=== PATIENT | male | born 1930 | race Hispanic/Latino ===

== ENCOUNTER 2016-09-15 09:15 | Emergency (ER) | payer MEDICARE, OTHER ==
[~2016-09-15] VITALS: Ht 165.1 cm; Wt 84.1 kg
[~2016-09-15 09:15] MED LIST: ACET325T51 PO; ALBU18HF INHALATION; AMLO5TAB2 PO; CHOL10008 PO; CYAN10008 PO; DABI150C PO; DOCU-41 PO; FERR-74 PO; FINA5TAB9 PO; GABA300C PO; KEN1C TOPICAL; KTC2C15 TOPICAL; LACT1CAP6 PO; LEVE500T3 PO; LOSA100T3 PO; LVF250T PO; MELO-253 PO; MULT-666 PO; NIT3 SL
[2016-09-15 09:19] VITALS: BP 190/79; PULSE 61; RESP 16; O2SAT 100
--- NOTE | 2016-09-15 09:28 | ED.REPORT ---
HPI-Neurologic Deficit Date of Service Sep 15, 2016 ED Provider: Quirino Pino DO The patient is an 86 year old male with history of a previous stroke, seizures on Keppra, hypertension, and carotid stenosis, who was brought to the emergency department for altered mental status. The patient normally gets up in the morning after his gets up and gets himself ready. This morning he did not get up on time and was minimally responsive to his when she went to check on him. His states, "he kept looking at me and asking me who I was." This is not normal for him. She is unsure if he had a facial droop or any lateralizing symptoms. His blood pressure was also noted to be elevated in the 200s/100s. He is back to baseline at this time and his only complaint is a rash to his feet and arm. He has been evaluated for this in the past and treated. He was able to take his normal medication this morning. He has not recently been sick. His last seizure was about 2 years ago. He is on 81 mg aspirin daily, no other blood thinners. Nursing Notes Stated Complaint: RASH ON BOTH LEGS/TIRED Chief Complaint: General Complaint Nursing Notes Reviewed: Yes Allergies: Coded Allergies: No Known Allergies (Verified , 04/28/16) Scheduled Amlodipine (Amlodipine) 5 Mg Tablet 5 MG PO DAILY Cholecalciferol (Vitamin D3) (Vitamin D3) 1,000 Unit Tab.chew 1,000 UNIT PO DAILY Cyanocobalamin (Vitamin B-12) (Vitamin B-12) 1,000 Mcg Tablet 1,000 MCG PO DAILY Dabigatran Etexilate Mesylate (Pradaxa) 150 Mg Capsule 150 MG PO BID Ferrous Sulfate (Feosol) 325 Mg Tablet 325 MG PO DAILYWM Finasteride (Finasteride) 5 Mg Tablet 5 MG PO DAILY Gabapentin (Neurontin) 300 Mg Capsule 600 MG PO TID Ketoconazole (Ketoconazole) 15 Gm Cream..g. 1 APPLIC TOPICAL DAILY apply daily to affected areas Lactobacillus Acidophilus/Pect (Acidophilus-Pectin Capsule) 1 Each Capsule 1 EACH PO DAILY Levetiracetam (Levetiracetam) 500 Mg Tablet 1,000 MG PO BID Levofloxacin (Levaquin) 250 Mg Tablet 250 MG PO DAILY Losartan Potassium (Cozaar) 100 Mg Tablet 100 MG PO DAILY Meloxicam (Meloxicam) 15 Mg Tablet 15 MG PO HS Multivitamin (Once Daily) 1 Each Tablet 1 EACH PO DAILY Triamcinolone Acet (Triamcinolone Acetonide Cream) 1 Applic/0.25 Gm Cr 1 APPLIC TOPICAL BID apply twice a day to affected areas Scheduled PRN Acetaminophen (Acetaminophen) 325 Mg Tablet 650 MG PO Q6 HR PRN PRN For Pain Albuterol Sulfate (Ventolin HFA Inhaler) 200 Puff/18 Gm Inhaler 2 PUFFS INHALATION QID PRN PRN For Shortness of Breath Docusate Sodium (Colace) 100 Mg Capsule 100 MG PO DAILY PRN PRN For Constipation Nitroglycerin SL (Nitrostat) 0.3 Mg Tab.subl 0.3 MG SL Q5MIN PRN PRN For Chest Pain General Time Seen by Provider: 09:40 Chief Complaint Mental status change Hx Obtained From: Patient, Spouse, Son Arrived By: Walk-in Sudden in Onset?: Yes Onset Occurred: Onset unknown Context of Onset: During sleep Symptom Duration: Duration unknown Progression Since Onset: Gradually improving Severity: Current: No pain currently Severity: Maximum: No pain Pertinent Negative: Pt denies other symptoms Recent Healthcare: No recent doctor visit, No recent hospitalization Similar Sx Previous: No Risk Factors NIH Stroke Scale Level of Consciousness: Alert and responsive (0) Ask Month & Age: Both questions right (0) Open/Close Eyes/Hand Trimmer Climber: Performs both tasks (0) Horizontal EO Movements: None (0) Visual Diggs: No visual loss (0) Facial Palsy: Normal symmetry (0) Right Arm Motor Drift (10s): No drift 10 sec (0) Left Arm Motor Drift (10s): No drift 10 sec (0) Right Leg Motor Drift (5s): No drift 5 sec (0) Left Leg Motor Drift (5s): No drift 5 sec (0) Limb Ataxia FNF/Heel-Osborne: No ataxia (0) Sensation (Arms/Legs/Face): No sensory loss (0) Language Aphasia: No aphasia, normal (0) Dysarthria: No dysarthria, normal (0) Extinction/Inattention: No exctinct/inattent (0) NIHSS Score: 0 Time NIHSS Performed: 09:53 Date NIHSS Performed: Sep 15, 2016 Past Medical History Past Medical History TIA Seizure Hypertension Anemia Carotid stenosis cataracts Reports: Stroke Past Surgical History Cervical spine surgery x 2 Tonsillectomy, Appendectomy Family History Noncontributory Smoking History Former Smoker Social History Alcohol Use: Denies alcohol use Drug Use: Denies drug use Other Social History: Good social support, , Local resident Ambulatory Status Independent Review of Systems Constitutional: Denies: Fever Respiratory: Denies: Non-productive cough GI: Denies: Diarrhea, Vomiting Skin: Reports Rash Neurologic: Reports: Confusion Psychiatric: Reports: Change mental status Complete sys rev & neg: except as marked. Ears / Nose / Throat: Denies: Nasal congestion, Sore throat Physical Exam Initial Vital Signs Vital Signs (First) Date Time Temp Pulse Resp B/P Pulse Ox O2 Delivery O2 Flow Rate FiO2 09/15/16 09:19 36.0 61 16 190/79 100 Room Air Initial VS: Reviewed ENT: Mucous membranes moist, Conjunctiva normal, No scleral icterus Neck: Supple, Non-tender, Full range of motion Abdomen / GI: Soft, Non-tender, No guarding, No rebound, No distention Lymphatic: No lymphadenopathy Extremities: Vascular intact, Neuro intact, No swelling, No tenderness Psychiatric: Mood/affect normal, Behavior normal, Normal thought content General/Constitutional: Awake, Alert, Cooperative Head / Eyes: Atraumatic, Normocephalic, PERRL, EOMI Respiratory / Chest: Atraumatic, Breath sounds NL, Breath sounds = bilat, No respiratory distress, No rales, No rhonchi, No wheezing Cardiovascular: Heart rate NL, Regular rhythm, Heart sounds NL, No gallop, No murmurs, No rubs, Peripheral circulation NL Neurologic: Oriented X3, Speech NL, No motor deficits, No sensory deficits, CN II - XII intact, Cerebellar NL NIHSS: 0 Skin: Color NL, Warm Rash / Lesion Notes: Excoriated rash on the soles of his feet (family states this is chronic) Interpretation & Diagnostics Lab Results Interpretation Result Diagram: 09/15/16 0950 09/15/16 0950 Test 09/15/16 09:50 White Blood Count 8.9th/mm3 (3.8-10.1) Red Blood Count 3.95mil/mm3 (4.40-5.80) Hemoglobin 12.4g/dL (13.8-17.2) Hematocrit 37.0% (41.0-50.0) Mean Corpuscular Volume 93.7fL (81-100) Mean Corpuscular Hemoglobin 31.4pg (27.0-35.0) Mean Corpuscular Hemoglobin Concent 33.5% (32.0-37.0) Red Cell Distribution Width 12.7% (12.3-15.4) Platelet Count 230bil/L (150-400) Neutrophils (%) (Auto) 59.7% (40-74) Lymphocytes (%) (Auto) 25.7% (14-46) Monocytes (%) (Auto) 11.6% (4-12) Eosinophils (%) (Auto) 2.7% (0-5) Basophils (%) (Auto) 0.2% (0-3) Prothrombin Time 10.4sec (8.1-12.5) Prothromb Time International Ratio 0.97ratio Activated Partial Thromboplast Time 26.4sec (22.8-33.0) Sodium Level 141mEq/L (134-144) Potassium Level 4.0mEq/L (3.5-5.2) Chloride Level 103mEq/L (97-108) Carbon Dioxide Level 22mmol/L (18-29) Blood Urea Nitrogen 20mg/dL (8-27) Creatinine 1.08mg/dL (0.76-1.27) Estimat Glomerular Filtration Rate 69mL/min (>59) Glucose Level 105mg/dL (60-99) Calcium Level 9.9mg/dL (8.5-10.1) Total Bilirubin 0.4mg/dL (0.0-1.2) Aspartate Amino Transf (AST/SGOT) 20U/L (0-50) Alanine Aminotransferase (ALT/SGPT) 15U/L (0-44) Alkaline Phosphatase 76U/L (25-160) Troponin T 0.010ug/L (0.0-0.011) Total Protein 8.0g/dL (6.4-8.4) Albumin 4.4g/dL (3.4-5.0) Hold Macias Top Tube Received (Received) ECG Interpretation ECG Interpretation: Sinus rhythm LBBB Time: 10:28 Interpreted by: ED physician X-Ray Chest Interpretation Chest Xray Interpretation: IMPRESSION: Left basilar infiltrate or atelectasis. Dictated by: Edgar Martin M.D. on 09/15/2016 at 10:16 Interpretation / Wet Read by: Interpret - Radiologist CT Head Interpretation IMPRESSION: 1. No acute intracranial hemorrhage. 2. Extensive chronic small vessel ischemic changes. 3. Mild parenchymal volume loss. Dictated by: Sanjeev Panchal M.D. on 09/15/2016 at 9:31 Study: Head CT no contrast Interpretation / Wet Read by: Interpret - Radiologist Re-Eval/Medical Decision Med Decision/Clinical Course Patient had an isolated episode of altered mental status of unclear etiology there were no reported strokelike symptoms and the patient is back to normal baseline. Discussion with the family would like to take the patient home. Workup unremarkable in the ER. Specifically no urinary tract symptoms. retrurn and follow-up precautions given Source of Hx: Old records, Family Re-Evaluation/Progress #1: Time of Eval: 09:48 Re-Evaluation/Progress Note: Discussed plan for workup with the patient and his family. Re-Evaluation/Progress #2: Time of Eval: 09:56 Re-Evaluation/Progress Note: Discussed exam findings with the patient and family. Re-Evaluation/Progress #3: Time of Eval: 10:59 Re-Evaluation/Progress Note: Rechecked the patient. Updated the family and patient on results. Re-Evaluation/Progress #4: Time of Eval: 12:14 Re-Evaluation/Progress Note: Rechecked the patient. He denies any urinary symptoms. Discussed plan for discharge. All questions were addressed. Counseled Regarding: Diagnosis, Lab results, Need for follow-up, When/why to return to ED Discharge & Departure Impression: Primary Impression: Altered mental status Altered mental status type: unspecified Qualified Code: R41.82 - Altered mental status, unspecified Disposition: Home Discharge Condition All VS Reviewed: Yes Condition: Stable Additional Instructions: Thank you for entrusting us with your care today. Your workup today is reassuring. It is unclear what caused your symptoms this morning. Continue taking your normal medication. Followup with your regular doctor next week for re-evaluation. Please return to the emergency department for any new or concerning symptoms. Referrals: Roderick Rausch MD (PCP) Scribe Attestation Portions of this note were transcribed by Lena Buenrostro. Dr. Alvarez Etienne personally performed the history, physical exam and medical decision-making; I reviewed and confirmed the accuracy of the information in the transcribed note. Signed by: Trista Corona, 09/15/2016 at 1230. copies to: Roderick Rausch MD, Timothy S DO Sep 15, 2016 09:28 Lena Buenrostro Sep 15, 2016 09:32
[2016-09-15] MEDS ORDERED: 0.9% Sodium Chloride 1,000 ML IV ONE (09:49)
[2016-09-15 10:03] LABS: BASOPHILS % (AUTO) 0.2 % (0-3); EOSINOPHILS % (AUTO) 2.7 % (0-5); MONOCYTES % (AUTO) 11.6 % (4-12); Mean Corpuscular Hemoglobin 31.4 pg (27.0-35.0); Mean Corpuscular Volume 93.7 fL (81-100); NEUTROPHILS % (AUTO) 59.7 % (40-74); Platelet Count 230 bil/L (150-400)
--- NOTE | 2016-09-15 10:19 | DRSVH ---
PROCEDURE: X-RAY CHEST ONE VIEW, PORTABLE ([id number]) INDICATIONS: Altered mental status TECHNIQUE: One view of the chest was acquired. COMPARISON: [facility], CR, XR CHEST 2VW, 05/10/2016, 9:12. [facility], CR , XR CHEST 1VW (PORTABLE), 04/30/2016, 5:28. FINDINGS: Surgical changes and devices: Lower cervical spine fusion.. Lungs and pleura: Left basilar opacity may be infiltrate or atelectasis. No pleural effusions or pne umothorax. Mediastinum: Mediastinal contours appear normal. Heart size is normal. Bones and chest wall: No suspicious bony lesions. Overlying soft tissues appear unremarkable. IMPRESSION: Left basilar infiltrate or atelectasis. Dictated by: Edgar Martin M.D. on 09/15/2016 at 10:16 Approved by: Edgar Martin M.D. on 09/15/2016 at 10:17
[2016-09-15 10:30] LABS: INR 0.97 ratio
[2016-09-15 10:31] LABS: TROPONIN T 0.01 ug/L (0.0-0.011)
--- NOTE | 2016-09-15 10:34 | DRSVH ---
PROCEDURE: CT BRAIN WITHOUT CONTRAST ([id number]) INDICATIONS: AMS, h/o CVA, HTN TECHNIQUE: Noncontrast 4.5 mm thick angled axial sections acquired from the foramen magnum to the vertex, with c oronal reformats. COMPARISON: [facility], CT, BRAIN (TPA), 03/23/2015, 16:02. FINDINGS: Image quality: Diagnostic. Brain: There is no acute intra-axial or extra-axial hemorrhage. No extra-axial fluid collection is i dentified. There is no midline shift or mass effect. The orbits are grossly unremarkable. No large areas of diffusely decreased attenuation are evident within the brain to suggest diffuse cer ebral edema. Extensive confluent areas of decreased density are evident within the periventricular a nd deep white matter of the supratentorial brain. This appearance is similar to the prior study. The ventricles and cortical sulci are mildly prominent. Bones: Calvarium and visualized facial bones are grossly intact. The imaged paranasal sinuses and m astoid air cells are clear. IMPRESSION: 1. No acute intracranial hemorrhage. 2. Extensive chronic small vessel ischemic changes. 3. Mild parenchymal volume loss. Dictated by: Sanjeev Panchal M.D. on 09/15/2016 at 9:31 Approved by: Sanjeev Panchal M.D. on 09/15/2016 at 9:32
[2016-09-15 11:10] VITALS: BP 153/67; PULSE 77; RESP 16
--- NOTE | 2016-09-15 11:50 | NUR ---
Evaluation completed. Please go to "Notes" then click on "Assessments and Notes" (bottom left corner of screen). Then select appropriate discipline tab on top of screen.
[2016-09-15 12:55] VITALS: BP 138/77; PULSE 77; RESP 16
== END 2016-09-15 12:56 | disposition home or self-care (01) ==
LOC: SED 09:15
DX: R41.82 Altered mental status, unspecified (principal); I10 Essential (primary) hypertension; Z86.73 Personal history of transient ischemic attack (TIA), and cerebral infarction without residual deficits; Z87.891 Personal history of nicotine dependence
CPT/HCPCS: 70450; 71010; 80053; 84484; 85025; 85610; 85730; 92610; 93005; 99285; G8996; G8997; G8998

== ENCOUNTER 2016-10-21 22:21 | Inpatient (IN) | payer MEDICARE, OTHER ==
[~2016-10-21] VITALS: Ht 165.1 cm; Wt 79.7 kg
[2016-10-21 22:23] VITALS: BP 181/59; PULSE 90; RESP 24; O2SAT 94
[2016-10-21 23:07] LABS: Mean Corpuscular Hemoglobin 31.3 pg (27.0-35.0); Mean Corpuscular Volume 92.5 fL (81-100); Platelet Count 278 bil/L (150-400)
[2016-10-21 23:08] LABS: BASOPHILS % (AUTO) 0.2 % (0-3); EOSINOPHILS % (AUTO) 0.5 % (0-5); MONOCYTES % (AUTO) 9.6 % (4-12)
[2016-10-21 23:49] LABS: TROPONIN T 0.01 ug/L (0.0-0.011)
--- NOTE | 2016-10-21 23:50 | ED.REPORT ---
HPI-Dyspnea / Wheezing Date of Service October 21, 2016 ED Provider: Erick NguyenO. An 86 year old male with a medical history including TIA, seizure, hypertension , and carotid stenosis presents to the ED with worsening shortness of breath onset three days ago. Associated symptoms include cough, left-sided pleuritic chest pain, fever (39 in ED), and chills. The patient denies nausea, vomiting, or other symptoms. Nursing Notes Stated Complaint: DIFFICULTY BREATHING Chief Complaint: Respiratory Complaints Nursing Notes Reviewed: Yes Allergies: Coded Allergies: No Known Allergies (Verified , 04/28/16) Scheduled Amlodipine (Amlodipine) 5 Mg Tablet 5 MG PO DAILY Cholecalciferol (Vitamin D3) (Vitamin D3) 1,000 Unit Tab.chew 1,000 UNIT PO DAILY Cyanocobalamin (Vitamin B-12) (Vitamin B-12) 1,000 Mcg Tablet 1,000 MCG PO DAILY Dabigatran Etexilate Mesylate (Pradaxa) 150 Mg Capsule 150 MG PO BID Ferrous Sulfate (Feosol) 325 Mg Tablet 325 MG PO DAILYWM Finasteride (Finasteride) 5 Mg Tablet 5 MG PO DAILY Gabapentin (Neurontin) 300 Mg Capsule 600 MG PO TID Ketoconazole (Ketoconazole) 15 Gm Cream..g. 1 APPLIC TOPICAL DAILY apply daily to affected areas Lactobacillus Acidophilus/Pect (Acidophilus-Pectin Capsule) 1 Each Capsule 1 EACH PO DAILY Levetiracetam (Levetiracetam) 500 Mg Tablet 1,000 MG PO BID Levofloxacin (Levaquin) 250 Mg Tablet 250 MG PO DAILY Losartan Potassium (Cozaar) 100 Mg Tablet 100 MG PO DAILY Meloxicam (Meloxicam) 15 Mg Tablet 15 MG PO HS Multivitamin (Once Daily) 1 Each Tablet 1 EACH PO DAILY Scheduled PRN Acetaminophen (Acetaminophen) 325 Mg Tablet 650 MG PO Q6 HR PRN PRN For Pain Albuterol Sulfate (Ventolin HFA Inhaler) 200 Puff/18 Gm Inhaler 2 PUFFS INHALATION QID PRN PRN For Shortness of Breath Docusate Sodium (Colace) 100 Mg Capsule 100 MG PO DAILY PRN PRN For Constipation Nitroglycerin SL (Nitrostat) 0.3 Mg Tab.subl 0.3 MG SL Q5MIN PRN PRN For Chest Pain General Time Seen by MD: 23:49 Chief Complaint Shortness of breath Hx Obtained From: Patient Arrived By: Walk-in Onset Occurred: 3 days ago Symptom Duration: Since onset Location: : Chest left Quality: Painful, Pleuritic Severity: Current: Moderate Severity: Maximum: Moderate Exacerbated by: Deep breath Pertinent Negative: Relieved by nothing Recent Healthcare: No recent doctor visit Past Medical History Past Medical History TIA Seizure Hypertension Anemia Carotid stenosis Cataracts Reports: Stroke Past Surgical History Cervical spine surgery x 2 Tonsillectomy, Appendectomy Family History Noncontributory Smoking History Former Smoker Social History Alcohol Use: Denies alcohol use Drug Use: Denies drug use Other Social History: Good social support, , Local resident Ambulatory Status Independent Review of Systems Constitutional: Reports: Chills, Fever (39 in ED) Respiratory: Reports: Pleuritic pain, Shortness of breath Cardiovascular: Reports: Chest pain (Left-sided) Complete sys rev & neg: except as marked. GI: Denies: Diarrhea, Nausea, Vomiting Physical Exam Initial Vital Signs Vital Signs (First) Date Time Temp Pulse Resp B/P Pulse Ox O2 Delivery O2 Flow Rate FiO2 10/21/16 22:23 39 90 24 181/59 94 Room Air Initial VS: Reviewed Head / Eyes: Atraumatic, Normocephalic ENT: Conjunctiva normal, No scleral icterus Abdomen / GI: Soft, Non-tender Skin: Warm, Dry, No cyanosis Neurologic: Alert, Oriented, Nonfocal Psychiatric: Mood/affect normal, Behavior normal, Normal thought content General/Constitutional: Awake, Alert, No acute distress Neck: Supple, Full range of motion Respiratory / Chest: Breath sounds = bilat, No respiratory distress Crackles bilateral lung bases Cardiovascular: Heart rate NL, Regular rhythm, Heart sounds NL Interpretation & Diagnostics INFLUENZA NEGATIVE Lab Results Interpretation Result Diagram: 10/22/16 0500 10/22/16 0500 Test 10/21/16 23:00 Phosphorus Level 3.1mg/dL (2.5-4.9) Magnesium Level 1.8mg/dL (1.6-2.6) Iron Level 17ug/dL (35-150) Total Iron Binding Capacity 219ug/dL (250-450) Percent Iron Saturation 8%sat (15-50) Unsaturated Iron Binding 202ug/dL Procalcitonin 0.05ng/mL (0.00-0.08) Hold Macias Top Tube Received (Received) General Lab Results Interp 1: Labs reviewed, CBC - leukocytosis, Troponin # 1 normal ECG Interpretation ECG Interpretation: Sinus rhythm rate 86 Multiple PVCs LBBB Time: 23:05 Interpreted by: ED physician X-Ray Chest Interpretation Chest Xray Interpretation: Left lower lobe pneumonia View: Portable, 1 view Interpretation / Wet Read by: Wet read ED physician Re-Eval/Medical Decision Med Decision/Clinical Course 86 year old male presents with fever, rigors and cough. He is found to have pneumonia and leukocytosis. Broad spectrum abx for HCA (recent health care visits) and IV fluids. Will admit to PCU Source of Hx: Old records Re-Evaluation/Progress : Time of Eval: 00:30 Patient Status: Condition improved Re-Evaluation/Progress Note: Discussed with patient x-ray and lab results, diagnosis, and plan for admit. Patient agrees with plan for care and all questions were addressed. Consultation : Referral / Consult Name: Tera Amador MD Consulted With: Hospitalist Call Returned at: 00:31 Parking Garage Manager: Agrees with eval, Agrees with plan, Accepts admit Counseled Regarding: Diagnosis, Lab results, Need for admission Discharge & Departure Impression: Primary Impression: Left lower lobe pneumonia Pneumonia type: due to unspecified organism Qualified Code: J18.1 - Lobar pneumonia, unspecified organism Disposition: ADMITTED TO HOSPITAL Discharge Condition All VS Reviewed: Yes Condition: Improved Referrals: Roderick Rausch MD (PCP) Scribe Attestation Portions of this note were transcribed by Jammie Cano. I, Dr. Izaguirre, personally performed the history, physical exam, and medical decision-making; I reviewed and confirmed the accuracy of the information in the transcribed note. Signed by: Trista Ibarra, 10/22/2016, 02:50 copies to: Roderick Rausch MD, Todd P DO October 21, 2016 23:50 JAMMIE CANO October 22, 2016 02:28 1.8mg/dL (1.6-2.6) Iron Level 17ug/dL (35-150) Total Iron Binding Capacity 219ug/dL (250-450) Percent Iron Saturation 8%sat (15-50) Unsaturated Iron Binding 202ug/dL Total Bilirubin 0.3mg/dL (0.0-1.2) Aspartate Amino Transf (AST/SGOT) 31U/L (0-50) Alanine Aminotransferase (ALT/SGPT) 18U/L (0-44) Alkaline Phosphatase 102U/L (25-160) Troponin T 0.010ug/L (0.0-0.011) Total Protein 7.4g/dL (6.4-8.4) Albumin 3.7g/dL (3.4-5.0) Procalcitonin 0.05ng/mL (0.00-0.08) Hold Macias Top Tube Received (Received) General Lab Results Interp 1: Labs reviewed, CBC - leukocytosis, Troponin # 1 normal ECG Interpretation ECG Interpretation: Sinus rhythm rate 86 Multiple PVCs LBBB Time: 23:05 Interpreted by: ED physician X-Ray Chest Interpretation Chest Xray Interpretation: Left lower lobe pneumonia View: Portable, 1 view Interpretation / Wet Read by: Wet read ED physician Re-Eval/Medical Decision Source of Hx: Old records Re-Evaluation/Progress : Time of Eval: 00:30 Patient Status: Condition improved Re-Evaluation/Progress Note: Discussed with patient x-ray and lab results, diagnosis, and plan for admit. Patient agrees with plan for care and all questions were addressed. Consultation : Referral / Consult Name: Tera Amador MD Consulted With: Hospitalist Call Returned at: 00:31 Parking Garage Manager: Agrees with eval, Agrees with plan, Accepts admit Counseled Regarding: Diagnosis, Lab results, Need for admission Discharge & Departure Impression: Primary Impression: Left lower lobe pneumonia Pneumonia type: due to unspecified organism Qualified Code: J18.1 - Lobar pneumonia, unspecified organism Disposition: ADMITTED TO HOSPITAL Discharge Condition All VS Reviewed: Yes Condition: Improved Referrals: Roderick Rausch MD (PCP) Trista Attestation Portions of this note were transcribed by Jammie Cano. I, Dr. Izaguirre, personally performed the history, physical exam, and medical decision-making; I reviewed and confirmed the accuracy of the information in the transcribed note. Signed by: Trista Ibarra, 10/22/2016, 02:50 copies to: Roderick Rausch MD, Todd P DO October 21, 2016 23:50 JAMMIE CANO October 22, 2016 02:28
[2016-10-21] MEDS ORDERED: Piperacillin-Tazo 3.375 Gm Inj 3.375 GM in Dextrose 5% Minibag Plus 50 ML IV ONE (23:55)
[2016-10-22] VITALS (12 sets, daily range): BP systolic 130–155; BP diastolic 51–69; PULSE 60–88; RESP 16–20; O2SAT 94–97
[2016-10-22] LABS: Magnesium 1.8 mg/dL (1.6-2.6)
[2016-10-22] MEDS ORDERED: 0.9% Sodium Chloride 1,000 ML IV ONE (00:20)
--- NOTE | 2016-10-22 00:44 | PCM.HPMED ---
Subjective Date of Service October 22, 2016 Primary Provider: Admitting Physician: Primary Care Physician: Roderick Rausch MD Attending Physician: Chief Complaint: Wheezing/dyspnea History of Present Illness: 86-year-old male with a history of hypertension, seizures, stroke, and recent history of pneumonia in May 2016 presents to the emergency department due to 3-4 days worth of cough with nonbloody sputum, dyspnea worse with exertion, chest pain, and fever with chills. Patient states that this came on gradually she developed cough with yellow sputum production and reported fevers. Patient states this gradually gotten worse and today he was having very severe chills and riders. Patient denies any recent contacts or hospital stays in the last 3 months. 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 His confirms this. Patient denies nausea and vomiting, diarrhea, or anorexia. He states his chest pain was worse with deep inspiration and without radiation, diaphoresis, lightheadedness or dizziness, but does state it was substernal. In the Emergency department the patient was febrile with a fever of 39. Blood pressure was 181/59 with pulse of 90 and respiratory rate of 24. Saturating 94 % on room air Leukocytosis of 17.7 and left shift with a mild anemia with a hemoglobin of 10.4. Patient was also hyponatremic with a sodium of 129, hypochloremic at 91, and hyperglycemic at 161. Procalcitonin was pending as was a lactic acid. Review of Systems: Complete review of systems performed; pertinent positives and negatives per History of present illness all others reviewed and are negative Allergies Coded Allergies: No Known Allergies (Verified , 04/28/16) Home Medications Amlodipine (Amlodipine) 5 Mg Tablet 5 MG PO DAILY Cholecalciferol (Vitamin D3) (Vitamin D3) 1,000 Unit Tab.chew 1,000 UNIT PO DAILY Cyanocobalamin (Vitamin B-12) (Vitamin B-12) 1,000 Mcg Tablet 1,000 MCG PO DAILY Dabigatran Etexilate Mesylate (Pradaxa) 150 Mg Capsule 150 MG PO BID Ferrous Sulfate (Feosol) 325 Mg Tablet 325 MG PO DAILYWM Finasteride (Finasteride) 5 Mg Tablet 5 MG PO DAILY Gabapentin (Neurontin) 300 Mg Capsule 600 MG PO TID Ketoconazole (Ketoconazole) 15 Gm Cream..g. 1 APPLIC TOPICAL DAILY apply daily to affected areas Lactobacillus Acidophilus/Pect (Acidophilus-Pectin Capsule) 1 Each Capsule 1 EACH PO DAILY Levetiracetam (Levetiracetam) 500 Mg Tablet 1,000 MG PO BID Levofloxacin (Levaquin) 250 Mg Tablet 250 MG PO DAILY Losartan Potassium (Cozaar) 100 Mg Tablet 100 MG PO DAILY Meloxicam (Meloxicam) 15 Mg Tablet 15 MG PO HS Multivitamin (Once Daily) 1 Each Tablet 1 EACH PO DAILY Triamcinolone Acet (Triamcinolone Acetonide Cream) 1 Applic/0.25 Gm Cr 1 APPLIC TOPICAL BID Acetaminophen (Acetaminophen) 325 Mg Tablet 650 MG PO Q6 HR PRN PRN For Pain Albuterol Sulfate (Ventolin HFA Inhaler) 200 Puff/18 Gm Inhaler 2 PUFFS INHALATION QID PRN PRN For Shortness of Breath Docusate Sodium (Colace) 100 Mg Capsule 100 MG PO DAILY PRN PRN For Constipation Nitroglycerin SL (Nitrostat) 0.3 Mg Tab.subl 0.3 MG SL Q5MIN PRN PRN For Chest Pain PMH TIA Seizure Hypertension Anemia Carotid stenosis cataracts Reports: Stroke Surgical History Cervical spine surgery x 2 Tonsillectomy, Appendectomy Social History Hx Alcohol Use: No Hx Substance Use: No Hx Tobacco Use: Yes (quit 20yrs ago) Smoking Status: Former Smoker Exam Vital Signs Vital Sign - Last Date Time Temp Pulse Resp B/P Pulse Ox O2 Delivery O2 Flow Rate FiO2 10/21/16 22:23 39 90 24 181/59 94 Room Air Exam General: Patient awake and alert and conversive; one to the touch HEENT: PERRLA, EOMI, this membrane stride, neck supple, skin turgor decreased Lymphs: No lymphadenopathy Cardio: Regular rate and rhythm, no murmurs Respiratory: CTA bilaterally with rhonchi in the right lower lobe; crackles left lower lobe Abdomen: Obese, positive bowel sounds, nontender, nondistended Extremities: Pulses intact in all 4 extremities, strength 4 out of 5 throughout Psych: Appropriate mood and affect Neuro: No sensory deficits noted; CN II through XII intact grossly; speech normal Skin: Patient has sloughing skin on the hands and elbows, as well as on the feet bilaterally; 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 Sepsis, source pneumonia; present on admission; ongoing -Patient criteria with leukocytosis of 17.7, fever 39, respirations of 24 -Lactic acid pending -See below for treatment Community acquired pneumonia; present admission; ongoing -Patient has no sick contacts; has not been the hospital or nursing homes; possibility of aspiration is low unless it is silent -CURB-65 is 1 -Blood cultures taken the ED; respiratory panel ordered; sputum cultures ordered -Started patient on ceftriaxone and azithromycin -Incentive spirometry ordered -Speech evaluation also requested -Procal pending -Strep urine ag ordered Chest pain; present admission; ongoing -Suspicious for pleuritic chest pain; due to patient's age, hx of hypertension, and pain being substernal will rule out unlikely ACS; -Initial troponin negative; EKG showed possible left bundle branch block and some nonspecific T-wave changes but no elevations -Pain is currently resolved -Continue trending troponin -Consider echo in a.m.; last EF 50-55% with noted conduction abnormality Hypertension; present admission; ongoing -Patient's on amlodipine and losartan as an outpatient; patient has a history of -SBP is 181 in the ED -Labetalol 20 mg IV for blood pressure over 180 Acute hyponatremia; present admission; ongoing -130 corrected; patient appears to be hypovolemic; -Patient receiving 2-3 L NS for sepsis -Urine sodium ordered Anion gap metabolic acidosis second asepsis; present admission; ongoing -Anion gap of 16 -Lactic acid pending -Recheck in a.m. after fluid administration Normocytic normochromic anemia; present on admission; ongoing -Patient presents with a hemoglobin of 10.4; patient has a history of anemia -Iron studies ordered Acute Hyperglycemia; present on admission; ongoing -Patient presents for glucose of 161 history of diabetes -Patient placed on correctional insulin Disposition: Patient to be admitted to the [facility] expected length of stay greater than 2 midnights due to severity of presentation, depression treatment, risk of adverse events. Pain Evaluation: Adequate Pain Control VTE Prophylaxis: Sub-Q Heparin (Unfractionated) Resuscitation Status: CPR: Attempt Resuscitation Attending Statement The patient was seen and examined together with Dr. Martinez on 10/22 and I agree with the history, exam and plan as outlined in the note above. Adrian Martinez DO October 22, 2016 00:44 Tera Amador MD October 22, 2016 03:46
[2016-10-22] MEDS ORDERED: 0.9% Sodium Chloride 1,000 ML IV SCH (01:29)
[2016-10-22] MEDS ORDERED: Ondansetron 2 mg/mL 2 mL Inj IVPUSH PRN (01:30)
[2016-10-22] MEDS ORDERED: Alum-Mag Hydrox-Simeth 30 mL Suspension PO PRN (01:30)
[2016-10-22] MEDS ORDERED: Polyethylene Glycol (PEG) 17 Gm Powder PO PRN (01:30)
[2016-10-22 01:31] LABS: APPEARANCE,URINE CLEAR (CLEAR,HAZY); COLOR,URINE YELLOW (YELLOW); OCCULT BLOOD,URINE TRACE (NEGATIVE); UROBILINOGEN,URINE NORMAL (NORMAL)
[2016-10-22] MEDS ORDERED: Labetalol 5 mg/mL 4 mL Inj IVPUSH ONE (01:40)
[2016-10-22 02:12] LABS: Unsaturated Iron Binding 202 ug/dL
[2016-10-22] MEDS: Insulin Human REGular 300 Unit/3 mL Inj SUBQ SCH ×4 (02:30→20:25)
[2016-10-22] MEDS: 0.9% Sodium Chloride 1,000 ML IV SCH ×3 (03:30→17:29)
[2016-10-22 05:26] LABS: BASOPHILS % (AUTO) 0.1 % (0-3); EOSINOPHILS % (AUTO) 0.2 % (0-5); MONOCYTES % (AUTO) 9.7 % (4-12); Mean Corpuscular Hemoglobin 31.5 pg (27.0-35.0); Mean Corpuscular Volume 93.3 fL (81-100); NEUTROPHILS % (AUTO) 78.3 % (40-74); Platelet Count 260 bil/L (150-400)
[2016-10-22 05:37] LABS: TROPONIN T 0.01 ug/L (0.0-0.011)
[2016-10-22] MEDS ORDERED: Heparin 5,000 Unit/mL Inj SUBQ SCH (08:30)
[2016-10-22] MEDS ORDERED: Azithromycin Inj 500 MG in Dextrose 5% w/Vial Mate 250 ML IV SCH (08:30)
[2016-10-22] MEDS ORDERED: cefTRIAXone Inj 2,000 MG in Dextrose 5% Minibag Plus 50 ML IV SCH (08:30)
--- NOTE | 2016-10-22 09:06 | DRSVH ---
PROCEDURE: X-RAY CHEST ONE VIEW, PORTABLE ([id number]) INDICATIONS: cp TECHNIQUE: One view of the chest was acquired. COMPARISON: [facility], CR, XR CHEST 1VW, 10/22/2016, 0:18. [facility], CR, XR CHEST 1VW (PORTABLE), 09/15/2016, 9:53. FINDINGS: Surgical changes and devices: Cervical spine fixation hardware. Lungs and pleura: No pleural effusions or pneumothorax. Patchy opacity noted in the left lung base s uspicious for pneumonia versus aspiration. Mediastinum: Mediastinal contours appear normal. Heart size is normal. Bones and chest wall: No suspicious bony lesions. Overlying soft tissues appear unremarkable. IMPRESSION: Left basilar pneumonia versus aspiration. Dictated by: Ashley Hinton MD, PhD on 10/22/2016 at 9:04 Approved by: Ashley Hinton MD, PhD on 10/22/2016 at 9:05
[2016-10-22] MEDS: Sodium Chloride LOK Flush 10 mL Syringe IVFLUSH SCH ×2 (09:08→17:48)
--- NOTE | 2016-10-22 09:11 | DRSVH ---
PROCEDURE: X-RAY CHEST ONE VIEW ([id number]) INDICATIONS: lateral to complete 2 view TECHNIQUE: One view of the chest was acquired. COMPARISON: [facility], CR, XR CHEST 1VW (PORTABLE), 10/21/2016, 22:25. FINDINGS: Surgical changes and devices: None. Lungs and pleura: No pleural effusions or pneumothorax. Focal opacity noted in the posterior aspect of the left lung base suspicious for aspiration versus pneumonia. Mediastinum: Mediastinal contours appear normal. Heart size is normal. Bones and chest wall: No suspicious bony lesions. Overlying soft tissues appear unremarkable. IMPRESSION: Left basilar aspiration versus pneumonia. Dictated by: Ashley Hinton MD, PhD on 10/22/2016 at 9:10 Approved by: Ashley Hinton MD, PhD on 10/22/2016 at 9:10
[2016-10-22] MEDS ORDERED: Dextrose 10% 250 ML IV PRN (10:40)
[2016-10-22] MEDS ORDERED: Glucose 40% Oral Gel 15 Gm Tube PO PRN (10:40)
[2016-10-22] MEDS: Insulin LISPRO 300 Unit/3 mL Inj SUBQ SCH ×3 (12:00→22:00)
[2016-10-22] MEDS: Dabigatran 150 mg Capsule PO SCH ×2 (12:18→20:37)
[2016-10-22] MEDS: levETIRAcetam 500 mg Tablet PO SCH ×2 (12:18→20:38)
--- NOTE | 2016-10-22 19:33 | PCM.PNMED ---
Subjective Date of Service October 22, 2016 Subjective Hospital day 2. Patient complaining of his chronic back pain for which he takes Tylenol and occasionally meloxicam. 2 L by nasal cannula admitted overnight for some dyspnea. Today he reports that he is doing very much better. Denies significant complaint at this time. ROS negative otherwise. Exam Vital Signs Vital Sign - Last Date Time Temp Pulse Resp B/P Pulse Ox O2 Delivery O2 Flow Rate FiO2 10/22/16 15:45 36.7 70 18 144/58 95 Room Air 10/22/16 12:24 2.00 Intake and Output 10/21/16 10/21/16 10/22/16 Cumulative From/Thru 15:00 23:00 07:00 10/21/16 22:23 - 10/22/16 06:48 Intake Total 1383 ml 1383 ml Output Total 900 ml 900 ml Balance 483 ml 483 ml IV Total 1383 ml 1383 ml Output Urine Total 900 ml 900 ml Exam General: Patient awake and alert and conversive HEENT: PERRLA, EOMI, this membrane stride, neck supple, skin turgor improved Lymphs: No lymphadenopathy Cardio: Regular rate and rhythm, no murmurs Respiratory: Mild rales in the bilateral bases. Normal respiratory effort on 2 L by nasal cannula. 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 Sepsis, source pneumonia; present on admission; ongoing but improving -Patient criteria with leukocytosis of 17.7, fever 39, respirations of 24 -Lactic acid normalized -See below for treatment Community acquired pneumonia (viral with secondary bacterial); present admission ; ongoing -Patient has no sick contacts; has not been the hospital or nursing homes; possibility of aspiration is low unless it is silent -CURB-65 is 1 -Rhinovirus positive -Positive streptococcal urine antigen -Started patient on ceftriaxone and azithromycin, but these were both discontinued today with initiation of IV penicillin G -Incentive spirometry ordered -Speech evaluation also requested -Procal repeat Chest pain; present admission; resolved -Suspicious for pleuritic chest pain; due to patient's age, hx of hypertension, and pain being substernal will rule out unlikely ACS; -Initial troponin negative; EKG showed possible left bundle branch block and some nonspecific T-wave changes but no elevations -Pain is currently resolved -Continue trending troponin -Consider echo in a.m.; last EF 50-55% with noted conduction abnormality Hypertension; present admission; ongoing -Patient's on amlodipine and losartan as an outpatient; patient has a history of -SBP is 181 in the ED -Labetalol 20 mg IV for blood pressure over 180 Acute hyponatremia; present admission; ongoing but slowly improving -130 corrected; patient appears to be hypovolemic; -Patient receiving 2-3 L NS for sepsis -Urine sodium ordered, and we will add serum and urine osmolality Anion gap metabolic acidosis second asepsis; present admission; ongoing -Anion gap of 16 -Lactic acid normalized -Recheck in a.m. after fluid administration -Treat underlying condition of sepsis Normocytic normochromic anemia; present on admission; ongoing -Patient presents with a hemoglobin of 10.4; patient has a history of anemia -Iron studies ordered Acute Hyperglycemia; present on admission; ongoing -Patient presents for glucose of 161 history of diabetes -Patient placed on correctional insulin (switched to every 6 with meals today as patient is eating) Chronic conditions: Seizure-continue Keppra STroke-patient is on Peridex, this will be continued. Tylenol as needed for his chronic pains. Patient to be admitted to the [facility] expected length of stay greater than 2 midnights due to severity of presentation, depression treatment, risk of adverse events. Anticipate patient will discharge in 1-2 days. Pain Evaluation: Adequate Pain Control VTE Prophylaxis: Sub-Q Heparin (Unfractionated) Resuscitation Status: CPR: Attempt Resuscitation Attending Statement The patient was seen and examined together with Dr. Lind on 10/22/2016 and I agree with the history, exam and plan as outlined in the note above. . Misael Muñoz DO October 22, 2016 19:33 Jorge Workman MD October 23, 2016 14:25
[2016-10-23] VITALS (9 sets, daily range): BP systolic 116–177; BP diastolic 71–101; PULSE 53–81; RESP 14–18; O2SAT 94–98
[2016-10-23] MEDS: 0.9% Sodium Chloride 1,000 ML IV SCH ×3 (00:26→17:29)
[2016-10-23] MEDS: Sodium Chloride LOK Flush 10 mL Syringe IVFLUSH SCH ×3 (00:26→14:53)
[2016-10-23 04:31] LABS: Mean Corpuscular Hemoglobin 31.5 pg (27.0-35.0); Mean Corpuscular Volume 93.8 fL (81-100)
[2016-10-23] MEDS: Insulin Human REGular 300 Unit/3 mL Inj SUBQ SCH ×4 (04:32→20:30)
[2016-10-23] MEDS: Insulin LISPRO 300 Unit/3 mL Inj SUBQ SCH ×4 (08:00→20:40)
[2016-10-23] MEDS: DEXTROSE 5% IV SCH ×3 (08:32→20:36)
[2016-10-23] MEDS: levETIRAcetam 500 mg Tablet PO SCH ×2 (08:32→20:36)
[2016-10-23] MEDS: PENICILLIN K IV SCH ×3 (08:32→20:36)
[2016-10-23] MEDS: Dabigatran 150 mg Capsule PO SCH ×2 (08:32→20:36)
--- NOTE | 2016-10-23 17:59 | PCM.PNMED ---
Subjective Date of Service October 23, 2016 Subjective Mr. Narayanan is an 86-year-old male with a history of hypertension, seizures, stroke , and recent pneumonia in May 2016. He presented with a 3-4 days history of productive cough, dyspnea on exertion, chest pain, fever and chills. Admitted for sepsis secondary to community acquired pneumonia and hyponatremia. Hospital day #2. No acute events overnight. Per nursing, patient somewhat forgetful but otherwise had a good night; remained afebrile and without complaint. This morning patient states that he feels great and would like to go home. He denies fever, chills, chest pain, shortness of breath, abdominal pain, nausea, vomiting , diarrhea or constipation. Exam Vital Signs Vital Sign - Last Date Time Temp Pulse Resp B/P Pulse Ox O2 Delivery O2 Flow Rate FiO2 10/23/16 04:20 36.8 72 18 125/78 96 Room Air 10/22/16 12:24 2.00 Intake and Output 10/22/16 10/22/16 10/23/16 Cumulative From/Thru 15:00 23:00 07:00 10/21/16 22:23 - 10/23/16 05:26 Intake Total 2020 ml 1000 ml 4403 ml Output Total 1400 ml 300 ml 2600 ml Balance 620 ml 700 ml 1803 ml Intake Oral 880 ml 1000 ml 1880 ml IV Total 1140 ml 2523 ml Output Urine Total 1400 ml 300 ml 2600 ml # Voids 3 3 # Bowel Movements 2 2 Exam General: Well-appearing, elderly male, sitting up in the chair, in no acute distress HEENT: Normocephalic, atraumatic. PERRLA, no scleral icterus, oral mucosa moist/ pink Neck: No JVD, lymphadenopathy or thyromegaly. Cardiovascular: Regular rate and rhythm with no murmurs, rubs, or gallops appreciated Pulmonary: Mild bibasilar crackles but otherwise clear to auscultation bilaterally, no wheezing. Abdomen: Soft, nontender, nondistended, no masses appreciated. Bowel tones present. Extremities: No cyanosis or edema, pulses intact and equal bilaterally Skin: Normal temperature, turgor, flaky skin on the hands, feet and elbows bilaterally. No rashes. Neurological: Cranial nerves grossly intact. No focal deficit, speech normal. Psychiatric: Normal mood and affect. Alert and oriented to person, place, and time. IVs and Medications Medications Reviewed: Medications were reviewed in detail Lab and Diagnostics Laboratory Tests Test 10/22/16 11:30 10/23/16 03:00 Troponin T 0.010ug/L (0.0-0.011) White Blood Count 13.8th/mm3 (3.8-10.1) Red Blood Count 3.37mil/mm3 (4.40-5.80) Hemoglobin 10.6g/dL (13.8-17.2) Hematocrit 31.6% (41.0-50.0) Mean Corpuscular Volume 93.8fL (81-100) Mean Corpuscular Hemoglobin 31.5pg (27.0-35.0) Mean Corpuscular Hemoglobin Concent 33.5% (32.0-37.0) Red Cell Distribution Width 12.5% (12.3-15.4) Platelet Count 275bil/L (150-400) Sodium Level 133mEq/L (134-144) Potassium Level 4.4mEq/L (3.5-5.2) Chloride Level 96mEq/L (97-108) Carbon Dioxide Level 21mmol/L (18-29) Blood Urea Nitrogen 12mg/dL (8-27) Creatinine 0.80mg/dL (0.76-1.27) Estimat Glomerular Filtration Rate 97mL/min (>59) Glucose Level 122mg/dL (60-99) Calcium Level 9.1mg/dL (8.5-10.1) Procalcitonin 0.24ng/mL (0.00-0.08) Microbiology 10/22/16 Blood Culture - NO GROWTH AFTER 24 HOURS 10/22/16 Sputum Quality Screen - 10/22/16 Sputum Culture, Resulted 10/22/16 Streptococcus pneumoniae Ag Screen - Positive Result Diagram: 10/23/16 0300 10/23/16 0300 Microbiology 10/22/16 Blood cultures- NO GROWTH at 24H 10/22/16 Sputum culture- NO POLYS SEEN, FEW EPITHELIAL CELLS, MODERATE MIXED NORMAL JOSSELINE 10/22/16 MRSA screen- negative 10/22/16 Respiratory PCR- positive for Rhinovirus X-Rays, CTs and MRIs CXR: Official report pending, but it appears to be consolidations in the right lower lobe Assessment & Plan Mr. Narayanan is an 86-year-old male with a history of hypertension, seizures, stroke , and recent pneumonia in May 2016. He presented with a 3-4 days history of productive cough, dyspnea on exertion, chest pain, fever and chills. Admitted for sepsis secondary to community acquired pneumonia and hyponatremia. Hospital day #2. Streptococcal/viral pneumonia, acute. Present on admission. Active. -Resp PCR positive for Rhinovirus. Positive streptococcal urine antigen -Procalcitonin trended up, 0.24. WBC trended down, 13.4 -Continue IV penicillin G (received ceftriaxone/azithromycin on admission changed on 10/22) -Procalcitonin in the morning -Encourage incentive spirometry Hypertension, chronic. Present on admission. Active. -Patient's on amlodipine and losartan as an outpatient. SBP 181 at presentation. -Continue home medications. -Labetalol 20 mg IV for blood pressure over 180 Hyponatremia, acute. Present admission. Improving. -Likely secondary to dehydration/poor oral intake. Patient clinically appeared hypovolemic on admission. -Received 3L NS for sepsis and sodium slowly improving. Most recent 133. -Repeat BMP in morning Anion gap metabolic acidosis, acute. Present on admission. Active. -Likely secondary to sepsis presentation. Anion gap of 16 -Lactic acid normalized -Repeat CMP in the morning -Treat underlying infection Normocytic normochromic anemia. Present on admission. Active. -Patient with history of anemia and Hb of 10.4. -Supplemental iron. Hyperglycemia, acute. Present on admission. Active. -Glucose of 161 without diagnosis of diabetes -Check HbA1c -Continue correctional insulin. Sepsis, acute. Present on admission. Resolved. -Likely secondary to pneumonia. Met criteria with: leukocytosis of 17.7, fever 39, respirations of 24 -Lactic acid normalized Chest pain, acute. Present admission. Resolved -Likely pleuritic chest pain secondary to pneumonia. ACS less likely as troponin neg x2, EKG w/no acute ischemic changes. Other Chronic conditions. Present on admission. Presumed stable: -Unspecified seizure disorder- continue home Keppra. -History of CVA- continue home Peridex. Disposition: Patient will likely discharge home in 1-2 days. VTE Prophylaxis: Sub-Q Heparin (Unfractionated) Resuscitation Status: CPR: Attempt Resuscitation Attending Statement The patient was seen and examined together with Dr. Maki on 10-23-16 and I agree with the history, exam and plan as outlined in the note above. Alva Maki DO October 23, 2016 08:18 Jd Reed MD October 24, 2016 16:47
[2016-10-24] VITALS (9 sets, daily range): BP systolic 149–194; BP diastolic 56–105; PULSE 60–78; RESP 17–18; O2SAT 94–96
[2016-10-24] MEDS: Sodium Chloride LOK Flush 10 mL Syringe IVFLUSH SCH ×3 (00:26→16:41)
[2016-10-24] MEDS: 0.9% Sodium Chloride 1,000 ML IV SCH ×2 (00:27→09:44)
[2016-10-24] MEDS: Insulin Human REGular 300 Unit/3 mL Inj SUBQ SCH ×2 (00:27→08:28)
[2016-10-24] MEDS: DEXTROSE 5% IV SCH ×3 (03:14→17:17)
[2016-10-24] MEDS: PENICILLIN K IV SCH ×3 (03:14→17:17)
[2016-10-24 06:58] LABS: BASOPHILS % (AUTO) 0.2 % (0-3); EOSINOPHILS % (AUTO) 2.4 % (0-5); MONOCYTES % (AUTO) 11.9 % (4-12); Mean Corpuscular Hemoglobin 31.5 pg (27.0-35.0); Mean Corpuscular Volume 91.3 fL (81-100); NEUTROPHILS % (AUTO) 68.5 % (40-74); Platelet Count 340 bil/L (150-400)
[2016-10-24] MEDS: Insulin LISPRO 300 Unit/3 mL Inj SUBQ SCH ×4 (08:00→21:26)
[2016-10-24] MEDS: levETIRAcetam 500 mg Tablet PO SCH ×2 (08:38→20:52)
[2016-10-24] MEDS: Dabigatran 150 mg Capsule PO SCH ×2 (08:38→20:52)
--- NOTE | 2016-10-24 11:18 | DRSVH ---
PROCEDURE: X-RAY CHEST, TWO VIEWS ([id number]) INDICATIONS: Follow up for Pneumonia TECHNIQUE: 2 views of the chest were acquired. COMPARISON: [facility], CR, XR CHEST 1VW (PORTABLE), 10/21/2016, 22:25. [facility], CR, XR CHEST 1VW, 10/22/2016, 0:18. [facility], CR, XR CHEST 2VW, 05/10/2016, 9: 12. FINDINGS: Surgical changes and devices: Lower cervical spine fixation hardware. Lungs and pleura: Persistent left basilar airspace opacity not significantly changed from prior exami nation. Right lung is clear. Mediastinum: Mediastinal contours are normal. Heart size is normal. Bones and chest wall: No suspicious bony abnormalities. Soft tissues appear unremarkable. IMPRESSION: Left posterior basilar consolidation not significantly changed from the most recent chest radiograph. Continued radiographic surveillance to resolution is recommended. Dictated by: Mika SPANGLER Interpreted: Yana Galvan MD on 10/24/2016 at 11:15 Transcribed by: BRENNA on 10/24/2016 at 11:17 Approved by: Yana Galvan M.D. on 10/25/2016 at 15:56
--- NOTE | 2016-10-24 23:08 | PCM.PNMED ---
Subjective Date of Service October 24, 2016 Subjective Patient is feeling a little bit better today. He has no new complaints. Exam Vital Signs Vital Sign - Last Date Time Temp Pulse Resp B/P Pulse Ox O2 Delivery O2 Flow Rate FiO2 10/24/16 22:02 36.9 71 17 175/75 95 Room Air 10/22/16 12:24 2.00 Intake and Output 10/23/16 10/23/16 10/24/16 Cumulative From/Thru 15:00 23:00 07:00 10/21/16 22:23 - 10/24/16 04:20 Intake Total 1190 ml 5593 ml Output Total 1250 ml 3850 ml Balance -60 ml 1743 ml Intake Oral 1190 ml 3070 ml IV Total 2523 ml Output Urine Total 1250 ml 3850 ml # Voids 3 6 # Bowel Movements 2 Exam General: Patient is in no apparent distress resting comfortably in bed with head elevated at approximately 30. HEENT: Head is atraumatic and normocephalic. Eyes: Pupils are equally round and reactive to light and accommodation. Extraocular muscles are intact. Sclera are white, anicteric. Subconjunctival mucosa is pink. Ears and nose are unremarkable. Oropharynx: There is no mucosal lesions, there is no thrush, there is no pharyngitis. Neck: Is supple, there are no nodes, or masses or tenderness. Chest: Is significant for decreased breath sounds bilaterally with a few adventitious sounds. Heart: Rate, rhythm is regular. There is no murmur, rub or gallop. Abdomen: Good bowel sounds are present. Abdomen is soft, nontender, no organomegaly or masses were appreciated. Extremities: Are symmetrical and well perfused. There is no edema, there is no cellulitis, no rash. Neurologic: There are no focal neurological deficits. Cranial nerves II through XII are intact. There are no sensory or motor deficits. Psychiatric: Patients mood is calm and shows no sign of agitation. Genital: Deferred Rectal: Deferred Lab and Diagnostics Result Diagram: 10/24/16 0625 10/24/16 0625 Microbiology 10/22/16 Blood cultures- NO GROWTH at 24H 10/22/16 Sputum culture- NO POLYS SEEN, FEW EPITHELIAL CELLS, MODERATE MIXED NORMAL JOSSELINE 10/22/16 MRSA screen- negative 10/22/16 Respiratory PCR- positive for Rhinovirus X-Rays, CTs and MRIs Caution: Report not yet finalized and possibly incomplete! PROCEDURE: X-RAY CHEST, TWO VIEWS ([id number]) INDICATIONS: Follow up for Pneumonia TECHNIQUE: 2 views of the chest were acquired. COMPARISON: [facility], CR, XR CHEST 1VW (PORTABLE), 10/21/2016, 22: 25. [facility], CR, XR CHEST 1VW, 10/22/2016, 0:18. [facility], CR, XR CHEST 2VW, 05/10/2016, 9:12. FINDINGS: Surgical changes and devices: Lower cervical spine fixation hardware. Lungs and pleura: Persistent left basilar airspace opacity not significantly changed from prior examination. Right lung is clear. Mediastinum: Mediastinal contours are normal. Heart size is normal. Bones and chest wall: No suspicious bony abnormalities. Soft tissues appear unremarkable. IMPRESSION: Left posterior basilar consolidation not significantly changed from the most recent chest radiograph. Continued radiographic surveillance to resolution is recommended. Dictated by: Mika Mcclain RRA Interpreted: Yana Galvan MD on 10/24/2016 at 11: 15 Transcribed by: BRENNA on 10/24/2016 at 11:17 Assessment & Plan Mr. Narayanan is an 86-year-old male with a history of hypertension, seizures, stroke , and recent pneumonia in May 2016. He presented with a 3-4 days history of productive cough, dyspnea on exertion, chest pain, fever and chills. Admitted for sepsis secondary to community acquired pneumonia and hyponatremia. Hospital day #2. Streptococcal/viral pneumonia, acute. Present on admission. Active. -Resp PCR positive for Rhinovirus. Positive streptococcal urine antigen -Procalcitonin trended up, 0.24. WBC trended down, 13.4 -Continue IV penicillin G (received ceftriaxone/azithromycin on admission changed on 10/22) -Procalcitonin in the morning -Encourage incentive spirometry Hypertension, chronic. Present on admission. Active. -Patient's on amlodipine and losartan as an outpatient. SBP 181 at presentation. -Continue home medications. -Labetalol 20 mg IV for blood pressure over 180 Hyponatremia, acute. Present admission. Improving. -Likely secondary to dehydration/poor oral intake. Patient clinically appeared hypovolemic on admission. -Received 3L NS for sepsis and sodium slowly improving. Most recent 133. -Repeat BMP in morning Anion gap metabolic acidosis, acute. Present on admission. Active. -Likely secondary to sepsis presentation. Anion gap of 16 -Lactic acid normalized -Repeat CMP in the morning -Treat underlying infection Normocytic normochromic anemia. Present on admission. Active. -Patient with history of anemia and Hb of 10.4. -Supplemental iron. Hyperglycemia, acute. Present on admission. Active. -Glucose of 161 without diagnosis of diabetes -Check HbA1c -Continue correctional insulin. Sepsis, acute. Present on admission. Resolved. -Likely secondary to pneumonia. Met criteria with: leukocytosis of 17.7, fever 39, respirations of 24 -Lactic acid normalized Chest pain, acute. Present admission. Resolved -Likely pleuritic chest pain secondary to pneumonia. ACS less likely as troponin neg x2, EKG w/no acute ischemic changes. Other Chronic conditions. Present on admission. Presumed stable: -Unspecified seizure disorder- continue home Keppra. -History of CVA- continue home Peridex. Disposition: Patient will likely discharge home in 1-2 days. Continue IV penicillin and IV fluids for now. Pain Evaluation: Adequate Pain Control VTE Prophylaxis: Sub-Q Heparin (Unfractionated) Resuscitation Status: CPR: Attempt Resuscitation RentonAndry MD October 24, 2016 23:07
[2016-10-25] VITALS (7 sets, daily range): BP systolic 107–178; BP diastolic 56–83; PULSE 52–81; RESP 16–17; O2SAT 92–94
[2016-10-25] MEDS: PENICILLIN K IV SCH ×4 (00:07→17:50)
[2016-10-25] MEDS: DEXTROSE 5% IV SCH ×4 (00:07→17:50)
[2016-10-25] MEDS: Sodium Chloride LOK Flush 10 mL Syringe IVFLUSH SCH ×3 (00:12→16:30)
[2016-10-25 06:37] LABS: BASOPHILS % (AUTO) 0.4 % (0-3); EOSINOPHILS % (AUTO) 3.4 % (0-5); MONOCYTES % (AUTO) 13.8 % (4-12); Mean Corpuscular Volume 90.3 fL (81-100); NEUTROPHILS % (AUTO) 64.2 % (40-74); Platelet Count 358 bil/L (150-400)
[2016-10-25] MEDS: Insulin LISPRO 300 Unit/3 mL Inj SUBQ SCH ×4 (08:00→21:34)
[2016-10-25] MEDS: levETIRAcetam 500 mg Tablet PO SCH ×2 (09:22→21:22)
[2016-10-25] MEDS: Dabigatran 150 mg Capsule PO SCH ×2 (09:23→21:21)
[2016-10-26] VITALS (8 sets, daily range): BP systolic 104–176; BP diastolic 67–92; PULSE 53–75; RESP 16–21; O2SAT 92–95
--- NOTE | 2016-10-26 00:02 | PCM.PNMED ---
Subjective Date of Service October 25, 2016 Subjective Patient does not feel well today in fact he has not eaten breakfast or lunch today and his states that that is extremely unusual. She states that even when he is sick he will eat as he does not want his food. Patient complains of feeling cold all day and is requesting extra blankets Exam Vital Signs Vital Sign - Last Date Time Temp Pulse Resp B/P Pulse Ox O2 Delivery O2 Flow Rate FiO2 10/25/16 20:23 36.9 79 17 178/72 94 Room Air 10/22/16 12:24 2.00 Intake and Output 10/24/16 10/24/16 10/25/16 Cumulative From/Thru 15:00 23:00 07:00 10/21/16 22:23 - 10/25/16 06:12 Intake Total 613 ml 874 ml 310 ml 7390 ml Output Total 275 ml 900 ml 450 ml 5475 ml Balance 338 ml -26 ml -140 ml 1915 ml Intake Oral 613 ml 622 ml 200 ml 4505 ml IV Total 252 ml 110 ml 2885 ml Output Urine Total 275 ml 900 ml 450 ml 5475 ml # Voids 4 3 13 # Bowel Movements 1 3 Exam General: Patient is complaining of feeling cold sitting up in a bedside chair. When I covered with them with a blanket he still requested a warm blanket. HEENT: Head is atraumatic and normocephalic. Eyes: Pupils are equally round and reactive to light and accommodation. Extraocular muscles are intact. Sclera are white, anicteric. Subconjunctival mucosa is pink. Ears and nose are unremarkable. Oropharynx: There is no mucosal lesions, there is no thrush, there is no pharyngitis. Neck: Is supple, there are no nodes, or masses or tenderness. Chest: Is significant for decreased breath sounds bilaterally with a few adventitious sounds. Heart: Rate, rhythm is regular. There is no murmur, rub or gallop. Abdomen: Good bowel sounds are present. Abdomen is soft, nontender, no organomegaly or masses were appreciated. Extremities: Are symmetrical and well perfused. There is no edema, there is no cellulitis, no rash. Neurologic: There are no focal neurological deficits. Cranial nerves II through XII are intact. There are no sensory or motor deficits. Psychiatric: Patients mood is calm and shows no sign of agitation. Genital: Deferred Rectal: Deferred Lab and Diagnostics Result Diagram: 10/25/16 0615 10/25/16 0615 Microbiology 10/22/16 Blood cultures- NO GROWTH at 24H 10/22/16 Sputum culture- NO POLYS SEEN, FEW EPITHELIAL CELLS, MODERATE MIXED NORMAL JOSSELINE 10/22/16 MRSA screen- negative 10/22/16 Respiratory PCR- positive for Rhinovirus X-Rays, CTs and MRIs PROCEDURE: X-RAY CHEST, TWO VIEWS ([id number]) INDICATIONS: Follow up for Pneumonia TECHNIQUE: 2 views of the chest were acquired. COMPARISON: [facility], CR, XR CHEST 1VW (PORTABLE), 10/21/2016, 22: 25. [facility], CR, XR CHEST 1VW, 10/22/2016, 0:18. [facility], CR, XR CHEST 2VW, 05/10/2016, 9:12. FINDINGS: Surgical changes and devices: Lower cervical spine fixation hardware. Lungs and pleura: Persistent left basilar airspace opacity not significantly changed from prior examination. Right lung is clear. Mediastinum: Mediastinal contours are normal. Heart size is normal. Bones and chest wall: No suspicious bony abnormalities. Soft tissues appear unremarkable. IMPRESSION: Left posterior basilar consolidation not significantly changed from the most recent chest radiograph. Continued radiographic surveillance to resolution is recommended. Dictated by: Mika Mcclain [facility] Interpreted: Yana Galvan MD on 10/24/2016 at 11: 15 Transcribed by: BRENNA on 10/24/2016 at 11:17 Approved by: Yana Galvan M.D. on 10/25/2016 at 15:56 Assessment & Plan Mr. Narayanan is an 86-year-old male with a history of hypertension, seizures, stroke , and recent pneumonia in May 2016. He presented with a 3-4 days history of productive cough, dyspnea on exertion, chest pain, fever and chills. Admitted for sepsis secondary to community acquired pneumonia and hyponatremia. Hospital day #2. Streptococcal/viral pneumonia, acute. Present on admission. Active. -Resp PCR positive for Rhinovirus. Positive streptococcal urine antigen -Procalcitonin trended up, 0.24. WBC trended down, 13.4 -As patient is feeling worse today on IV penicillin G (received ceftriaxone/ azithromycin on admission changed on 10/22) we will discontinue penicillin G and start IV Rocephin. Would recommend continue Rocephin until patient begins feeling well again prior to changing to oral antibiotics. -Procalcitonin in the morning -Encourage incentive spirometry Hypertension, chronic. Present on admission. Active. -Patient's on amlodipine and losartan as an outpatient. SBP 181 at presentation. -Continue home medications. -Labetalol 20 mg IV for blood pressure over 180 Hyponatremia, acute. Present admission. Improving. -Likely secondary to dehydration/poor oral intake. Patient clinically appeared hypovolemic on admission. -Received 3L NS for sepsis and sodium slowly improving. Most recent 133. -Repeat BMP in morning Anion gap metabolic acidosis, acute. Present on admission. Active. -Likely secondary to sepsis presentation. Anion gap of 16 -Lactic acid normalized -Repeat CMP in the morning -Treat underlying infection Normocytic normochromic anemia. Present on admission. Active. -Patient with history of anemia and Hb of 10.4. -Supplemental iron. Hyperglycemia, acute. Present on admission. Active. -Glucose of 161 without diagnosis of diabetes -Check HbA1c -Continue correctional insulin. Sepsis, acute. Present on admission. Resolved. -Likely secondary to pneumonia. Met criteria with: leukocytosis of 17.7, fever 39, respirations of 24 -Lactic acid normalized Chest pain, acute. Present admission. Resolved -Likely pleuritic chest pain secondary to pneumonia. ACS less likely as troponin neg x2, EKG w/no acute ischemic changes. Other Chronic conditions. Present on admission. Presumed stable: -Unspecified seizure disorder- continue home Keppra. -History of CVA- continue home Peridex. Disposition: Patient will need to be here for a few more days to ensure improvement. Dr. Mendiola to follow in a.m. Pain Evaluation: Adequate Pain Control VTE Prophylaxis: Sub-Q Heparin (Unfractionated) Resuscitation Status: CPR: Attempt Resuscitation Schneider,Andry Guerra MD October 26, 2016 00:02
[2016-10-26] MEDS: cefTRIAXone Inj 2,000 MG in Dextrose 5% Minibag Plus 50 ML IV SCH (00:39)
[2016-10-26] MEDS: Sodium Chloride LOK Flush 10 mL Syringe IVFLUSH SCH ×3 (00:39→13:15)
[2016-10-26 06:19] LABS: Mean Corpuscular Hemoglobin 30.8 pg (27.0-35.0); Mean Corpuscular Volume 87.9 fL (81-100)
[2016-10-26 07:33] LABS: Magnesium 2.1 mg/dL (1.6-2.6)
[2016-10-26] MEDS ORDERED: LEVO750T9 PO (07:33)
[2016-10-26] MEDS: Insulin LISPRO 300 Unit/3 mL Inj SUBQ SCH ×4 (08:00→21:08)
[2016-10-26] MEDS: Dabigatran 150 mg Capsule PO SCH ×2 (09:32→21:09)
[2016-10-26] MEDS: levETIRAcetam 500 mg Tablet PO SCH ×2 (09:33→21:09)
--- NOTE | 2016-10-26 13:36 | PCM.PNMED ---
Subjective Date of Service October 26, 2016 Subjective pt felt much better than yesterday, stronger, but not at baseline, intermittent coughing, not much sputum, denied n/v/c/d, eating well this morning with good appetite, amlodipine 5mg given [id number] remained afebrile but WBC still 12s PCN was switched on Rocephin by [place] Exam Vital Signs Vital Sign - Last Date Time Temp Pulse Resp B/P Pulse Ox O2 Delivery O2 Flow Rate FiO2 10/26/16 10:01 36.3 75 16 144/70 94 Room Air 10/22/16 12:24 2.00 Intake and Output 10/25/16 10/25/16 10/26/16 Cumulative From/Thru 15:00 23:00 07:00 10/21/16 22:23 - 10/26/16 06:22 Intake Total 85 ml 976 ml 400 ml 8851 ml Output Total 500 ml 5975 ml Balance 85 ml 476 ml 400 ml 2876 ml Intake Oral 836 ml 400 ml 5741 ml IV Total 85 ml 140 ml 3110 ml Output Urine Total 500 ml 5975 ml # Voids 3 16 # Bowel Movements 1 4 Exam NAD, comfortably laying down on the bed no JVD, MMM, no LAD RRR, nl s1, s2 no mrg decrease BS mild crackles at left bases, no wheezing, S,ND,NT,normoactive BS+ warm, no edema, pulses 2/2 IVs and Medications Medications Reviewed: Medications were reviewed in detail Lab and Diagnostics Result Diagram: 10/26/16 0610 10/26/16 0610 Microbiology 10/22/16 Blood cultures- NO GROWTH at 24H 10/22/16 Sputum culture- NO POLYS SEEN, FEW EPITHELIAL CELLS, MODERATE MIXED NORMAL JOSSELINE 10/22/16 MRSA screen- negative 10/22/16 Respiratory PCR- positive for Rhinovirus X-Rays, CTs and MRIs PROCEDURE: X-RAY CHEST, TWO VIEWS ([id number]) INDICATIONS: Follow up for Pneumonia TECHNIQUE: 2 views of the chest were acquired. COMPARISON: [facility], CR, XR CHEST 1VW (PORTABLE), 10/21/2016, 22: 25. [facility], CR, XR CHEST 1VW, 10/22/2016, 0:18. [facility], CR, XR CHEST 2VW, 05/10/2016, 9:12. FINDINGS: Surgical changes and devices: Lower cervical spine fixation hardware. Lungs and pleura: Persistent left basilar airspace opacity not significantly changed from prior examination. Right lung is clear. Mediastinum: Mediastinal contours are normal. Heart size is normal. Bones and chest wall: No suspicious bony abnormalities. Soft tissues appear unremarkable. IMPRESSION: Left posterior basilar consolidation not significantly changed from the most recent chest radiograph. Continued radiographic surveillance to resolution is recommended. Dictated by: Mika Mcclain RRA Interpreted: Yana Galvan MD on 10/24/2016 at 11: 15 Transcribed by: BRENNA on 10/24/2016 at 11:17 Approved by: Yana Galvan M.D. on 10/25/2016 at 15:56 Assessment & Plan Mr. Narayanan is an 86-year-old male with a history of hypertension, seizures, stroke , and recent pneumonia in May 2016. He presented with a 3-4 days history of productive cough, dyspnea on exertion, chest pain, fever and chills. Admitted for sepsis secondary to community acquired pneumonia and hyponatremia. Hospital day #2. Streptococcal/viral pneumonia, acute. Present on admission. Active. Resp PCR positive for Rhinovirus. Positive streptococcal urine antigen -pt is clinically improving but still tenuous, Procalcitonin WBC trending down -s/p IV penicillin G (received ceftriaxone/azithromycin on admission changed on 10/22), switched to IV Rocephin 10/25, will continue one more day, likely switch to levaquin oral tomorrow upon d/c -Encourage incentive spirometry Hypertension, chronic. Present on admission. Active. -Patient's on amlodipine and losartan as an outpatient. SBP 181 at presentation. -Continue home medications. resume amlodipine -Labetalol 20 mg IV for blood pressure over 180 Hyponatremia, acute. Present admission. Likely secondary to dehydration/poor oral intake. Patient clinically appeared hypovolemic on admission. -Received 3L NS for sepsis, Na level stable, -Repeat BMP in morning Anion gap metabolic acidosis, acute. Present on admission. Active. -Likely secondary to sepsis presentation. Anion gap of 16 -Lactic acid normalized -Repeat CMP in the morning -Treat underlying infection Normocytic normochromic anemia. Present on admission. Active. -Patient with history of anemia and Hb of 10.4. -Supplemental iron. Hyperglycemia, acute. Present on admission. Active. -Glucose of 161 without diagnosis of diabetes -Check HbA1c -Continue correctional insulin. Sepsis, acute. Present on admission. Resolved. -Likely secondary to pneumonia. Met criteria with: leukocytosis of 17.7, fever 39, respirations of 24 -Lactic acid normalized Chest pain, acute. Present admission. Resolved -Likely pleuritic chest pain secondary to pneumonia. ACS less likely as troponin neg x2, EKG w/no acute ischemic changes. Other Chronic conditions. Present on admission. Presumed stable: -Unspecified seizure disorder- continue home Keppra. -History of CVA- continue home Peridex. Disposition: likely 1-2more days, home VTE Prophylaxis: Sub-Q Heparin (Unfractionated) Resuscitation Status: CPR: Attempt Resuscitation Time spent 35min Merlyn Mendiola MD October 26, 2016 13:36
[2016-10-27] MEDS: cefTRIAXone Inj 2,000 MG in Dextrose 5% Minibag Plus 50 ML IV SCH (00:34)
[2016-10-27] MEDS: Sodium Chloride LOK Flush 10 mL Syringe IVFLUSH SCH ×2 (00:35→08:41)
[2016-10-27 00:53] VITALS: BP 163/78; PULSE 54; RESP 20; O2SAT 93
[2016-10-27 05:26] VITALS: PULSE 69
[2016-10-27 05:45] VITALS: BP 164/68; PULSE 67; RESP 20; O2SAT 94
[2016-10-27 06:37] LABS: BASOPHILS % (AUTO) 0.1 % (0-3); MONOCYTES % (AUTO) 10.4 % (4-12); Mean Corpuscular Hemoglobin 31.2 pg (27.0-35.0); Mean Corpuscular Volume 86.3 fL (81-100); NEUTROPHILS % (AUTO) 75.3 % (40-74); Platelet Count 374 bil/L (150-400)
[2016-10-27 06:57] LABS: Phosphorus 3.8 mg/dL (2.5-4.9)
[2016-10-27] MEDS ORDERED: 0.9% Sodium Chloride 500 ML IV ONE (07:20)
[2016-10-27 08:00] VITALS: BP 167/77; PULSE 67; RESP 18; O2SAT 96
[2016-10-27] MEDS: levETIRAcetam 500 mg Tablet PO SCH (08:42)
[2016-10-27] MEDS: Dabigatran 150 mg Capsule PO SCH (08:42)
[2016-10-27] MEDS: Insulin LISPRO 300 Unit/3 mL Inj SUBQ SCH ×2 (08:44→12:00)
--- NOTE | 2016-10-27 10:22 | PCM.DIMED ---
Discharge Instructions Date of Service October 27, 2016 Dates of Hospitalization October 22, 2016 at 01:10 Discharge Diagnosis Discharge Diagnosis Streptococcal pneumonia Medication Instructions Additional med instructions Please take antibiotics Levaquin 9more days Diet Discharge Diet: No restrictions Activity Discharge Activity: No restrictions Call your provider Call your provider for: Shortness of breath, Chest pain Patient Instructions Patient Instructions You were hospitalized with pneumonia, treated appropriately with antibiotics. Your condition improved significantly. Please follow medicine instruction as above, follow up with your primary doctor in 2weeks Follow-up Provider: Roderick Rausch MD Follow-up with PCP in: 2 weeks Merlyn Mendiola MD October 27, 2016 10:20
--- NOTE | 2016-10-27 22:26 | PCM.DC.MED ---
Discharge Summary Date of Service October 27, 2016 Dates of Hospitalization Date of Hospital Admission October 22, 2016 at 01:10 Date of Discharge: October 27, 2016 Providers: Admitting Physician: Tera Amador MD Primary Care Physician: Roderick Rausch MD Attending Physician: Tera Amador MD Diagnosis at Time of Discharge Diagnosis at Time of Discharge acute dx sepsis secondary to Streptococcal pneumonia chronic dx Unspecified seizure disorder History of CVA. Normocytic normochromic anemia. HTN Procedures XRay, CTs & MRIs PROCEDURE: X-RAY CHEST, TWO VIEWS ([id number]) INDICATIONS: Follow up for Pneumonia TECHNIQUE: 2 views of the chest were acquired. COMPARISON: [facility], CR, XR CHEST 1VW (PORTABLE), 10/21/2016, 22: 25. [facility], CR, XR CHEST 1VW, 10/22/2016, 0:18. [facility], CR, XR CHEST 2VW, 05/10/2016, 9:12. FINDINGS: Surgical changes and devices: Lower cervical spine fixation hardware. Lungs and pleura: Persistent left basilar airspace opacity not significantly changed from prior examination. Right lung is clear. Mediastinum: Mediastinal contours are normal. Heart size is normal. Bones and chest wall: No suspicious bony abnormalities. Soft tissues appear unremarkable. IMPRESSION: Left posterior basilar consolidation not significantly changed from the most recent chest radiograph. Continued radiographic surveillance to resolution is recommended. Dictated by: Mika Mcclain [facility] Interpreted: Yana Galvan MD on 10/24/2016 at 11: 15 Transcribed by: BRENNA on 10/24/2016 at 11:17 Approved by: Yana Galvan M.D. on 10/25/2016 at 15:56 Brief History HPI obtained by on 10/22 86-year-old male with a history of hypertension, seizures, stroke, and recent history of pneumonia in May 2016 presents to the emergency department due to 3-4 days worth of cough with nonbloody sputum, dyspnea worse with exertion, chest pain, and fever with chills. Patient states that this came on gradually she developed cough with yellow sputum production and reported fevers. Patient states this gradually gotten worse and today he was having very severe chills and riders. Patient denies any recent contacts or hospital stays in the last 3 months. 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 His confirms this. Patient denies nausea and vomiting, diarrhea, or anorexia. He states his chest pain was worse with deep inspiration and without radiation, diaphoresis, lightheadedness or dizziness, but does state it was substernal. In the Emergency department the patient was febrile with a fever of 39. Blood pressure was 181/59 with pulse of 90 and respiratory rate of 24. Saturating 94 % on room air Leukocytosis of 17.7 and left shift with a mild anemia with a hemoglobin of 10.4. Patient was also hyponatremic with a sodium of 129, hypochloremic at 91, and hyperglycemic at 161. Procalcitonin was pending as was a lactic acid. Hospital Course Mr. Narayanan is an 86-year-old male with a history of hypertension, seizures, stroke , and recent pneumonia in May 2016. He presented with a 3-4 days history of productive cough, dyspnea on exertion, chest pain, fever and chills. Admitted for sepsis secondary to community acquired pneumonia and hyponatremia. Brief hospital course. acute dx patient was admitted with sepsis with SIRS+ secondary to streptococcal pneumonia (positive urine Ag), viral PCR was also positive for rhinovirus. patient was started ceftriaxone/azithromycin on admission, then IV penicillin G. However, clinically worsened, thus switched to IV Rocephin 10/25 which was continued for 2more days. Eventually patient was more clinically stable with minimal respiratory symptoms, plan was to start levaquin oral to finish 14days course. pt also noted to have hyponatremia likely due to GI fluid loss, remained asymptomatic, pt was encouraged enough hydration upon d/c. pt was able to ambulate, discharged to home without service. chronic dx Unspecified seizure disorder- continue home Keppra. History of CVA- continue home Peridex. Normocytic normochromic anemia. HTN,, continued home meds Exam Vital Signs (Last) Date Time Temp Pulse Resp B/P Pulse Ox O2 Delivery O2 Flow Rate FiO2 10/27/16 08:00 36.7 67 18 167/77 96 10/27/16 05:45 Room Air 10/22/16 12:24 2.00 Exam NAD, comfortably laying down on the bed no JVD, MMM, no LAD RRR, nl s1, s2 no mrg decrease BS mild crackles at left bases, no wheezing, S,ND,NT,normoactive BS+ warm, no edema, pulses 2/2 Test 10/21/16 23:00 10/22/16 01:15 10/22/16 05:00 10/22/16 11:30 Hemoglobin A1c 5.7% (4.8-5.6) Iron Level 17ug/dL (35-150) Total Iron Binding Capacity 219ug/dL (250-450) Percent Iron Saturation 8%sat (15-50) Unsaturated Iron Binding 202ug/dL Hold Macias Top Tube Received (Received) Urine Color Yellow (YELLOW) Urine Appearance Clear (CLEAR,HAZY) Urine pH 7.0 (5.0-8.0) Urine Specific [place] 1.013 (1.003-1.035) Urine Protein Tracemg/dL (NEG,TRACE) Urine Glucose (UA) Negativemg/dL (NEGATIVE) Urine Ketones Negativemg/dL (NEGATIVE) Urine Occult Blood Trace (NEGATIVE) Urine Nitrite Negative (NEGATIVE) Urine Bilirubin Negative (NEGATIVE) Urine Urobilinogen Normalmg/dL (NORMAL) Urine Leukocyte Esterase Negative (NEGATIVE) Urine RBC 0-2/hpf (0-2) Urine WBC 0-5/hpf (0-5) Urine Epithelial Cells Few/hpf (NONE-MOD) Urine Crystals None seen (NONE SEEN) Urine Bacteria None/hpf (NONE-FEW) Urine Hyaline Casts None/lpf (NONE) Urine Granular Casts None seen (NONE SEEN) Urine Waxy Casts None seen (NONE SEEN) Urine Red Blood Cell Casts None seen (NONE SEEN) Urine White Blood Cell Casts None seen (NONE SEEN) Urine Mucus None seen (None Seen) Urine Trichomonas None seen (NONE SEEN) Urine Yeast None (NONE SEEN) Urine Culture Reflexed Not indicated Urine Random Sodium 59mEq/L Lactic Acid Level 1.3mmol/L (0.4-2.0) Troponin T 0.010ug/L (0.0-0.011) Test 10/26/16 06:10 10/27/16 05:52 Erythrocyte Sedimentation Rate 66mm/hr (0-30) C-Reactive Protein 5.6mg/dL (0.0-0.5) Procalcitonin 0.10ng/mL (0.00-0.08) Thyroid Stimulating Hormone (TSH) 1.870uIU/mL (0.450-4.500) White Blood Count 16.0th/mm3 (3.8-10.1) Red Blood Count 3.72mil/mm3 (4.40-5.80) Hemoglobin 11.6g/dL (13.8-17.2) Hematocrit 32.1% (41.0-50.0) Mean Corpuscular Volume 86.3fL (81-100) Mean Corpuscular Hemoglobin 31.2pg (27.0-35.0) Mean Corpuscular Hemoglobin Concent 36.1% (32.0-37.0) Red Cell Distribution Width 12.5% (12.3-15.4) Platelet Count 374bil/L (150-400) Neutrophils (%) (Auto) 75.3% (40-74) Lymphocytes (%) (Auto) 12.8% (14-46) Monocytes (%) (Auto) 10.4% (4-12) Eosinophils (%) (Auto) 1.0% (0-5) Basophils (%) (Auto) 0.1% (0-3) Sodium Level 129mEq/L (134-144) Potassium Level 4.4mEq/L (3.5-5.2) Chloride Level 91mEq/L (97-108) Carbon Dioxide Level 21mmol/L (18-29) Blood Urea Nitrogen 13mg/dL (8-27) Creatinine 0.68mg/dL (0.76-1.27) Estimat Glomerular Filtration Rate 118mL/min (>59) Glucose Level 143mg/dL (60-99) Calcium Level 9.1mg/dL (8.5-10.1) Phosphorus Level 3.8mg/dL (2.5-4.9) Magnesium Level 2.0mg/dL (1.6-2.6) Total Bilirubin 0.2mg/dL (0.0-1.2) Aspartate Amino Transf (AST/SGOT) 15U/L (0-50) Alanine Aminotransferase (ALT/SGPT) 13U/L (0-44) Alkaline Phosphatase 88U/L (25-160) Total Protein 6.8g/dL (6.4-8.4) Albumin 3.5g/dL (3.4-5.0) Microbiology Results 10/22/16 Blood cultures- NO GROWTH at 24H 10/22/16 Sputum culture- NO POLYS SEEN, FEW EPITHELIAL CELLS, MODERATE MIXED NORMAL JOSSELINE 10/22/16 MRSA screen- negative 10/22/16 Respiratory PCR- positive for Rhinovirus Discharge Medications Discharge Medications Amlodipine (Amlodipine) 5 Mg Tablet 5 MG PO DAILY Prescribed by: MAXIMILIANO BLANCHARD MD Cholecalciferol (Vitamin D3) (Vitamin D3) 1,000 Unit Tab.chew 1,000 UNIT PO DAILY (Reported) Cyanocobalamin (Vitamin B-12) (Vitamin B-12) 1,000 Mcg Tablet 1,000 MCG PO DAILY (Reported) Dabigatran Etexilate Mesylate (Pradaxa) 150 Mg Capsule 150 MG PO BID Prescribed by: EMMETT HUSSEIN DO Ferrous Sulfate (Feosol) 325 Mg Tablet 325 MG PO DAILYWM Prescribed by: MAXIMILIANO BLANCHARD MD Finasteride (Finasteride) 5 Mg Tablet 5 MG PO DAILY Prescribed by: MAXIMILIANO BLANCHARD MD Gabapentin (Neurontin) 300 Mg Capsule 600 MG PO TID Prescribed by: MAXIMILIANO BLANCHARD MD Ketoconazole (Ketoconazole) 15 Gm Cream..g. 1 APPLIC TOPICAL DAILY (Reported) apply daily to affected areas Lactobacillus Acidophilus/Pect (Acidophilus-Pectin Capsule) 1 Each Capsule 1 EACH PO DAILY Prescribed by: MAXIMILIANO BLANCHARD MD Levetiracetam (Levetiracetam) 500 Mg Tablet 1,000 MG PO BID (Reported) Levofloxacin (Levaquin) 750 Mg Tablet 750 MG PO DAILY Prescribed by: MERLYN BERNSTEIN MD Losartan Potassium (Cozaar) 100 Mg Tablet 100 MG PO DAILY Prescribed by: MAXIMILIANO BLANCHARD MD Meloxicam (Meloxicam) 15 Mg Tablet 15 MG PO HS (Reported) Multivitamin (Once Daily) 1 Each Tablet 1 EACH PO DAILY (Reported) As needed Acetaminophen (Acetaminophen) 325 Mg Tablet 650 MG PO Q6 HR PRN PRN For Pain ( Reported) Albuterol Sulfate (Ventolin HFA Inhaler) 200 Puff/18 Gm Inhaler 2 PUFFS INHALATION QID PRN PRN For Shortness of Breath (Reported) Docusate Sodium (Colace) 100 Mg Capsule 100 MG PO DAILY PRN PRN For Constipation (Reported) Nitroglycerin SL (Nitrostat) 0.3 Mg Tab.subl 0.3 MG SL Q5MIN PRN PRN For Chest Pain (Reported) Additional med instructions Please take antibiotics Levaquin 9more days Followup Plan Disposition: home Discharge Diet: No restrictions Discharge Activity: No restrictions Patient Instructions You were hospitalized with pneumonia, treated appropriately with antibiotics. Your condition improved significantly. Please follow medicine instruction as above, follow up with your primary doctor in 2weeks Follow-up Provider: Roderick Rausch MD Follow-up with PCP in: 2 weeks Time spent 65min Merlyn Bernstein MD October 27, 2016 22:26
== END 2016-10-27 13:39 | disposition home or self-care (01) | DRG 871 ==
LOC: SED 22:21 → PCC 10-22 01:10 → MPC 10-24 00:04
PROVIDERS: ADMIT Hospitalist; ATTEND Hospitalist
DX: A41.9 Sepsis, unspecified organism (principal); J13 Pneumonia due to Streptococcus pneumoniae; E87.1 Hypo-osmolality and hyponatremia; E87.2 Acidosis; B97.89 Other viral agents as the cause of diseases classified elsewhere; I10 Essential (primary) hypertension; Z86.73 Personal history of transient ischemic attack (TIA), and cerebral infarction without residual deficits; Z87.891 Personal history of nicotine dependence; R07.9 Chest pain, unspecified; D64.9 Anemia, unspecified; G89.29 Other chronic pain; G40.909 Epilepsy, unspecified, not intractable, without status epilepticus; R73.9 Hyperglycemia, unspecified

== ENCOUNTER 2017-01-24 09:40 | Inpatient (IN) | payer MEDICARE, OTHER ==
[~2017-01-24] VITALS: Ht 165.1 cm; Wt 84.1 kg
[~2017-01-24 09:40] MED LIST changes: -KEN1C TOPICAL; +LEVO750T9 PO; -LVF250T PO
[2017-01-24 09:46] VITALS: BP 195/77; PULSE 64; RESP 14; O2SAT 96
--- NOTE | 2017-01-24 09:47 | ED.REPORT ---
HPI-Chest Pain 40 and Over Date of Service Jan 24, 2017 ED Provider: Dr. Caballero Pt is an 86 y/o male anticoagulated on Pradaxa w/ a hx of dementia, TIA, seizures, HTN, carotid stenosis, presenting to the ED via EMS due to an episode of unresponsiveness which occurred prior to arrival. The patient's noticed that he was unresponsive, cool, and diaphoretic, and therefore began CPR and called EMS. She never checked pulses. Upon medics arrival he had strong pulses and was asymptomatic and responsive. His heart rate was 40 bpm on the monitor quickly normalizing to the 60s before they could obtain an EKG. His says he has been coughing lately. He says he is asymptomatic at time of interview and denies MCDUFFIE, CP, SOB, fever, vomiting. He was admitted to [facility] for pneumonia late October 2016. History is limited due to dementia. His does not know much of his medical history. CODE STATUS: DNR Nursing Notes Stated Complaint: SLOW HEART RATE Chief Complaint: Dysrhythmia/Cardiac Nursing Notes Reviewed: Yes Allergies: Coded Allergies: No Known Allergies (Verified , 01/24/17) Scheduled Amlodipine (Amlodipine) 5 Mg Tablet 5 MG PO DAILY Aspirin (Aspirin) 81 Mg Tablet 81 MG PO DAILY Calcipotriene Cream (Calcipotriene Cream) 30 Appl/60 Gm Cream 1 APPLIC TOPICAL DAILY Cholecalciferol (Vitamin D3) (Vitamin D3) 1,000 Unit Tab.chew 1,000 UNIT PO DAILY Cyanocobalamin (Vitamin B-12) (Vitamin B-12) 1,000 Mcg Tablet 1,000 MCG PO DAILY Ferrous Sulfate (Feosol) 325 Mg Tablet 325 MG PO DAILYWM Finasteride (Finasteride) 5 Mg Tablet 5 MG PO DAILY Gabapentin (Neurontin) 300 Mg Capsule 600 MG PO TID Levetiracetam (Levetiracetam) 500 Mg Tablet 1,000 MG PO BID Losartan Potassium (Cozaar) 100 Mg Tablet 100 MG PO DAILY Multivitamin (Once Daily) 1 Each Tablet 1 EACH PO DAILY Scheduled PRN Acetaminophen (Acetaminophen) 325 Mg Tablet 650 MG PO Q6 HR PRN PRN For Pain Albuterol Sulfate (Ventolin HFA Inhaler) 200 Puff/18 Gm Inhaler 2 PUFFS INHALATION QID PRN PRN For Shortness of Breath Docusate Sodium (Colace) 100 Mg Capsule 100 MG PO DAILY PRN PRN For Constipation Nitroglycerin SL (Nitrostat) 0.3 Mg Tab.subl 0.3 MG SL Q5MIN PRN PRN For Chest Pain General Time Seen by MD: 09:46 Chief Complaint Other (unresponsive) Hx Obtained From: Patient, Spouse, EMS Arrived By: Ambulance Sudden in Onset?: No Onset Occurred: Just prior to arrival Symptom Duration: Since onset Severity: Current: No pain currently Severity: Maximum: No pain Past Medical History Past Medical History Dementia TIA Seizure Hypertension Anemia Carotid stenosis Cataracts ND - per Past Surgical History Cervical spine surgery x 2 Tonsillectomy, Appendectomy Family History Noncontributory Smoking History Former Smoker Social History Alcohol Use: Denies alcohol use Drug Use: Denies drug use Other Social History: Good social support, , Local resident Ambulatory Status Walker Review of Systems Constitutional: Denies: Chills, Fever Respiratory: Reports: Non-productive cough, Denies: Shortness of breath Cardiovascular: Denies: Chest pain GI: Denies: Abdominal pain, Nausea, Vomiting Neurologic: Reports: Change LOC, Syncope, Denies: Headache Complete sys rev & neg: except as marked. Physical Exam Initial Vital Signs Vital Signs (First) Date Time Temp Pulse Resp B/P Pulse Ox O2 Delivery O2 Flow Rate FiO2 01/24/17 09:46 36.2 64 14 195/77 96 Room Air Initial VS: Reviewed, Vital signs abnormal Head / Eyes: Atraumatic, Normocephalic ENT: Mucous membranes moist, Conjunctiva normal, No scleral icterus Neck: Supple, Full range of motion Extremities: Vascular intact, Neuro intact Psychiatric: Mood/affect normal, Behavior normal General/Constitutional: Awake, Alert, No acute distress, Cooperative, Not toxic appearing Somnolent but arousable Appears weak Respiratory / Chest: Breath sounds = bilat, No respiratory distress, No retractions, No stridor, No chest wall deformity Coarse breath sounds about the bases bilaterally Cardiovascular: Heart rate NL, Regular rhythm Mild holosystolic murmur over left upper sternal border Lower Extremity / Pelvis / MS: No deformity, Neurologic intact, Vascular intact Abrasions over right niocle Skin: Atraumatic, Warm, Dry, Intact Rash / Lesion Notes: Chronic desquamation of bilateral feet Neurologic: Speech NL, No motor deficits, No sensory deficits, CN II - XII intact, Cerebellar NL Demented at baseline Somnolent but arousable Appears weak Interpretation & Diagnostics Lab Results Interpretation Result Diagram: 01/24/17 0945 01/24/17 0945 Test 01/24/17 09:45 01/24/17 10:21 01/24/17 11:59 01/24/17 12:06 White Blood Count 7.3th/mm3 (3.8-10.1) Red Blood Count 4.21mil/mm3 (4.40-5.80) Hemoglobin 13.1g/dL (13.8-17.2) Hematocrit 37.9% (41.0-50.0) Mean Corpuscular Volume 90.0fL (81-100) Mean Corpuscular Hemoglobin 31.1pg (27.0-35.0) Mean Corpuscular Hemoglobin Concent 34.6% (32.0-37.0) Red Cell Distribution Width 13.7% (12.3-15.4) Platelet Count 257bil/L (150-400) Neutrophils (%) (Auto) 54.8% (40-74) Lymphocytes (%) (Auto) 30.6% (14-46) Monocytes (%) (Auto) 11.5% (4-12) Eosinophils (%) (Auto) 2.6% (0-5) Basophils (%) (Auto) 0.4% (0-3) Sodium Level 138mEq/L (134-144) Potassium Level 4.7mEq/L (3.5-5.2) Chloride Level 100mEq/L (97-108) Carbon Dioxide Level 22mmol/L (18-29) Blood Urea Nitrogen 14mg/dL (8-27) Creatinine 0.96mg/dL (0.76-1.27) Estimat Glomerular Filtration Rate 79mL/min (>59) Glucose Level 106mg/dL (60-99) Calcium Level 9.6mg/dL (8.5-10.1) Magnesium Level 2.1mg/dL (1.6-2.6) Total Bilirubin 0.3mg/dL (0.0-1.2) Aspartate Amino Transf (AST/SGOT) 30U/L (0-50) Alanine Aminotransferase (ALT/SGPT) 14U/L (0-44) Alkaline Phosphatase 77U/L (25-160) Total Protein 7.8g/dL (6.4-8.4) Albumin 4.2g/dL (3.4-5.0) Prothrombin Time 10.6sec (8.1-12.5) Prothromb Time International Ratio 0.99ratio Lactic Acid Level 1.3mmol/L (0.4-2.0) Pro-B-Type Natriuretic Peptide 275.9pg/mL (0-486) Lipase 33U/L (13-60) Urine Color Straw (YELLOW) Urine Appearance Hazy (CLEAR,HAZY) Urine pH 7.0 (5.0-8.0) Urine Specific [place] 1.005 (1.003-1.035) Urine Protein Negativemg/dL (NEG,TRACE) Urine Glucose (UA) Negativemg/dL (NEGATIVE) Urine Ketones Negativemg/dL (NEGATIVE) Urine Occult Blood Negative (NEGATIVE) Urine Nitrite Negative (NEGATIVE) Urine Bilirubin Negative (NEGATIVE) Urine Urobilinogen Normalmg/dL (NORMAL) Urine Leukocyte Esterase Negative (NEGATIVE) Urine RBC 0-2/hpf (0-2) Urine WBC 0-5/hpf (0-5) Urine Epithelial Cells Occasional/hpf (NONE-MOD) Urine Crystals None seen (NONE SEEN) Urine Bacteria None/hpf (NONE-FEW) Urine Hyaline Casts None/lpf (NONE) Urine Granular Casts None seen (NONE SEEN) Urine Waxy Casts None seen (NONE SEEN) Urine Red Blood Cell Casts None seen (NONE SEEN) Urine White Blood Cell Casts None seen (NONE SEEN) Urine Mucus None seen (None Seen) Urine Trichomonas None seen (NONE SEEN) Urine Yeast None (NONE SEEN) Urinalysis Comment None Urine Culture Reflexed Not indicated Troponin T 0.010ug/L (0.0-0.011) ECG Interpretation ECG Interpretation: Sinus rhythm rate 63 LBBB Similar to previous Time: 10:01 Interpreted by: ED physician Normal ECG Interpretation: No acute ischemic changes X-Ray Chest Interpretation Chest Xray Interpretation: IMPRESSION: Mild cardiomegaly with associated vascular congestion. No consolidating pneumonia. Dictated by: Sanjeev Panchal M.D. on 01/24/2017 at 9:36 Approved by: Sanjeev Panchal M.D. on 01/24/2017 at 9:37 View: Portable, 1 view Interpretation / Wet Read by: Interpret - Radiologist CT Head Interpretation IMPRESSION: No acute intracranial disease process. Dictated by: Ashley Hinton MD, PhD on 01/24/2017 at 11:25 Approved by: Ashley Hinton MD, PhD on 01/24/2017 at 11:28 Study: Head CT no contrast Interpretation / Wet Read by: Interpret - Radiologist Re-Eval/Medical Decision Med Decision/Clinical Course 86-year-old male presenting after a syncopal event earlier today. His family started CPR. On arrival by paramedics she was bradycardic in the 40s which resolved by the time they put him on the rhythm strip. Vital signs are stable here. On arrival he was lethargic though this resolved. His troponins are negative 2. His CT scan shows no abnormalities. Patient is DNR/DNI. He will be admitted for syncopal event and bradycardia. Source of Hx: Old records, EMS, Family Time of Eval: 13:11 Re-Evaluation/Progress Note: Pt rechecked. Discussed admission vs discharge. He would like to be admitted. Pt understands and agrees with plan for admission. All questions addressed. Consultation : Referral / Consult Name: NormanLizzette DO Consulted With: Hospitalist Call Returned at: 14:28 Knuckle Bender: Will see patient, Agrees with eval, Agrees with plan, Accepts admit Counseled Regarding: Diagnosis, Lab results, Need for admission Discharge & Departure Primary Impression: Altered mental status Altered mental status type: unspecified Qualified Code: R41.82 - Altered mental status, unspecified Additional Impressions: Bradycardia Episode of syncope Syncope type: unspecified Qualified Code: R55 - Syncope and collapse Disposition: ADMITTED TO HOSPITAL Discharge Condition All VS Reviewed: Yes Condition: Stable Referrals: Roderick Rausch MD (PCP) Scribe Attestation Portions of this note were transcribed by Landon Elkins. I, Dr. Caballero personally performed the history, physical exam and medical decision-making; I reviewed and confirmed the accuracy of the information in the transcribed note. copies to: Roderick Rausch MD, Ben M MD Jan 24, 2017 09:47 LANDON ELKINS Jan 24, 2017 09:55
[2017-01-24 10:03] LABS: BASOPHILS % (AUTO) 0.4 % (0-3); EOSINOPHILS % (AUTO) 2.6 % (0-5); MONOCYTES % (AUTO) 11.5 % (4-12); Mean Corpuscular Hemoglobin 31.1 pg (27.0-35.0); NEUTROPHILS % (AUTO) 54.8 % (40-74); Platelet Count 257 bil/L (150-400)
[2017-01-24] MEDS ORDERED: Ondansetron 2 mg/mL 2 mL Inj IVPUSH PRN ×3 (10:05→17:15)
[2017-01-24 10:15] LABS: TROPONIN T 0.01 ug/L (0.0-0.011)
[2017-01-24 10:26] LABS: Magnesium 2.1 mg/dL (1.6-2.6)
--- NOTE | 2017-01-24 10:39 | DRSVH ---
PROCEDURE: X-RAY CHEST ONE VIEW, PORTABLE ([id number]) INDICATIONS: Chest pain. TECHNIQUE: One view of the chest was acquired. COMPARISON: [facility], CR, XR CHEST 2VW, 12/07/2016, 10:47. FINDINGS: Surgical changes and devices: Postoperative changes of the lower cervical spine are present. Degener ative changes of the right shoulder and imaged spine are noted. Lungs and pleura: The pulmonary vasculature is slightly increased. There is no focal consolidation, effusion, or pneumothorax. Mediastinum: Mediastinal contours appear normal. The heart is mildly enlarged. There is aortic ath erosclerosis. Bones and chest wall: No suspicious bony lesions. Overlying soft tissues appear unremarkable. IMPRESSION: Mild cardiomegaly with associated vascular congestion. No consolidating pneumonia. Dictated by: Sanjeev Panchal M.D. on 01/24/2017 at 9:36 Approved by: Sanjeev Panchal M.D. on 01/24/2017 at 9:37
[2017-01-24 10:57] LABS: INR 0.99 ratio
[2017-01-24 11:17] VITALS: BP 106/109; PULSE 61; RESP 11; O2SAT 96
--- NOTE | 2017-01-24 11:29 | DRSVH ---
PROCEDURE: CT BRAIN WITHOUT CONTRAST ([id number]) INDICATIONS: Acute altered mental status TECHNIQUE: Noncontrast 4.5 mm thick angled axial sections acquired from the foramen magnum to the vertex, with c oronal reformats. COMPARISON: [facility], CT, BRAIN (TPA), 03/23/2015, 16:02. [facility], CT, BRAIN W/O CONTRAST, 03/16/2014, 14:55. [facility], CT, CT BRAIN WO CON, 09/15/2016, 10:1 6. FINDINGS: Image quality: Excellent. CSF spaces: Basal cisterns are patent. No extra-axial fluid collections. The ventricles are symmet mildred in size and shape. Brain: No intracranial bleeds or masses. There is cerebral volume loss for age, with resultant vent ricular and sulcal prominence. There are periventricular and deep white matter chronic small vessel ischemic changes. There is intracranial internal carotid artery atherosclerosis. Skull and face: Calvarium and visualized facial bones appear intact, without suspicious lesions. Sinuses: Visualized sinuses and mastoids are clear. IMPRESSION: No acute intracranial disease process. Dictated by: Ashley Hinton MD, PhD on 01/24/2017 at 11:25 Approved by: Ashley Hinton MD, PhD on 01/24/2017 at 11:28
[2017-01-24 11:53] VITALS: BP 155/70; PULSE 61; RESP 16; O2SAT 98
[2017-01-24 12:37] LABS: APPEARANCE,URINE HAZY (CLEAR,HAZY); COLOR,URINE STRAW (YELLOW); OCCULT BLOOD,URINE NEGATIVE (NEGATIVE); UROBILINOGEN,URINE NORMAL (NORMAL)
[2017-01-24] MEDS ORDERED: CALC60CR3 TOPICAL (13:42)
[2017-01-24] MEDS ORDERED: ASPI-973 PO (13:42)
[2017-01-24] MEDS ORDERED: Alum-Mag Hydrox-Simeth 30 mL Suspension PO PRN ×2 (14:40→17:15)
--- NOTE | 2017-01-24 14:48 | NUR ---
admit pt admitted from ED. pt denies pain/distress/SOB. pt is able to transfer self to [facility] bed. pt's feet are dry cracking, and have spots of old blood. pt's family states that he has ointment for feet. Addendum: 01/24/17 at 1458 by MOY GLOVER RN pt arrived with defibrillator pads on chest. per tele pt in SR 80's with IVCD
[2017-01-24 14:57] VITALS: BP 178/78
[2017-01-24 15:28] VITALS: PULSE 64
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
--- NOTE | 2017-01-24 17:12 | PCM.ADCARE ---
Advance Care Planning Note Plan: Date: 01/24/2017 Diagnoses: Hypertension Seizures Bradycardia Purpose of encounter: Goals of care Parties in attendance: The patient, his , Araceli Jolly (a medical student) Decisional capacity: Good Plan: The patient is aware of the current diagnosis and would like to be DO NOT RESUSCITATE/DO NOT INTUBATE. The patient and his understands that no chest compressions will be done and the patient will not be intubated. The patient and family understands that no form of CPR will be attempted and are in agreement with this. The patient does still want other measures performed such as IV fluids, antibiotics, and possible blood transfusions but does not want any form of CPR. CODE STATUS: DO NOT RESUSCITATE/DO NOT INTUBATE Time spent with advanced care planning: Greater than 16 minutes Lizzette Norman DO Jan 24, 2017 17:12
[2017-01-24] MEDS ORDERED: Polyethylene Glycol (PEG) 17 Gm Powder PO PRN (17:15)
[2017-01-24] MEDS ORDERED: Albuterol 2.5 mg/3 mL Inhalation Solution NEB PRN (17:24)
[2017-01-24] MEDS: levETIRAcetam 500 mg Tablet PO SCH (18:01)
--- NOTE | 2017-01-24 19:28 | DRSVH ---
PROCEDURE: US BILATERAL DUPLEX DOPPLER IMAGING OF THE CAROTIDS ([id number]) INDICATIONS: syncope TECHNIQUE: Color and pulse Doppler interrogation was performed of both carotid systems, with image documentation and velocity measurements. COMPARISON: None. FINDINGS: Stenosis calculations are based on SRU (Society of Radiologists in Ultrasound) criteria. Right side: Brachial blood pressure: Not measured secondary presence of intravenous line. Common carotid artery peak systolic velocity: 66 cm/sec. Internal carotid artery peak systolic velocity: 73 cm/sec. Internal carotid artery end diastolic velocity: 20 cm/sec. External carotid artery peak systolic velocity: 111 cm/sec. ICA/CCA peak systolic ratio: 1.1. Wright scale imaging description: Calcified plaque Percent internal carotid artery stenosis: Less than 50%. Vertebral artery: Flow direction is antegrade. Left side: Brachial blood pressure: 178/78 mm Hg. Common carotid artery peak systolic velocity: 84 cm/sec. Internal carotid artery peak systolic velocity: 74 cm/sec. Internal carotid artery end diastolic velocity: 10 cm/sec. External carotid artery peak systolic velocity: 84 cm/sec. ICA/CCA peak systolic ratio: 0.88. Wright scale imaging description: Calcified plaque Percent internal carotid artery stenosis: Less than 50%. Vertebral artery: Flow direction is antegrade. IMPRESSION: Less than 50% stenosis of the origins of the internal carotid arteries bilaterally. Dictated by: Ashley Hinton MD, PhD on 01/24/2017 at 19:24 Approved by: Ashley Hinton MD, PhD on 01/24/2017 at 19:26
[2017-01-24 21:28] VITALS: BP 158/67; PULSE 60; RESP 19; O2SAT 96
[2017-01-25] VITALS (10 sets, daily range): BP systolic 131–171; BP diastolic 56–83; PULSE 54–65; RESP 16–20; O2SAT 93–96
--- NOTE | 2017-01-25 02:55 | NUR ---
A-Fib/Chest pain Pt had an episode of A-fib/flutter HR 130's- 140's. Symptomatic with chest pain. 12 lead EKG ordered. No a-fib. Monitor naomie called that pt converted back to SR. notified and aware. Will administer morphine as ordered. Continuing to monitor.
[2017-01-25 05:43] LABS: BASOPHILS % (AUTO) 0.4 % (0-3); EOSINOPHILS % (AUTO) 4.1 % (0-5); MONOCYTES % (AUTO) 12.3 % (4-12); Mean Corpuscular Hemoglobin 30.8 pg (27.0-35.0); Mean Corpuscular Volume 90.4 fL (81-100); NEUTROPHILS % (AUTO) 55.7 % (40-74); Platelet Count 217 bil/L (150-400)
[2017-01-25 06:12] LABS: TROPONIN T 0.01 ug/L (0.0-0.011)
--- NOTE | 2017-01-25 09:35 | NUR ---
Social Work: Initial Assessment Data: See initial assessment. Patient is an 86 year old female who was admitted on 01/24/17 for AMS & Bradycardia per H&P. Patient's insurance is Medicare & [email or web address]. PCP is Dr. Roderick Rausch. EMR reviewed. SW met with patient and to discuss discharge planning. SW role explained. Patient is alert & oriented. Patient resides at home with in a 1 story home with 4 steps at entrance and a ramp. Patient is I with ADLs with the assistance of a rollator, canes, and FWW when needed. Patient states that he has a car but only drives short distances (MD appointments, store). states that DPOAs are their daughter Nola Morris and son Adrian Corley. states that patient does have a will in place. Patient and deny any usp care insurance or [place] benefits. states that patient received home health RN, PT, & OT when he had neck surgery and received services until 2 months ago. Patient nor can remember the name of agency. states that patient has received inpatient rehab at [facility] in the past. Upon discharge, transportation will be provided by family. SW provided a discharge planning checklist booklet to patient and encouraged to call with any questions. Phone number provided. Patient's family will assist with providing transportation at discharge. SW will continue to follow. Assessment: Home likely with no needs. Plan: Patient to likely discharge home when medically stable. No anticipated discharge needs. SW will continue to follow. PHAN Cam Addendum: 01/25/17 at 0951 by KAY FIGUEROA Amended: Links added. Addendum: 01/25/17 at 1016 by KAY FIGUEROA Correction: Patient is an 86 year old male.
--- NOTE | 2017-01-25 09:39 | NUR ---
Case Management: IVAN given and explained to pt and daughter. Natalya LALA RN Addendum: 01/25/17 at 0941 by NATALYA CHRISTIANSON CM Case Management: Disregard prior documentation. IVAN explained and given to pt. Natalya LALA RN
[2017-01-25] MEDS: levETIRAcetam 500 mg Tablet PO SCH ×2 (09:40→20:34)
--- NOTE | 2017-01-25 11:09 | NUR ---
Telemetry: Notified by [facility] of 3 beats of V-Tach @ approx 0830. notified. No new orders received at that time. Patient had two additional episodes of V-TAch, 3beats each. notified. Received orders for Metoprolol. Metoprolol administered, education provided. SR 70s at time of administration. Requested patient to call for assistance when getting up for safety. Patient agreed. Family at bedside. Addendum: 01/25/17 at 1714 by MICHELE BARRETT RN Notified by technology project manager that patient has had 4 additional episodes of 3beats of V-tach this afternoon. text paged.
--- NOTE | 2017-01-25 17:20 | DRSVH ---
[facility] [address] [place] [address] Echocardiogram Report Name: IFTIKHAR HUIZAR te: 01/25/2017 Height: 65 in Hospital Exam Location: [facility] Weight: 185 lb Gender: Male BSA: 1.9 m2 : 1930 Age: 86 yrs BP: 161/70 m mHg Reason For Study: Syncope Ordering Physician: Pito Slaughter Performed By: Lalo Goodman Referring Physician: LETICIA GOMEZ Interpretation Summary The ejection fraction is estimated to be 50-55%. Mild anteroseptal hypokinesis . There is mild aortic valve sclerosis. There is mild tricuspid regurgitation. The right ventricular systolic pressure is estimated at 31 mmHg assuming a right atrial pressure of 3 mm Hg. Procedure: A two-dimensional transthoracic echocardiogram with color flow and Doppler was performed. The study quality was technically adequate. Comparison is made with the echocardiogram of 04/30/16. The heart rate ranged between 51-61 bpm during the study. The patient had frequent PVCs during the exam. Left Ventricle: The left ventricle is normal in size. Left ventricular wall thickness is borderline increased. The ejection fraction is estimated to be 50-55%. Mild anteroseptal hypokinesis . Assessment of diastolic parameters indicates a relaxation abnormality of the left ventricle, consistent with normal filling pressures. Right Ventricle: The right ventricle grossly appears normal in size with probable normal systolic function. Atria: The left atrium grossly appears normal in size. The right atrium grossly appears normal in size. The interatrial septum is intact with no evidence for an atrial septal defect. Mitral Valve: The mitral valve leaflets are mildly calcified. There is mild mitral annular calcification. There is trace mitral regurgitation. Aortic Valve: The aortic valve is trileaflet. The aortic valve is slightly calcified. There is mild aortic valve sclerosis. There is no hemodynamically significant valvular aortic stenosis. There is trace aortic regurgitation. Tricuspid Valve: The tricuspid valve is normal. There is mild tricuspid regurgitation. The right ventricular systolic pressure is estimated at 31 mmHg assuming a right atrial pressure of 3 mm Hg. Pulmonic Valve: The pulmonic valve is not well visualized. Great Vessels: The aortic root is normal size. The ascending aorta is mildly enlarged. The pulmonary artery is not well visualized, but is probably normal size. The IVC is of normal diameter and collapses greater than 50% with a sniff. This suggests a low right atrial pressure of 3 mm Hg. Pericardium/ Pleura There is no pericardial effusion. There is no pleural effusion. MMode/2D Measurements & Calculations LVIDd LVOT diam LV garcia. diameter/BSA LV sys. diameter/BSA : 5.0 cm (cm/m^2): 2.6 (cm/m^2): 1.9 LVIDs Ao root diam : 3.6 cm FS: 28.8 % asc Aorta Diam IVSd : 1.cm LVPWd : 1.0cm Doppler Measurements & Calculations Ao V2 max MV E max myles MV E/A: 0.86 TR max myles : 126.8 cm/sec : 78.4 cm/sec Med Peak E' Myles : 264.2 cm/sec Ao max PG MV A max myles TR max P.9 mmHg : 6.4 mmHg : 91.1 cm/sec E/E' med: 20.7 Ao mean PG Lat Peak E' Myles LVOT Max Myles E/E' lat: 13.0 : 105.8 cm/sec E/e' average CHRISTY(I,D): 3.5 cm sev ratio MV dec time Ao V2 mean LV V1 max PG CHRISTY indexed to BSA : 0.20 sec : 87.5 cm/sec (cm^2/m^2): 1.8 Ao V2 VTI LV V1 VTI: 24.5 cm CHRISTY(V,D): 3.7 cm2 Electronically signed by: Harrison Krause on Reading Physician:01/25/2017 05:19 PM
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
--- NOTE | 2017-01-25 21:02 | DRSVH ---
PROCEDURE: MRI BRAIN WITHOUT CONTRAST ([id number]) INDICATIONS: syncope TECHNIQUE: Non-contrast axial T1 spin echo, axial T2 fast spin echo, sagittal and axial FLAIR, coronal T2 fast s pin echo, axial gradient echo, axial diffusion and ADC through the brain. COMPARISON: [facility], CT, CT BRAIN WO CON, 01/24/2017, 11:19. FINDINGS: Image quality: Excellent. CSF spaces: Ventricles appear symmetric in size and shape. Basal cisterns are patent. No extra-axi al fluid collections. Brain: No intracranial bleeds or mass effects. There is cerebral volume loss for age. There are pe riventricular and deep white matter chronic small vessel ischemic changes. Brainstem appears normal. Diffusion-weighted images show no acute ischemic insults. No chronic ischemic insults. Normal int ravascular flow voids are present. Skull and face: Calvarial bone marrow is normal in signal. Orbits are normal. Sinuses: Sinuses and mastoids are clear. IMPRESSION: Age related brain parenchymal atrophy, no trauma or other acute disease found. Dictated by: Jayro Man M.D. on 01/25/2017 at 21:00 Approved by: Jayro Man M.D. on 01/25/2017 at 21:01
[2017-01-26] VITALS (8 sets, daily range): BP systolic 135–155; BP diastolic 65–77; PULSE 51–86; RESP 18; O2SAT 93–95
[2017-01-26 05:39] LABS: BASOPHILS % (AUTO) 0.4 % (0-3); EOSINOPHILS % (AUTO) 5.1 % (0-5); MONOCYTES % (AUTO) 12.2 % (4-12); Mean Corpuscular Hemoglobin 31.5 pg (27.0-35.0); Mean Corpuscular Volume 89.7 fL (81-100); Platelet Count 222 bil/L (150-400)
[2017-01-26 06:11] LABS: TROPONIN T 0.01 ug/L (0.0-0.011)
[2017-01-26] MEDS: levETIRAcetam 500 mg Tablet PO SCH ×2 (08:38→20:54)
--- NOTE | 2017-01-26 08:43 | NUR ---
tired pt states that he is very tired and just wants to sleep. pt was difficult to arouse to take morning medications, but did eventually wake enough to take morning medications. This RN will page MD to let them know pt's current condition.
--- NOTE | 2017-01-26 09:29 | NUR ---
concerned is concerned about pt's condition. She states that the pt is telling her that he wants to go "home with his mom" who has . pt is not opening his eyes much but is responding with nods.
--- NOTE | 2017-01-26 10:24 | ABG ---
DateTimeAnalyzed 10:17:00 -_ pH ____7.392 - 7.350 7.450 pCO2 ___41.1__ -mmHg 35.0 45.0 pO2 ___63.9__ -mmHg 69.0 116 HCO3- ___24.4__ -mmol/L 22.0 26.0 ABE ____0.0__ -mmol/L -2.0 2.0 tHb ___12.8__ -g/dL 12.0 18.0 O2Hb ___89.9__ -% COHb ____1.2__ -% 0.0 1.5 MetHb ____0.9__ -% 0.4 1.5 sO2 ___91.8__ -% 25.0 FIO2 ___21.0__ -% Drawn By rs - Date/Time Notified____ 10:24:00 -_ Notified Whom Taleghani - B 760 -mmHg tO2 ___16.2__ -Vol% OrderingPhysicianInitials M T -
--- NOTE | 2017-01-26 12:57 | NUR ---
improved mentation pt is much more alert and able to stay awake during assessment. pt is able to drink, eat, and communicate without difficulty. This RN will continue to monitor.
--- NOTE | 2017-01-26 14:56 | NUR ---
Case Management: IMM given and explained to pt and . Earnestine LALA RN
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
[2017-01-27 00:29] VITALS: BP 152/75; PULSE 57; RESP 18; O2SAT 95
--- NOTE | 2017-01-27 02:57 | NUR ---
Mentation Pt alert and oriented. Able to get up to bathroom with minimal SBA. Forgetful at times. Reports waking up this morning and wondering why he was in the hospital. Denies pain or discomfort. No complaints of SOB or n/v. Call light within reach, using appropriately. SBA, bed alarm and nonslip socks on for safety. Pleasant and cooperative with care. Frequent rounding in place.
[2017-01-27 04:58] VITALS: BP 159/69; PULSE 57; RESP 18; O2SAT 96
[2017-01-27 06:14] VITALS: PULSE 60
[2017-01-27] MEDS: levETIRAcetam 500 mg Tablet PO SCH (08:23)
[2017-01-27 08:39] VITALS: BP 131/66; PULSE 61; RESP 16; O2SAT 94
[2017-01-27 09:03] VITALS: PULSE 53
--- NOTE | 2017-01-27 10:02 | PCM.DIMED ---
Discharge Instructions Date of Service Jan 27, 2017 Dates of Hospitalization Jan 24, 2017 at 14:45 Discharge Diagnosis Discharge Diagnosis # Suspected acute syncopal episode, present on admission. Unclear exact etiology but possible seizure vs transient ischemic attack (TIA) # Acute and transient Atrial fibrillation (A-fib), not present on admission. Resolved and back to sinus rhythm. # Hypertension, present on admission, chronic. Stable. # Chronic seizure disorder with possible acute episode on presentation as noted above. # Cognitive decline, Chronic, present on admission # Iron-deficiency anemia, present on admission, currently stable # Skin rash, present on admission, improving # Chronic neck and back pain, currently stable Diet Discharge Diet: Low fat, Low Sodium, Heart Healthy Activity Discharge Activity: No restrictions Call your provider Call your provider for: Fever or Chills, Shortness of breath, Bleeding, Chest pain, Weakness (unilateral) Patient Instructions Patient Instructions Seek immediate medical attention if any new or worsening signs or symptoms occur. Follow-up plan 1. Followup with primary care provider in 2-7 days 2. Followup with neurologist (Dr. Howard) in 1-2 weeks. Follow-up Provider: Roderick Rausch MD Provider: Ara Howard MD, Masoud Jan 27, 2017 10:02
--- NOTE | 2017-01-27 11:11 | NUR ---
Discharge Pt discharging to home via private vehicle with and sister. Pt A/O x 4, verbalized understanding of discharge and follow up instructions, personal belongings to include home meds (creams x 2).
--- NOTE | 2017-01-27 11:18 | NUR ---
Social Work: Discharge Data: EMR reviewed. Patient is on day 3 of hospitalization for AMS & bradycardia per H&P. Patient was discussed in morning rounds. Patient has been deemed medically stable by MD and cleared for discharge today. Patient will have no discharge needs. Transportation will be provided by family. Assessment: Patient will discharge home . Plan: Patient will discharge home today. Transportation will be provided by family. No discharge needs anticipated at this time. PHAN Cam
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
== END 2017-01-27 11:16 | disposition home or self-care (01) | DRG 101 ==
LOC: EDUNIT# 09:40 → EDBD 09:40 → SED 09:46 → MPC 14:45 → OBSVTOIN 14:45 → INTOOBSV 14:45 → MPC 15:04
PROVIDERS: ADMIT Neuromusculoskeletal Medicine & OMM; ATTEND Neuromusculoskeletal Medicine & OMM
DX: G40.909 Epilepsy, unspecified, not intractable, without status epilepticus (principal); G45.9 Transient cerebral ischemic attack, unspecified; I47.2 Ventricular tachycardia; I48.92 Unspecified atrial flutter; I49.8 Other specified cardiac arrhythmias; I48.91 Unspecified atrial fibrillation; R55 Syncope and collapse; I10 Essential (primary) hypertension; D50.9 Iron deficiency anemia, unspecified; Z87.891 Personal history of nicotine dependence; Z66 Do not resuscitate; G89.29 Other chronic pain

== ENCOUNTER 2017-02-23 08:00 | Observation (INO) | payer MEDICARE, OTHER ==
[~2017-02-23] VITALS: Ht 166.4 cm; Wt 81.2 kg
[2017-02-23] VITALS (7 sets, daily range): BP systolic 121–178; BP diastolic 55–73; PULSE 48–63; RESP 16–18; O2SAT 94–100
[~2017-02-23 08:00] MED LIST changes: +ASPI-973 PO; +CALC60CR3 TOPICAL; -DABI150C PO; -KTC2C15 TOPICAL; -LACT1CAP6 PO; -LEVO750T9 PO; -MELO-253 PO
--- NOTE | 2017-02-23 08:03 | ED.REPORT ---
HPI-Altered Mental Status Date of Service Feb 23, 2017 ED Provider: Mario Caballero MD An 86 year old male with a history of dementia, seizure disorder, CVA, hypertension, anemia, atrial fibrillation, ventricular tachycardia and NM is brought to the ED via EMS due to decreased responsiveness. The pt's prepared his medications as usual this morning, but found him unresponsive when she attempted to wake him. The pt is generally immediately responsive when she wakes him, but did not wake when she spoke to him and shook him. He was noted to be breathing shallowly. The pt became intermittently responsive and confused just before paramedics arrived, resulting in a total of approximately 30 to 45 minutes of unresponsiveness. He denies fever, vomiting, cough, headache or abdominal pain. The pt was seen for similar symptoms one month ago and admitted for TIA vs. seizure workup. The pt is on sedating medications but has not had any recent medication changes. He had been acting normally until this morning. The pt has an appointment with neurology on 03/13/2017 as follow up from his previous admission. Nursing Notes Stated Complaint: ALTERED MENTAL STATUS Nursing Notes Reviewed: Yes Allergies: Coded Allergies: No Known Allergies (Verified , 02/23/17) Scheduled Amlodipine (Amlodipine) 5 Mg Tablet 5 MG PO DAILY Aspirin (Aspirin) 81 Mg Tablet 81 MG PO DAILY Calcipotriene Cream (Calcipotriene Cream) 30 Appl/60 Gm Cream 1 APPLIC TOPICAL DAILY Cholecalciferol (Vitamin D3) (Vitamin D3) 1,000 Unit Tab.chew 1,000 UNIT PO DAILY Cyanocobalamin (Vitamin B-12) (Vitamin B-12) 1,000 Mcg Tablet 1,000 MCG PO DAILY Ferrous Sulfate (Feosol) 325 Mg Tablet 325 MG PO DAILYWM Finasteride (Finasteride) 5 Mg Tablet 5 MG PO DAILY Gabapentin (Neurontin) 300 Mg Capsule 600 MG PO TID Levetiracetam (Levetiracetam) 500 Mg Tablet 1,000 MG PO BID Losartan Potassium (Cozaar) 100 Mg Tablet 100 MG PO DAILY Losartan Potassium (Losartan Potassium) 100 Mg Tablet 100 MG PO DAILY Multivitamin (Once Daily) 1 Each Tablet 1 EACH PO DAILY Scheduled PRN Acetaminophen (Acetaminophen) 325 Mg Tablet 650 MG PO Q6 HR PRN PRN For Pain Albuterol Sulfate (Ventolin HFA Inhaler) 200 Puff/18 Gm Inhaler 2 PUFFS INHALATION QID PRN PRN For Shortness of Breath Docusate Sodium (Colace) 100 Mg Capsule 100 MG PO DAILY PRN PRN For Constipation Nitroglycerin SL (Nitrostat) 0.3 Mg Tab.subl 0.3 MG SL Q5MIN PRN PRN For Chest Pain Miscellaneous Medications Gabapentin (Gabapentin) 300 Mg Capsule Sertraline HCl (Sertraline) 25 Mg Tablet General Time Seen by MD: 08:02 Chief Complaint Decreased responsiveness Hx Obtained From: Patient, EMS Arrived By: Ambulance Sudden in Onset?: Yes Onset Occurred: 1 - 4 hours ago Recent Healthcare: Recent doctor visit, Recent hospitalization Similar Sx Previous: Yes Past Medical History Past Medical History Dementia TIA Seizure Hypertension Anemia Carotid stenosis Cataracts NM - per Ventricular tachycardia Atrial fibrillation Past Surgical History Cervical spine surgery x 2 Tonsillectomy, Appendectomy Family History Noncontributory Smoking History Former Smoker Social History Alcohol Use: Denies alcohol use Drug Use: Denies drug use Other Social History: Good social support, , Local resident Ambulatory Status Walker Review of Systems Review of Systems Note: decreased responsiveness Constitutional: Denies: Fever Respiratory: Denies: Non-productive cough, Shortness of breath Cardiovascular: Denies: Chest pain GI: Denies: Abdominal pain, Nausea, Vomiting Skin: Denies Rash Neurologic: Reports: Confusion, Denies: Headache Complete sys rev & neg: except as marked. Physical Exam Initial Vital Signs Vital Signs (First) Date Time Temp Pulse Resp B/P Pulse Ox O2 Delivery O2 Flow Rate FiO2 02/23/17 08:07 63 18 137/71 94 Room Air Initial VS: Reviewed General/Constitutional: Awake, Alert Head / Eyes: Atraumatic, Normocephalic, PERRL, EOMI Neck: Atraumatic, Supple, Full range of motion Respiratory / Chest: Atraumatic, Breath sounds NL, Breath sounds = bilat, No respiratory distress Cardiovascular: Heart rate NL, Regular rhythm, Heart sounds NL Neurologic: Oriented X3, Speech NL, No motor deficits, No sensory deficits, CN II - XII intact ENT: Atraumatic, Airway patent, Mucous membranes moist Abdomen: Atraumatic, Soft, Non-tender Back: Atraumatic, Full range of motion Skin: Atraumatic, Color NL, No rash, Warm, Dry Psychiatric: Affect NL, Mood NL Upper Extremity / MS: Atraumatic, Full range of motion Lower Extremity / Pelvis / MS: Atraumatic, Full range of motion Interpretation & Diagnostics Lab Results Interpretation Result Diagram: 02/23/17 0816 02/23/17 0816 Test 02/23/17 08:16 02/23/17 10:07 White Blood Count 8.8th/mm3 (3.8-10.1) Red Blood Count 4.20mil/mm3 (4.40-5.80) Hemoglobin 13.2g/dL (13.8-17.2) Hematocrit 38.1% (41.0-50.0) Mean Corpuscular Volume 90.7fL (81-100) Mean Corpuscular Hemoglobin 31.4pg (27.0-35.0) Mean Corpuscular Hemoglobin Concent 34.6% (32.0-37.0) Red Cell Distribution Width 13.1% (12.3-15.4) Platelet Count 223bil/L (150-400) Neutrophils (%) (Auto) 49.7% (40-74) Lymphocytes (%) (Auto) 34.1% (14-46) Monocytes (%) (Auto) 12.4% (4-12) Eosinophils (%) (Auto) 3.3% (0-5) Basophils (%) (Auto) 0.3% (0-3) Hold Purple Top Tube Received (Received) Hold Blue Top Tube Received (Received) Sodium Level 137mEq/L (134-144) Potassium Level 4.2mEq/L (3.5-5.2) Chloride Level 99mEq/L (97-108) Carbon Dioxide Level 22mmol/L (18-29) Blood Urea Nitrogen 19mg/dL (8-27) Creatinine 1.10mg/dL (0.76-1.27) Estimat Glomerular Filtration Rate 67mL/min (>59) Glucose Level 96mg/dL (60-99) Calcium Level 9.3mg/dL (8.5-10.1) Total Bilirubin 0.3mg/dL (0.0-1.2) Aspartate Amino Transf (AST/SGOT) 16U/L (0-50) Alanine Aminotransferase (ALT/SGPT) 10U/L (0-44) Alkaline Phosphatase 85U/L (25-160) Troponin T 0.010ug/L (0.0-0.011) Total Protein 7.4g/dL (6.4-8.4) Albumin 4.0g/dL (3.4-5.0) Hold [place] Top Tube Received (Received) Urine Color Straw (YELLOW) Urine Appearance Hazy (CLEAR,HAZY) Urine pH 7.0 (5.0-8.0) Urine Specific [place] 1.005 (1.003-1.035) Urine Protein Negativemg/dL (NEG,TRACE) Urine Glucose (UA) Negativemg/dL (NEGATIVE) Urine Ketones Negativemg/dL (NEGATIVE) Urine Occult Blood Negative (NEGATIVE) Urine Nitrite Negative (NEGATIVE) Urine Bilirubin Negative (NEGATIVE) Urine Urobilinogen Normalmg/dL (NORMAL) Urine Leukocyte Esterase Negative (NEGATIVE) Urine RBC 0-2/hpf (0-2) Urine WBC 0-5/hpf (0-5) Urine Epithelial Cells Occasional/hpf (NONE-MOD) Urine Crystals None seen (NONE SEEN) Urine Bacteria None/hpf (NONE-FEW) Urine Hyaline Casts None/lpf (NONE) Urine Granular Casts None seen (NONE SEEN) Urine Waxy Casts None seen (NONE SEEN) Urine Red Blood Cell Casts None seen (NONE SEEN) Urine White Blood Cell Casts None seen (NONE SEEN) Urine Mucus None seen (None Seen) Urine Trichomonas None seen (NONE SEEN) Urine Yeast None (NONE SEEN) Urinalysis Comment None Urine Culture Reflexed Not indicated ECG Interpretation ECG Interpretation: normal sinus rhythm with a rate of 59 LBBB PVCs Time: 08:58 Interpreted by: ED physician X-Ray Chest Interpretation Chest Xray Interpretation: IMPRESSION: No acute cardiopulmonary disease process. Dictated by: Ashley Hinton MD, PhD on 02/23/2017 at 8:12 Approved by: Ashley Hinton MD, PhD on 02/23/2017 at 8:15 Interpretation / Wet Read by: Interpret - Radiologist CT Head Interpretation IMPRESSION: No acute intracranial disease process. Dictated by: Ashley Hinton MD, PhD on 02/23/2017 at 8:04 Approved by: Ashley Hinton MD, PhD on 02/23/2017 at 8:09 Interpretation / Wet Read by: Interpret - Radiologist Re-Eval/Medical Decision Med Decision/Clinical Course 86-year-old male history of seizure disorder, CVA, atrial fibrillation presenting with altered mental status this morning. Per and [id number] she was unresponsive for quite some time responsive by the time medics arrived. [id number] is a former EMT said the patient was completely unresponsive. On arrival patient is back to his baseline. No neurological deficits. His workup here including labs and CT scan are unremarkable. His EKG with left bundle branch block which is unchanged from previous. Patient was admitted for similar one month ago and thought to be due to TIA versus seizure disorder. They deny witnessing any seizure activity today. He also had some episodes of V. tach and atrial fibrillation with RVR during that admission. I cannot rule out arrhythmia as the cause today. So cannot rule out TIA versus seizure. We will admit for altered mental status and monitoring. Source of Hx: Old records Re-Evaluation/Progress : Time of Eval: 09:40 Patient Status: Condition improved Re-Evaluation/Progress Note: Pt rechecked, who is alert and oriented. The diagnosis and plan for admission are discussed. The pt understands and agrees with the plan. All questions are addressed at this time. Consultation : Referral / Consult Name: Merlyn Mendiola MD Consulted With: Hospitalist Call Returned at: 10:17 Vice President Quality: Agrees with eval, Agrees with plan, Accepts admit Note: Spoke with Dr. Mendiola, hospitalist, regarding pt's case. Dr. Mendiola agrees with the evaluation and agrees to admit the pt. Counseled Regarding: Diagnosis, Lab results, Need for admission Patient Discharge & Departure Impression: Primary Impression: Altered mental status Altered mental status type: unspecified Qualified Code: R41.82 - Altered mental status, unspecified Disposition: ADMITTED TO HOSPITAL Discharge Condition All VS Reviewed: Yes Condition: Stable Referrals: Roderick Rausch MD (PCP) Scribe Attestation Portions of this note were transcribed by Simona Powell. I, Dr. Caballero personally performed the history, physical exam and medical decision-making; I reviewed and confirmed the accuracy of the information in the transcribed note. copies to: Roderick Rausch MD, Ben M MD Feb 23, 2017 08:03 SIMONA POWELL Feb 23, 2017 08:28
[2017-02-23 08:43] LABS: BASOPHILS % (AUTO) 0.3 % (0-3); EOSINOPHILS % (AUTO) 3.3 % (0-5); MONOCYTES % (AUTO) 12.4 % (4-12); Mean Corpuscular Hemoglobin 31.4 pg (27.0-35.0); Mean Corpuscular Volume 90.7 fL (81-100); NEUTROPHILS % (AUTO) 49.7 % (40-74); Platelet Count 223 bil/L (150-400)
[2017-02-23 08:54] LABS: TROPONIN T 0.01 ug/L (0.0-0.011)
--- NOTE | 2017-02-23 09:10 | DRSVH ---
PROCEDURE: CT BRAIN WITHOUT CONTRAST ([id number]) INDICATIONS: altered mental status TECHNIQUE: Noncontrast 4.5 mm thick angled axial sections acquired from the foramen magnum to the vertex, with c oronal reformats. COMPARISON: [facility], CT, CT BRAIN WO CON, 09/15/2016, 10:16. [facility], CT, BRAIN (TPA), 03/23/2015, 16:02. [facility], CT, BRAIN W/O CONTRAST, 03/16/2014, 14:5 5. [facility], MR, MR BRAIN WO CON, 01/25/2017, 19:37. FINDINGS: Image quality: Excellent. CSF spaces: Basal cisterns are patent. No extra-axial fluid collections. The ventricles are symmet mildred in size and shape. Brain: No intracranial bleeds or masses. There is cerebral volume loss for age, with resultant vent ricular and sulcal prominence. There are severe periventricular and deep white matter chronic small vessel ischemic changes. Physiologic calcifications noted in the globus pallidus bilaterally. There is intracranial internal carotid artery atherosclerosis. Skull and face: Calvarium and visualized facial bones appear intact, without suspicious lesions. Sinuses: Visualized sinuses and mastoids are clear. IMPRESSION: No acute intracranial disease process. Dictated by: Ashley Hinton MD, PhD on 02/23/2017 at 8:04 Approved by: Ashley Hinton MD, PhD on 02/23/2017 at 8:09
--- NOTE | 2017-02-23 09:16 | DRSVH ---
PROCEDURE: X-RAY CHEST ONE VIEW, PORTABLE ([id number]) INDICATIONS: altered mental status TECHNIQUE: One view of the chest was acquired. COMPARISON: [facility], CR, XR CHEST 2VW, 12/07/2016, 10:47. [facility], CR , XR CHEST 1VW (PORTABLE), 01/24/2017, 9:59. FINDINGS: Surgical changes and devices: Cervicothoracic spine fixation hardware. Lungs and pleura: No pleural effusions or pneumothorax. Lungs are clear. Mediastinum: Mediastinal contours appear normal. Heart size is enlarged, but stable compared to sanchez or examination. Bones and chest wall: No suspicious bony lesions. Overlying soft tissues appear unremarkable. IMPRESSION: No acute cardiopulmonary disease process. Dictated by: Ashley Hinton MD, PhD on 02/23/2017 at 8:12 Approved by: Ashley Hinton MD, PhD on 02/23/2017 at 8:15
[2017-02-23] MEDS ORDERED: Ondansetron 2 mg/mL 2 mL Inj IVPUSH PRN (10:20)
[2017-02-23 10:38] LABS: APPEARANCE,URINE HAZY (CLEAR,HAZY); COLOR,URINE STRAW (YELLOW); OCCULT BLOOD,URINE NEGATIVE (NEGATIVE); UROBILINOGEN,URINE NORMAL (NORMAL)
--- NOTE | 2017-02-23 10:44 | PCM.HPMED ---
Subjective Date of Service Feb 23, 2017 Primary Provider: Admitting Physician: Primary Care Physician: Roderick Rausch MD Attending Physician: Chief Complaint: Unresponsiveness History of Present Illness: 86-year-old male with seizure disorder on Keppra follows up , recent hospitalization in Jan with TIA vs seizure episode, hx of CVA, HTN, paroxysmal A. fib, mild cognitive dysfunction presented with episodes of unresponsiveness this morning. History was obtained by the patient and the previous provider as there was no family member at the bedside. Patient was usual state of health until this morning, probably patient said found him unresponsive, asked Dr. family member to check on him, still unresponsive therefore EMS was activated. When EMS arrived, patient was unresponsive, vitals were stable, no seizure-like activity was witnessed. Patient remember that he went a ball game yesterday, doing well with good appetite, eating well, went to bed. The last thing patient remembers is seen light in the ambulance. Patient stated that he has been in good health, All of his medications arranged by his , denied having fever, chills, travel, diarrhea, cough, sputum, nausea, vomiting, abdominal pain. Patient currently also taking night any episode of headache, dizziness, slurred speech, weakness on arms or legs. ED VS very stable GL725d, HR 63, 94% on RA, EKG showed LBBB(old), CTH, CXR, labs were all unremarkable Review of Systems: Pertinent positives as noted in history of present illness. All other systems were reviewed and are negative Allergies Coded Allergies: No Known Allergies (Verified , 02/23/17) Home Medications Scheduled Amlodipine (Amlodipine) 5 Mg Tablet 5 MG PO DAILY Aspirin (Aspirin) 81 Mg Tablet 81 MG PO DAILY Calcipotriene Cream (Calcipotriene Cream) 30 Appl/60 Gm Cream 1 APPLIC TOPICAL DAILY Cholecalciferol (Vitamin D3) (Vitamin D3) 1,000 Unit Tab.chew 1,000 UNIT PO DAILY Cyanocobalamin (Vitamin B-12) (Vitamin B-12) 1,000 Mcg Tablet 1,000 MCG PO DAILY Ferrous Sulfate (Feosol) 325 Mg Tablet 325 MG PO DAILYWM Finasteride (Finasteride) 5 Mg Tablet 5 MG PO DAILY Gabapentin (Neurontin) 300 Mg Capsule 600 MG PO TID Levetiracetam (Levetiracetam) 500 Mg Tablet 1,000 MG PO BID Losartan Potassium (Cozaar) 100 Mg Tablet 100 MG PO DAILY Multivitamin (Once Daily) 1 Each Tablet 1 EACH PO DAILY Scheduled PRN Acetaminophen (Acetaminophen) 325 Mg Tablet 650 MG PO Q6 HR PRN PRN For Pain Albuterol Sulfate (Ventolin HFA Inhaler) 200 Puff/18 Gm Inhaler 2 PUFFS INHALATION QID PRN PRN For Shortness of Breath Docusate Sodium (Colace) 100 Mg Capsule 100 MG PO DAILY PRN PRN For Constipation Nitroglycerin SL (Nitrostat) 0.3 Mg Tab.subl 0.3 MG SL Q5MIN PRN PRN For Chest Pain PMH PMHx: Hypertension Epilepsy Cognitive decline Iron-deficiency anemia Skin rash Chronic neck and back pain History of stroke History of recurrent pneumonia Past Surgical History Cervical spine surgery Tonsillectomy Appendectomy FHx: Father: at 61 yo, from respiratory problems (he smoked a lot) Mother: at 96 yo from Alzheimer's disease SocHx: Good social support, - [place], local resident, uses walker/cane Occupation: [employer] Tobacco history: Former smoker, smoked 1 pack per week for 8 years, quit 30+ years ago Alcohol use: Not currently - in past drank beer socially Drug use: Patient denies Social History Hx Alcohol Use: No Hx Substance Use: No Hx Tobacco Use: Yes (quit 20yrs ago) Smoking Status: Former Smoker Exam Vital Signs Vital Sign - Last Date Time Temp Pulse Resp B/P Pulse Ox O2 Delivery O2 Flow Rate FiO2 02/23/17 10:19 59 16 121/55 100 Room Air Exam NAD, comfortably laying down on the bed no JVD, MMM, no LAD RRR, nl s1, s2 no mrg CTAB, no w,c S,ND,NT,normoactive BS+ warm, no edema, pulses 2/2 Neuro:speech coherent, fluent, AAOx2-3 :"17" PERRLA, EOMI, symmetric face, no uvulae tongue deviation, able shrug shoulders equally able rotate neck equally on both sides FTN, dysdiadochokinesia intact, romberg negative, motor 5/5 throughout, sensory intact to dull touch Lab and Diagnostics Result Diagram: 02/23/1716 02/23/1716 Assessment & Plan 86-year-old male with seizure disorder on Keppra follows up at the [facility], recent hospitalization in Jan with TIA vs seizure episode, hx of CVA, HTN, paroxysmal A. fib, mild cognitive dysfunction presented with episodes of unresponsiveness this morning. Acute, active episode of LOC, POA, probable another seizure episode given seizure d/o vs cardiac origin, resolved prior to admission. No postictal confusion observed. labs/hx didn't suggest any etiologies for lowering seizure threshold, EKG is unremarkable. initial stroke w/u CTH neg. -telemetry for one day -neurocheck q2h-4h, if any focal deficit, will obtain MRI, if any seizure episode, will consider second AED -continue home AEDs, ordered Keppra level, -Of note, current presentation seemed very similar to most recent adm, if this is believed to recurrent episode of seizures, reoccur, will obtained EEG, neuro consult with Chronic, stable #proxysmal A. fib, noted on telemetry on last hospitalization in Jan, briefly on BB but stopped given bradycardia. monitor on telemetry, continue aspirin, consider adding BB if HR in not in target, # Hypertension, present on admission, Continue patient's home dose of BP meds. # Seizure disorder, as above, # Cognitive decline, chronic, pt seems at his baseline MS. # Iron-deficiency anemia, present on admission, currently stable, continue iron supplement # Chronic neck and back pain - secondary to being electrocuted in the past, continue patients home dose of gabapentin. Dispo: Patient is admitted under observation status with expectation that she will be discharged within 24-48 hours, diet:general dvt ppx:LMWH DNR/DNI Time spent 65min Merlyn Mendiola MD Feb 23, 2017 10:44
[2017-02-23] MEDS ORDERED: LOSA100T29 PO (10:45)
[2017-02-23] MEDS ORDERED: SERT25TA6 PO (10:45)
[2017-02-23] MEDS ORDERED: GABA-502 (10:45)
--- NOTE | 2017-02-23 12:43 | NUR ---
ADMIT Patient arrived to floor at 1115, able to slide from gurney to bed with minimal effort. Alert and oriented x3, states that he is "feeling a lot better" but that he has little memory of EMS and being transported to ED. No further neuro deficits assessed at this time, though patient reports some memory issues at baseline from previous CVA. Oriented to room, call light, MPC and hospital policy. Med rec completed by admit RN at bedside. Bed low and locked, call light in reach, care and frequent rounding ongoing.
[2017-02-23] MEDS ORDERED: NITROGLYCERIN 0.6 MG SL PRN (12:50)
--- NOTE | 2017-02-23 13:18 | NUR ---
spiritual care: pt request Visited with pt who was grateful for the final inspector visit. Oriented him to the presence of spiritual care. Inquired whether pt would like to have the Zoroastrian Eucharistic visitor come to his room this afternoon and he requested a visit. Put him on the list for the volunteer and offered a blessing before leaving the room. Spiritual care will continue to follow as needed.
[2017-02-23] MEDS: levETIRAcetam 500 mg Tablet PO SCH ×2 (15:07→20:15)
[2017-02-23] MEDS ORDERED: Albuterol 2.5 mg/3 mL Inhalation Solution NEB PRN (16:00)
[2017-02-24 01:20] VITALS: BP 145/61; PULSE 48; O2SAT 99
[2017-02-24 04:54] VITALS: BP 147/62; PULSE 50; RESP 18; O2SAT 97
[2017-02-24 06:24] VITALS: PULSE 56; PULSE 66
--- NOTE | 2017-02-24 06:43 | NUR ---
Mentation Has remained A/O all shift with mild forgetfulness regarding some of yesterdays events but otherwise cognition appears to be WNL this shift.
[2017-02-24 08:00] VITALS: PULSE 68; RESP 18; O2SAT 98
[2017-02-24] MEDS: levETIRAcetam 500 mg Tablet PO SCH (08:10)
[2017-02-24 08:58] VITALS: PULSE 70
[2017-02-24 09:25] LABS: TROPONIN T 0.01 ug/L (0.0-0.011)
[2017-02-24 09:48] VITALS: BP 119/60; PULSE 55; RESP 18; O2SAT 97
--- NOTE | 2017-02-24 12:15 | PCM.DIMED ---
Discharge Instructions Date of Service Feb 24, 2017 Dates of Hospitalization Feb 23, 2017 at 10:56 Discharge Diagnosis Discharge Diagnosis acute dx Acute encephalopathy, episode of LOC, unclear etiology probable seizure episode or cardiac origin. chronic dx #proxysmal A. fib, # Hypertension, # Seizure disorder, # Cognitive decline, # Iron-deficiency anemia # Chronic neck and back pain Diet Discharge Diet: No restrictions Activity Discharge Activity: No restrictions Call your provider Call your provider for: Weakness (unilateral), Other (loss of consciousness) Patient Instructions Patient Instructions You were hospitalized after episode of unresponsiveness, which was concern for seizure or possibley due to irregular heart rate. You were monitored closely overnight, episode didn't occur again. Please note that you have to compliant to medication, given this recurrent similar episode, please follow up with for further evaluation. Please continue all of your home medication especially, medications for seizure disorder Follow-up Provider: Ara Howard MD Follow-up with PCP in: 2 weeks Merlyn Mendiola MD Feb 24, 2017 12:15
--- NOTE | 2017-02-24 14:03 | DRSVH ---
[facility] [address] [place] [address] Echocardiogram Report Name: IFTIKHAR HUIZAR te: 02/24/2017 Height: 66 in Hospital Exam Location: [facility] Weight: 179 lb Gender: Male BSA: 1.9 m2 : 1930 Age: 86 yrs BP: 119/60 mmHg Reason For Study: NEW BRADYCARDIA Ordering Physician: Performed By: Feliz Casillas Referring Physician: Ritesh Rausch Interpretation Summary The left ventricle is normal in size. There is borderline concentric left ventricular hypertrophy. The ejection fraction is estimated to be 60-65%. The right ventricle is normal in size and function. There is no significant valvular heart disease. No other echocardiographic abnormalities seen. No clear etiology for the patients bradycardia noted on this exam. Compared to the prior echo report on 01/25/17, there is no significant change. Procedure: A two-dimensional transthoracic echocardiogram with color flow and Doppler was performed in limited views only. The study quality was technically adequate. Comparison is made with the echocardiogram of 01/25/17. The patient was in normal sinus rhythm during the exam. The patient had a bundle branch block rhythm during the exam. Left Ventricle: The left ventricle is normal in size. There is borderline concentric left ventricular hypertrophy. The ejection fraction is estimated to be 60-65%. Septal motion is consistent with conduction abnormality. Right Ventricle: The right ventricle is normal in size and function. Atria: Both atria are normal in size. The interatrial septum is intact with no evidence for an atrial septal defect. Mitral Valve: There is mild mitral annular calcification. There is no mitral regurgitation noted. Aortic Valve: The aortic valve is trileaflet. The aortic valve is mildly calcified. There is discrete nodular thickening of the non- coronary cusp. Leaflet mobility is minimally reduced. There is no aortic valve stenosis. Tricuspid Valve: The tricuspid valve is normal in structure and function. There is mild tricuspid regurgitation. The right ventricular systolic pressure is estimated at 30 mmHg assuming a right atrial pressure of 3 mm Hg. Pulmonic Valve: The pulmonic valve is not well seen, but is grossly normal. Great Vessels: The ascending aorta is normal in size. The IVC is of normal diameter and collapses greater than 50% with a sniff. This suggests a low right atrial pressure of 3 mm Hg. MMode/2D Measurements & Calculations LVIDd: 4.5 cm LVIDs: 2.4 cm LA A2 area: 13.2 cm FS: 46.7 % LA A4 area: 16.7 cm IVSd: 1.1 cm LA length (vol): 5.1 cm LVPWd: 1.0 cm LA vol: 36.3 ml LA vol index: 19.0 ml/m IVC diam: 1.6 cm RA long axis: 5.1 cm asc Aorta Diam: 3.3 cm RA area: 15.9 cm RA vol: 42.6 ml RA : 22.3 ml/m2 LV garcia. diameter/BSA (cm/m^2): 2.3 LV sys. diameter/BSA (cm/m^2): 1.3 Doppler Measurements & Calculations TR max pablo: 260.6 cm/sec TR max P.2 mmHg Reading Physician:02:02 PM
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
--- NOTE | 2017-02-24 15:52 | NUR ---
Social Work: Brief Note / Discharge / Multidisciplinary Rounds EMR reviewed. Patient is a 86 year old male who was admitted 02/23/17 for altered mental status per H&P. Patient's insurance is Medicare and [employer]. Patient's PCP is Roderick Rausch MD. Patient was discussed in morning rounds. No concerns were noted by staff or MD. Patient has been deemed medically stable by MD. MD has placed orders for patient to discharge home today. Transportation will be provided by spouse. SW was unable to complete initial assessment prior to discharge. Patient has no needs at time of discharge. Plan: Patient will discharge home today. Transportation will be provided by patient's spouse. Patient has no additional needs at this time. PHAN Cam
--- NOTE | 2017-02-24 15:56 | NUR ---
Discharge D/C to home with . D/C packet with f/u instructions, care notes discussed and provided. No further questions and comfortable with plan of care. Escorted off floor via w/c by CATHETER FINISHER [employer] INSPECTOR.
== END 2017-02-24 14:18 | disposition home or self-care (01) ==
LOC: SED 08:00 → MPC 10:56
PROVIDERS: ADMIT Internal Medicine; ATTEND Internal Medicine
DX: G93.40 Encephalopathy, unspecified (principal); R55 Syncope and collapse; G40.909 Epilepsy, unspecified, not intractable, without status epilepticus; Z86.73 Personal history of transient ischemic attack (TIA), and cerebral infarction without residual deficits; I10 Essential (primary) hypertension; Z87.891 Personal history of nicotine dependence; I48.0 Paroxysmal atrial fibrillation; Z79.82 Long term (current) use of aspirin; R41.81 Age-related cognitive decline; D50.9 Iron deficiency anemia, unspecified; M54.2 Cervicalgia; G89.29 Other chronic pain; W86.8XXS Exposure to other electric current, sequela
CPT/HCPCS: 36415; 70450; 71010; 80053; 80299; 81000; 84484; 85025; 93005; 94799; 96372; 97162; 99285; C8924; G0378; J1650

== ENCOUNTER 2017-02-25 06:43 | Inpatient (IN) | payer MEDICARE, OTHER ==
[~2017-02-25] VITALS: Ht 165.1 cm; Wt 84.1 kg
[2017-02-25] VITALS (8 sets, daily range): BP systolic 108–161; BP diastolic 60–80; PULSE 51–65; RESP 11–19; O2SAT 95–100
[~2017-02-25 06:43] MED LIST changes: -FINA5TAB9 PO; +LOSA100T29 PO; -LOSA100T3 PO; +SERT25TA6 PO
--- NOTE | 2017-02-25 06:58 | ED.REPORT ---
HPI-Trauma Minor / Fall Date of Service Feb 25, 2017 ED Provider: Aleksandar Izaguirre DO Pt is an 86 year old male with a hx of seizures, cognitive decline and hypotension who presents to the ED via EMS with concerns for a possible seizure and subsequent ground level fall. Pt was discharged from the hospital yesterday with Acute encephalopathy, episode of LOC, unclear etiology probable seizure episode or cardiac origin. He reports that he does not entirely remember the event, but was found with his pants around his ankles and hypotensive. He reports no injuries sustained, and has no complaints. He specifically denies any chest pain, shortness of breath, headache, confusion, neck pain or trauma to his extremities. Nursing Notes Stated Complaint: GROUND LEVEL FALL Chief Complaint: Multiple Trauma/Fall Nursing Notes Reviewed: Yes Allergies: Coded Allergies: No Known Allergies (Verified , 02/23/17) Scheduled Amlodipine (Amlodipine) 5 Mg Tablet 5 MG PO DAILY Aspirin (Aspirin) 81 Mg Tablet 81 MG PO DAILY Cholecalciferol (Vitamin D3) (Vitamin D3) 1,000 Unit Tab.chew 1,000 UNIT PO DAILY Cyanocobalamin (Vitamin B-12) (Vitamin B-12) 1,000 Mcg Tablet 1,000 MCG PO DAILY Ferrous Sulfate (Feosol) 325 Mg Tablet 325 MG PO DAILYWM Gabapentin (Neurontin) 300 Mg Capsule 600 MG PO TID Levetiracetam (Levetiracetam) 500 Mg Tablet 1,000 MG PO BID Losartan Potassium (Losartan Potassium) 100 Mg Tablet 100 MG PO DAILY Multivitamin (Once Daily) 1 Each Tablet 1 EACH PO DAILY Sertraline HCl (Sertraline) 25 Mg Tablet 25 MG PO DAILY Scheduled PRN Acetaminophen (Acetaminophen) 325 Mg Tablet 650 MG PO Q6 HR PRN PRN For Pain Albuterol Sulfate (Ventolin HFA Inhaler) 200 Puff/18 Gm Inhaler 2 PUFFS INHALATION QID PRN PRN For Shortness of Breath Calcipotriene Cream (Calcipotriene Cream) 30 Appl/60 Gm Cream 1 APPLIC TOPICAL DAILY PRN PRN . Docusate Sodium (Colace) 100 Mg Capsule 100 MG PO DAILY PRN PRN For Constipation Nitroglycerin SL (Nitrostat) 0.3 Mg Tab.subl 0.3 MG SL Q5MIN PRN PRN For Chest Pain General Time Seen by MD: 06:57 Transferred From: alf Chief Complaint Fall Hx Obtained From: Patient Arrived By: Ambulance Onset Occurred: Just prior to arrival Symptom Duration: Duration unknown Caused by: Accidental Severity: Current: No pain currently Severity: Maximum: No pain Similar Sx Previous: Yes Past Medical History Past Medical History Dementia TIA Seizure Hypertension Anemia Carotid stenosis Cataracts [place] - per Ventricular tachycardia Atrial fibrillation Past Surgical History Cervical spine surgery x 2 Tonsillectomy, Appendectomy Family History Noncontributory Smoking History Former Smoker Social History Alcohol Use: Denies alcohol use Drug Use: Denies drug use Other Social History: Good social support, , Local resident Ambulatory Status Walker Review of Systems Constitutional: Denies: Chills, Fever, Malaise, Weakness - generalized Respiratory: Denies: Non-productive cough, Shortness of breath, Wheezing Musculoskeletal: Denies: Back pain, Extremity pain, Neck pain Skin: Denies Diaphoresis Neurologic: Reports: Seizure, Denies: Change LOC, Dizziness, Headache, Syncope, Weakness Complete sys rev & neg: except as marked. Physical Exam Initial Vital Signs Vital Signs (First) Date Time Temp Pulse Resp B/P Pulse Ox O2 Delivery O2 Flow Rate FiO2 02/25/17 06:53 36.5 65 18 130/61 99 Nasal Cannula 2 Initial VS: Reviewed, Unavailable Head / Eyes: Atraumatic, Normocephalic, PERRL ENT: Mucous membranes moist, Conjunctiva normal, No scleral icterus Respiratory: Breath sounds normal, Clear to auscultation, No respiratory distress Cardiovascular: Regular rate & rhythm, Heart sounds normal, Intact distal pulses Abdomen / GI: Soft, Non-tender, No guarding, No rebound, No distention Extremities: Vascular intact, Neuro intact, No swelling, No tenderness Skin: Warm, Dry, No cyanosis Neurologic: Alert, Oriented, Nonfocal General/Constitutional: Awake, Alert, Well appearing, Well nourished, Cooperative GCS - 15 Neck: Atraumatic, Supple, No swelling, Non-tender Interpretation & Diagnostics Lab Results Interpretation Test 02/25/17 06:45 Re-Eval/Medical Decision Med Decision/Clinical Course Difficult to say what happened. According to EMS his heard him fall and he was found on the ground with his pants around his ankles so perhaps he tripped or was going to use the bathroom. Either way he is now awake and alert and without complaints. Complex medical history. Will check labs and ekg and discuss with family when they are here. No signs of head or neck injury so will forgo ct imaging at this time. Care signed out to Dr. Trevizo at 07:20. Source of Hx: Old records, EMS Counseled Regarding: Diagnosis, Lab results, Need for follow-up, When/why to return to ED Discharge & Departure Shift Change Sign-Out Patient Care Transferred: Yes Discussed Complaint(s): Yes Laboratory Evaluation: Ordered, not yet done Imaging Studies: Ordered, not yet done Procedures: Ordered, not yet done Response to Therapy: Improved Impression: Primary Impression: Fall Encounter type: initial encounter Qualified Code: W19.XXXA - Unspecified fall, initial encounter Disposition: Home Discharge Condition All VS Reviewed: Yes Condition: Stable Referrals: Roderick Rausch MD (PCP) Trista Attestation Portions of this note were transcribed by Keri James. I, Dr. Izaguirre, Dr. Trevizo personally performed the history, physical exam and medical decision- making; I reviewed and confirmed the accuracy of the information in the transcribed note. Signed by: Trista Taylor, 02/25/2017 [Time]. copies to: Roderick Rausch MD, Todd P DO Feb 25, 2017 06:58 NAEEM JAMES Feb 25, 2017 07:04
[2017-02-25 07:11] LABS: BASOPHILS % (AUTO) 0.3 % (0-3); EOSINOPHILS % (AUTO) 2.7 % (0-5); MONOCYTES % (AUTO) 10.1 % (4-12); Mean Corpuscular Hemoglobin 31.7 pg (27.0-35.0); Mean Corpuscular Volume 89.8 fL (81-100); Platelet Count 259 bil/L (150-400)
[2017-02-25 07:18] LABS: INR 0.95 ratio
[2017-02-25 07:30] LABS: TROPONIN T 0.01 ug/L (0.0-0.011)
[2017-02-25] MEDS ORDERED: 0.9% Sodium Chloride 500 ML IV ONE (09:05)
[2017-02-25 09:44] LABS: APPEARANCE,URINE CLEAR (CLEAR,HAZY); COLOR,URINE STRAW (YELLOW); PH,URINE 6.5 (5.0-8.0)
[2017-02-25 09:45] LABS: OCCULT BLOOD,URINE NEGATIVE (NEGATIVE); UROBILINOGEN,URINE NORMAL (NORMAL)
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
[2017-02-25] MEDS ORDERED: Ondansetron 2 mg/mL 2 mL Inj IVPUSH PRN (11:15)
[2017-02-25] MEDS ORDERED: Alum-Mag Hydrox-Simeth 30 mL Suspension PO PRN (11:15)
[2017-02-25] MEDS ORDERED: Polyethylene Glycol (PEG) 17 Gm Powder PO PRN (11:20)
--- NOTE | 2017-02-25 11:30 | NUR ---
Admit Patient admitted from ED. A&OX3. denies pain or discomfort.Patient was discharged yesterday and returned to ED c/o Syncope. NS solution started per MD order. Tele and SCD's placed per MD order. Lunch was ordered and oral fluid provided.Oriented to room, call light, and bed controls.
[2017-02-25] MEDS ORDERED: Albuterol 2.5 mg/3 mL Inhalation Solution NEB PRN (12:05)
[2017-02-25] MEDS: 0.9% Sodium Chloride 1,000 ML IV SCH ×2 (14:45→21:14)
[2017-02-25] MEDS: levETIRAcetam 500 mg Tablet PO SCH ×2 (14:59→20:46)
[2017-02-26] VITALS (8 sets, daily range): BP systolic 128–167; BP diastolic 58–68; PULSE 50–62; RESP 14–20; O2SAT 95–98
--- NOTE | 2017-02-26 04:21 | NUR ---
Mentation Pt. alert and oriented, respond appropriately, pleasant and cooperative, no seizure episodes this shift, denies MCDUFFIE or dizziness, Uses the BR for toileting with SBA, steady on feet, VSS afebrile, Continue with IVF, call light in reach at all times, hourly checks and all needs attended.
[2017-02-26] MEDS: 0.9% Sodium Chloride 1,000 ML IV SCH ×2 (08:49→18:33)
[2017-02-26] MEDS: levETIRAcetam 500 mg Tablet PO SCH ×2 (08:49→20:24)
--- NOTE | 2017-02-26 10:57 | NUR ---
Social Work-initial assessment/ readiness for discharge: Data:See initial assessment. Pt is a 78 y/o male who was admitted on 02/25/17 for seizure per H&P. Pt's insurance is [employer] and PCP is Roderick Rausch MD. EMR Reviewed. BUBBA met with pt, and extended family at bedside, SW role explained. Pt is alert and oriented x3. Pt resides at home with his in a single level home where he remains independent with ADLs. Pt does not drive and uses fww at baseline. Pt has history with HH, but he cannot remember the name of the company and pt has been to [facility] in the past. Pt has no nursing home care insurance or VA benefits. DPOA/ advanced directive has been completed, SW encouraged a copy to be brought in. Pt and family are concerned because pt has been in and out of the hospital multiple times. Family wonders about HH service. SW spoke with MD and he is agreeable. SW to await MD order for arranging HH services. Pt's family to provide transport home. SW provided pt with discharge planning checklist and encouraged pt to call with any questions,phone number provided on white board in room. SW will continue to follow. Assessment:Pt who would benefit from HH. Plan:Pt to discharge home when medically stable via POV. SW awaiting MD order for HH services. BUBBA will continue to follow. PHAN Rivero Addendum: 02/26/17 at 1109 by SERINA DENNISON SS Amended: Links added.
--- NOTE | 2017-02-26 13:06 | NUR ---
Case Management: LOVE given and explained to pt and . Earnestine LALARN
--- NOTE | 2017-02-26 14:23 | NUR ---
Social Work-readiness for discharge: Data:EMR Reviewed. Pt is on day 1 of hospitalization for seizure per H&P. Pt is likely medically stable tomorrow. order received for HH-RN and PT. SW met with pt and to discuss, HH choice list provided. Pt and are agreeable to HH with no agency preference. SW referred to the rotating calendar and made referral to [facility] for RN and PT, access given. F2F to be completed by . SW will continue to follow. Assessment:Pt who would benefit from HH. Plan:Pt to discharge home when medically stable via POV. Referral made to [facility] for RN and PT, access given. F2F to be completed by . BUBBA will continue to follow. PHAN Rivero
--- NOTE | 2017-02-26 15:09 | NUR ---
Dr Shore Called office at [phone] to inquire when he was coming to assess patient as family asking. Not got back to him. Awaiting consult.
--- NOTE | 2017-02-26 17:24 | PCM.PNMED ---
Subjective Date of Service Feb 26, 2017 Subjective Patient is feeling better today, no seizures activity noted. Patient is weak, fragile. He will probably need home health care. Neurology consult is pending. Exam Vital Signs Vital Sign - Last Date Time Temp Pulse Resp B/P Pulse Ox O2 Delivery O2 Flow Rate FiO2 02/26/17 12:40 36.7 50 20 157/65 95 Room Air 02/25/17 12:00 1.00 Intake and Output 02/25/17 02/25/17 02/26/17 Cumulative From/Thru 15:00 23:00 07:00 02/25/17 06:53 - 02/26/17 06:24 Intake Total 1375 ml 2632 ml 2038 ml 6045 ml Output Total 475 ml 3200 ml 900 ml 4575 ml Balance 900 ml -568 ml 1138 ml 1470 ml Intake Oral 375 ml 1920 ml 480 ml 2775 ml IV Total 1000 ml 712 ml 1558 ml 3270 ml Output Urine Total 475 ml 3200 ml 900 ml 4575 ml # Voids 1 1 # Bowel Movements 1 1 Exam GENERAL: Alert, not in distress, cooperative, weak HEAD: atraumatic, normocephalic, no bruises. EYES: ZA, EOMI, anicteric, able to fully open and close eyelids SKIN: Skin color normal, turgor normal. No visible rashes or lesions. EAR, NOSE, MOUTH, THROAT: Lips, oral mucosa, tongue gums, oropharynx are moist , pink, no lesions. Ears normal appearance, no lesions. NECK: no jugulovenous distention; supple ROM normal. RESPIRATORY: Lungs clear to auscultation. Good diaphragmatic excursion. CARDIAC: normal S1 and S2; no rubs, murmurs, or gallops; regular rate and rhythm ABDOMEN: Abdomen soft, non-tender. BS normal. No masses or organomegaly. MUSCULOSKELETAL: ROM full, muscles are not tender EXTREMITIES: no pitting edema in LE, no new deformities or skin discoloration. NEURO: Alert, oriented X 3, Cranial nerves II-XII intact, Grossly normal motor function. PULSES: 2+ radial, 2+ carotid REVIEW OF SYSTEMS: GENERAL: no malaise, no fevers., SEE HPI HEENT: Negative for frequent or significant headaches All other reviewed and negative other than HPI. IVs and Medications Medications Reviewed: Medications were reviewed in detail Lab and Diagnostics Result Diagram: 9/24/17 0645 02/25/17 0645 Assessment & Plan 86-year-old male with seizure disorder on Keppra follows up at the [facility], recent hospitalization in Jan with TIA vs seizure episode, hx of CVA, HTN, paroxysmal A. fib, mild cognitive dysfunction presented to ED with episodes of unresponsiveness/confusion, ?seizures today. Patient was discharge from the hospital yesterday in stable condition(he was admitted for similar reason). In ED he had mild leukocytosis . Neurology service was consulted by ED. Episode of LOC, probable another seizure episode - Stable - given seizure d/o vs cardiac origin. - recent CT head - chronic changes - neurologist Dr. Crawford was consulted. Plan - monitor on telemetry - seizure precautions - neurocheck q6h -continue home AEDs, Keppra level, pending - Neurology consult is pending Paroxysmal A. fib - stable - noted on telemetry on last hospitalization in Jan, - valentinenet was on BB, developed bradycardia, BB were d/nupur - Patient is not on anticoagulation secondary to history of frequent falls Plan - monitor on telemetry, continue aspirin for CVA prophylaxis Hypertension - Blood pressure is on the higher side - Resume losartan, monitor Cognitive decline - stable Iron-deficiency anemia, present on admission, - stable, - continue iron supplement Chronic neck and back pain - secondary to being electrocuted in the past - continue patients home dose of gabapentin. DVT PROPHYLAXIS: Sequential compression devices Code status: I discussed with the patient code status, we talked in details about intubation, chest compressions, defibrillations, chemical code. All questions answered. Patient verbalized understanding. Patient would like to be DO NOT RESUSCITATE DO NOT INTUBATE. Patient declined intubation, chest compressions, defibrillations and other electrical shocks, chemical code. Family respected his decision. Disposition: discharge after patient improves. Plan of care discussed with treatment team, Labs, radiology tests, Tele and recent ECG reviewed. Plan of care, available alternatives were discussed and reviewed with patient/ family. All questions answered. Patient/family verbalized understanding, approved and agreed to plan of care. VTE Mechanical Devices: Venous Foot Pump Xiang Toro MD Feb 26, 2017 17:24
--- NOTE | 2017-02-26 18:04 | NUR ---
Mobility/mentation Pt up to BR numerous times today with SBA/FWW. Tolerated well. Steady on feet. Alert and oriented. Family visiting most of today. No altered mental status or confusion noted at any time today.
[2017-02-27] VITALS (10 sets, daily range): BP systolic 83–160; BP diastolic 56–69; PULSE 47–125; RESP 17–18; O2SAT 96–100
--- NOTE | 2017-02-27 00:17 | CONS ---
[address] [address] CONSULTATION REPORT PATIENT: IFTIKHAR HUIZAR : 1930 MR#: [id number] ADMIT: 02/25/2017 JOB ID: [id number] REQUESTING PROVIDER: Jaron Trevizo MD DATE OF SERVICE: 02/26/2017 CHIEF COMPLAINT: Multiple episodes of loss of consciousness. HISTORY OF PRESENTING ILLNESS: The patient is a very pleasant 86-year-old, right-handed man with multiple medical problems, including a history of localization-related seizure disorder, followed closely by my partner, Dr. Ara Howard, who has reportedly had four suspected seizures despite having a supratherapeutic Keppra level, who presented following another episode witnessed by his , Giana, who is at the bedside. Reportedly, there is a history of cognitive decline and hypotension, however, I did not note any low blood pressures in the medical record; instead, it appeared that his blood pressures were elevated. His reports that he did have seizures for many years, however, these 4 recent episodes were characterized by sudden loss of consciousness. The most recent episode was characterized by loss of consciousness when he was trying to go to the bathroom. His reports that this is different from his typical seizures. She reports that his seizures are characterized by sudden staring spells, but no shaking, tongue or lip biting, and no urinary incontinence. In this case, there was urinary incontinence reportedly. MEDICATIONS: Include: 1. Amlodipine. 2. Aspirin. 3. Vitamin D. 4. Vitamin B12. 5. Ferrous sulfate. 6. Gabapentin 600 mg p.o. t.i.d. 7. Levetiracetam 1000 mg p.o. b.i.d. 8. Losartan. 9. Multivitamin. 10. Sertraline. 11. P.r.n. medications include Tylenol, Ventolin, calcipotriene cream, docusate and nitroglycerin. ALLERGIES: He has no known drug allergies. PAST MEDICAL HISTORY: As noted above, is remarkable for: 1. Localization-related seizure disorder. 2. Paroxysmal atrial fibrillation. 3. History of ventricular tachycardia. 4. History of coronary artery disease and reported history of a myocardial infarction. 5. History of cataracts. 6. History of carotid stenosis. 7. History of anemia. 8. History of hypertension. 9. History of a transient ischemic attack. 10. Reported history of dementia. PAST SURGICAL HISTORY: 1. Status post two cervical spine surgeries. 2. Status post tonsillectomy. 3. Status post appendectomy. FAMILY HISTORY: There is no family history of any neurologic disorders. SOCIAL HISTORY: He lives with his . They live alone. His reports that their living situation is presently stable. No tobacco, alcohol or drugs. REVIEW OF SYSTEMS: A complete review of systems was performed and was remarkable for above-noted. MEDICATIONS HERE IN THE HOSPITAL INCLUDE:: 1. Tylenol p.r.n. 2. Aspirin 81 mg. 3. Vitamin D. 4. Ferrous sulfate. 5. Gabapentin 600 mg p.o. t.i.d. 6. Levetiracetam 1000 mg p.o. b.i.d. 7. Zofran p.r.n. 8. Sertraline 25 mg daily. 9. Multivitamin. 10. Valsartan 160 mg daily. His levetiracetam level was 30.6 on February 23, 2017. He also underwent a brain MRI on January 25, 2017, which did not reveal any acute stroke. There were no intracranial bleeds or mass effect. There was cerebral volume loss for age. There were periventricular and deep white matter chronic small vessel ischemic changes. Otherwise, unremarkable. He is on telemetry here. He reports no palpitations or shortness of breath surrounding this event. He reports no fevers and chills. His EKG was reviewed and did demonstrate evidence of a left bundle-branch block. PHYSICAL EXAMINATION: Temperature 36.7, pulse of 60, respiratory rate of 16, blood pressure 166/60, pulse oximetry 97% on room air. General: He is a well-developed, well-nourished man in no acute distress. Head: Normocephalic, atraumatic. Neck: Supple. No carotid bruits were auscultated. Negative Kernig. Negative Brudzinski. Chest: Clear to auscultation heart regular rate and rhythm. Abdomen: Soft, nondistended, nontender. Extremities: No cyanosis, clubbing, or edema. Neurologic examination: Mental status: He is awake, alert, oriented x3. Speech is clear and fluent with intact comprehension. There was no aphasia. Cranial nerves: Pupils equal, round, reactive to light. Extraocular movements were smooth and conjugate with no evidence of nystagmus. Face appeared symmetrical. Facial sensation was intact to light touch and temperature. Auditory sensation was intact to finger rub. Palatal elevation was symmetrical. Tongue was midline. There were no tongue excoriations or bite monson. Sternocleidomastoid and trapezii are 5/5 bilaterally. Funduscopic examination could not be performed due to myosis of his pupils. Motor: Normal tone and bulk. Muscle strength 5/5 throughout. Sensation intact to light touch and temperature. It is mildly reduced in the upper and lower extremities in a symmetrical fashion. Coordination: Patlru-px-[id number] was intact bilaterally with no evidence of dysmetria. Deep tendon reflexes were diminished throughout, they were absent at the Achilles bilaterally. Babinski was present on the right and the plantar was equivocal on the left. The plantar was extensor on the right and was equivocal on the left. Gait was deferred. IMPRESSION: 1. Localization-related seizure disorder. 2. Episodes of loss of consciousness. It is certainly possible that these episodes are in fact seizures. However, given the fact that he does have, if anything, a supratherapeutic Keppra level, my recommendation is to exclude any other potential etiology, such as syncope as the etiology secondary to a cardiac etiology for the event. RECOMMENDATIONS: 1. I do recommend obtaining a computed tomography angiogram of his head and neck to exclude the possibility of an intracranial or extracranial stenosis as the etiology of his events. This has not been performed recently. I also recommend a repeat electroencephalogram. It appears that his prior electroencephalogram most recently performed several years ago was unremarkable. Patients with seizure disorder may have normal electroencephalograms, however, I would like to repeat this study. 2. If above two studies are unremarkable, I do recommend that he obtain a Zio patch as an outpatient to exclude the possibility of a cardiac etiology for these episodes. He may also benefit from a tilt table test. I also recommend that he have orthostatic blood pressures performed standing, sitting and lying down, to exclude the possibility of an autonomic neuropathic hypotension as the etiology of these events. Although it is certainly possible that most recent event is ictal in nature, I do recommend excluding any other potential etiology for sudden loss of consciousness/syncope, especially given that his Keppra level was, if anything, supratherapeutic. I do recommend seizure and fall precautions. Thank you, again, Dr. Jaron Trevizo, for allowing me to participate in the care of your patient. Please feel free to contact me with any questions or concerns. MTDD
[2017-02-27] MEDS: 0.9% Sodium Chloride 1,000 ML IV SCH ×2 (02:21→13:14)
--- NOTE | 2017-02-27 06:14 | NUR ---
Neuros: Patient continues q6 hour NVC checks, within normal limits tonight. No observed complications noted.
[2017-02-27] MEDS: levETIRAcetam 500 mg Tablet PO SCH ×2 (08:49→20:34)
--- NOTE | 2017-02-27 08:50 | DRSVH ---
PROCEDURE: CT ANGIO HEAD AND NECK (P) INDICATIONS: TIA TECHNIQUE: Pre-contrast 4.5 mm thick sections acquired from the foramen magnum to the vertex. After the adminis tration of intravenous contrast, 1 mm thick sections acquired from the aortic arch through the [place] of [place]. Post-contrast 4.5 mm thick sections then re-acquired from the foramen magnum to the vert ex. 3-dimensional wthbiqp-gwsvyodmm-hmqpatyqby (MIP) and/or volume rendering reformats were acquired of the central intracranial vasculature and neck separately. For radiation dose reduction, the foll owing was used: automated exposure control, adjustment of mA and/or kV according to patient size. COMPARISON: [facility], CT, CT ANGIO BRAIN AND NECK, 03/25/2015, 11:08. FINDINGS: Image quality: Excellent. BRAIN: CSF spaces: Ventricles are normal in size and shape. Basal cisterns are patent. No extra-axial flu id collections. Brain: No midline shift. No intracranial bleeds or masses. Moderate diffuse cerebral volume loss. M oderate patchy low density within the periventricular and cortical white matter, as before. Wright-whit e matter interface appears intact. Skull and face: Calvarium and facial bones appear intact, without suspicious lesions. Orbits appear normal. Sinuses: Sinuses and mastoids are clear. HEAD CT ANGIOGRAPHY: Anterior circulation: Intracranial internal carotid arteries are normal in size and flow. The flow within the paired anterior cerebral arteries is normal and symmetric. The flow within the middle cer ebral arteries is normal and symmetric. The anterior communicating artery is seen. No aneurysms are seen. Posterior circulation: Visualized portions of the vertebral arteries demonstrate normal caliber. The left vertebral artery terminates in a posterior tear cerebellar artery, as before.. Near origi n of the right posterior cerebral artery. Flow within the posterior cerebral arteries is normal and s ymmetric. No aneurysms are seen. NECK CT ANGIOGRAPHY: Carotid system: The great vessels demonstrate a conventional anatomy as they arise from the aortic a rch. The origins of the common carotid arteries appear patent. The common carotid arteries demonstr ate normal caliber and courses. The bifurcation regions are both widely patent. The internal caroti d arteries demonstrate mild, roughly 10% origin stenoses bilaterally, and otherwise normal calibers a nd courses. Posterior circulation: The origins of the vertebral arteries both appear widely patent. Right verteb ral artery is dominant. Left vertebral artery terminates in a posterior inferior cerebellar artery, a s before. Soft tissues: Visualized neck soft tissues demonstrate no suspicious abnormalities. Bones: No suspicious bony lesions. Anterior fusion of C2-C6 has been performed, as before. Visualiz ed cervical spine appears normally aligned. IMPRESSION: 1. Volume loss and small vessel ischemic disease. 2. Mild, roughly 10% origin stenoses of the bilateral internal carotid arteries. 3. Negative evaluation of the intracranial vasculature. 4. Volume loss and small vessel ischemic disease. Dictated by: Froylan Choi M.D. on 02/27/2017 at 8:38 Approved by: Froylan Choi M.D. on 02/27/2017 at 8:48
--- NOTE | 2017-02-27 10:59 | NUR ---
Heart Rate. 1025 called by the monitor technician reporting HR in 110's with trigeminal/bigeminal PVC's. pt not feeling anything different. Up to BR 1045 called monitor technician cont HR in 110's with PVC's every 3rd or 4th beat. notified, EKG ordered. Pt in Afib with LBBB notified while here on floor. field contact technician notified.
--- NOTE | 2017-02-27 12:45 | NUR ---
Heart rate human resources technician phoned reporting HR up to the 130's BP 83/56 1252 BP 101/67 HR 125 Pt up to BR, reports feeling tired, looks pale. Sitting up eating lunch Addendum: 02/27/17 at 1314 by LEANN CRUZ RN MD notified. New orders Addendum: 02/27/17 at 1323 by LEANN CRUZ RN environmental monitoring technician reported SR 69, PVC's all but subsided. Pt currently getting IV EKG Laid back in bed after lunch
[2017-02-27] MEDS ORDERED: 0.9% Sodium Chloride 500 ML IV ONE (13:10)
--- NOTE | 2017-02-27 13:43 | NUR ---
spiritual care: vijay Visited with pt and offered Holy Communion from the [facility]. Pt was interested in communion. Offered a blessing and put him on the list for our Eucharistic volunteers. Spiritual care will continue to follow as needed.
--- NOTE | 2017-02-27 15:13 | PCM.PNMED ---
Subjective Date of Service Feb 27, 2017 Subjective Patinet is in bed., c/o weakness. HE had an episode of hypotension today with A- fib with RVR. This was treated with bed rest and IV NS bolus. Will hold BP meds. Exam Vital Signs Vital Sign - Last Date Time Temp Pulse Resp B/P Pulse Ox O2 Delivery O2 Flow Rate FiO2 02/27/17 13:25 68 130/68 96 Room Air 02/27/17 07:40 36.6 18 02/27/17 07:30 2.00 Intake and Output 02/26/17 02/26/17 02/27/17 Cumulative From/Thru 15:00 23:00 07:00 02/25/17 06:53 - 02/27/17 04:53 Intake Total 2238 ml 1192 ml 9475 ml Output Total 500 ml 2175 ml 7250 ml Balance 1738 ml -983 ml 2225 ml Intake Oral 1190 ml 3965 ml IV Total 1048 ml 1192 ml 5510 ml Output Urine Total 500 ml 2175 ml 7250 ml # Voids 3 4 # Bowel Movements 1 2 Exam GENERAL: Alert, not in distress, weak HEAD: atraumatic, normocephalic EYES: EOMI, anicteric, able to fully open and close eyelids SKIN: Skin color normal, turgor normal. No visible rashes EAR, NOSE, MOUTH, THROAT: Lips, oral mucosa, tongue are moist, pink, no lesions. Ears normal appearance, no lesions. NECK: no jugulovenous distention; supple ROM normal. RESPIRATORY: Lungs clear to auscultation. Good diaphragmatic excursion. CARDIAC: normal S1 and S2; no rubs, murmurs, or gallops; regular rhythm ABDOMEN: Abdomen soft, non-tender. No masses or organomegaly. MUSCULOSKELETAL: ROM full, muscles are not tender EXTREMITIES: no pitting edema in LE, no new deformities or skin discoloration. NEURO: Alert, oriented X 3, Cranial nerves II-XII intact, Grossly normal motor function. PULSES: 2+ radial, 2+ carotid REVIEW OF SYSTEMS: GENERAL: no malaise, no fevers., SEE HPI HEENT: Negative for frequent or significant headaches All other reviewed and negative other than HPI. IVs and Medications Medications Reviewed: Medications were reviewed in detail Lab and Diagnostics Result Diagram: 02/25/1745 02/25/17644 Assessment & Plan 86-year-old male with seizure disorder on Keppra follows up at the [facility], recent hospitalization in Jan with TIA vs seizure episode, hx of CVA, HTN, paroxysmal A. fib, mild cognitive dysfunction presented to ED with episodes of unresponsiveness/confusion, ?seizures today. Patient was discharge from the hospital1 day prior o this admission in stable condition(he was admitted for similar reason). In ED he had mild leukocytosis . Neurology service was consulted by ED. Dr. Crawford advised CT angio of the head and neck, EEG. Episode of LOC, probable another seizure episode - Stable - given seizure d/o vs cardiac origin. - recent CT head - chronic changes - neurologist Dr. Crawford was consulted Plan - monitor on telemetry - seizure precautions - neurocheck q6h -continue home AEDs, Keppra - CT head and neck angio Paroxysmal A. fib with RVR with hypotension - stable - noted on telemetry on last hospitalization in Jan, - valentinenet was on BB, developed bradycardia, BB were d/nupur - Patient is not on anticoagulation secondary to history of frequent falls Plan - monitor on telemetry, continue aspirin for CVA prophylaxis - IVF Hypertension - Blood pressure is low - hold losartan Cognitive decline - stable Iron-deficiency anemia, present on admission, - stable, - continue iron supplement Chronic neck and back pain - secondary to being electrocuted in the past - continue patients home dose of gabapentin. DVT PROPHYLAXIS: Sequential compression devices Code status: I discussed with the patient code status, we talked in details about intubation, chest compressions, defibrillations, chemical code. All questions answered. Patient verbalized understanding. Patient would like to be DO NOT RESUSCITATE DO NOT INTUBATE. Patient declined intubation, chest compressions, defibrillations and other electrical shocks, chemical code. Family respected his decision. Disposition: discharge after patient improves. Plan of care discussed with treatment team, Labs, radiology tests, Tele and recent ECG reviewed. Plan of care, available alternatives were discussed and reviewed with patient/ family. All questions answered. Patient/family verbalized understanding, approved and agreed to plan of care. Xiang Toro MD Feb 27, 2017 15:13
--- NOTE | 2017-02-27 16:17 | PROCED ---
[address] [address] EEG PATIENT: IFTIKHAR HUIZAR : 1930 MR#: [id number] ADMIT: 02/25/2017 JOB ID: [id number] DATE: 02/27/2017 HISTORY: The patient is an 86-year-old man with spells. TECHNICAL DESCRIPTION: This digital EEG was recorded using 25 scalp and ear, and two EKG electrodes. It was reviewed in bipolar and referential montages following reformatting in 10-20 [employer] Electrode [employer]acement System. During the recording, the patient was noted to be awake, drowsy and asleep. The background was composed of an 8-9 hertz, 20-50 microvolt, symmetrical and reactive posterior dominant rhythm that attenuated with eye opening. The rest of the background was composed of low voltage faster frequencies. There were no focal, lateralized or epileptiform discharges noted. There were no seizures seen. Sleep was characterized by the attenuation of the alpha rhythm, the appearance of symmetrical vertex waves, heralding stage 1 of sleep. This is followed by the development of symmetrical sleep spindles heralding stage 2 of sleep. No hyperventilation was performed. Photic stimulation from 1-30 hertz did not elicit any photic driving response. The EKG rhythm strip revealed a heart rate of 60-80 beats per minute with occasional premature ventricular complexes. IMPRESSION: This EEG performed in the awake, drowsy, and sleep states is within normal limits. Clinical correlation is advised.
--- NOTE | 2017-02-27 19:01 | CONS ---
[address] [address] CONSULTATION REPORT PATIENT: IFTIKHAR HUIZAR : 1930 MR#: [id number] ADMIT: 02/25/2017 JOB ID: [id number] DATE OF SERVICE: 02/27/2017 IDENTIFICATION: Dr. Cortez Otoole has asked that I consult on this 86-year-old, male with periods of unresponsiveness an documented atrial fibrillation with rapid ventricular response. HISTORY: The patient has a longstanding history of left bundle branch block and short periods of paroxysmal atrial fibrillation at least dating back to 2015. He also has a longstanding history of a seizure disorder and a stroke documented in 2014. He has been maintained on an anti-seizure medication but was admitted on January 24, 2017, after a witnessed collapse and unresponsiveness. The medics reported heart rates in the 40s, which increased up to the 60s by the time they were able to get an ECG, which showed sinus rhythm with his chronic left bundle branch block. He was admitted and evaluated and had an echocardiogram that showed an EF of 50% to 55% with a dyssynchronous contraction pattern and some mild tricuspid regurgitation but no significant valvular abnormality. It was felt that his episode was most likely a seizure related activity, although during that hospitalization, he was noted to have periods of asymptomatic paroxysmal atrial fibrillation for which he was started on metoprolol but with resultant sinus bradycardia that required him stopping. Because of his history of frequent falls, no anticoagulation was initiated and he was discharged on his chronic medications of amlodipine and losartan. He was readmitted with another episode of unresponsiveness on February 23, 2017. Again, medics were summoned and reported a heart rate of 63 with a blood pressure of 130 while he was unresponsive with a sinus rhythm with occasional PVCs. He was again admitted and had a repeat echocardiogram that was essentially unchanged with an EF of about 60% to 65%. Telemetry showed no arrhythmias and he was discharged on February 24, 2017, but then readmitted on February 25, 2017, after a near syncopal spell when he was on the commode and his heard him fall. Again, he was noted to have mild sinus bradycardia in the low 50s and was admitted in sinus rhythm with a left bundle branch block. He has been evaluated by Dr. Crawford, who was ordered a head and neck CT angiogram as well as an EEG with the latter apparently showing no concerning issues. His CT angiogram shows some volume loss and small vessel disease but only around 10% stenoses of both internal carotid arteries. Today, while at rest, he again was found to have the onset of atrial fibrillation, initially with heart rates of around 100, 110, but increasing up to 140, associated with hypotension with blood pressures in the 80s. He was treated with IV fluids and had spontaneous conversion back to sinus rhythm after around 2 hours. When I interviewed him today, he has had no sense of any palpitations although has some clear cognitive deficits. He denies any significant angina or dyspnea and walks around his house for 5-10 minutes without any clear change in his exercise capacity. He is occasionally fatigued, but there are no other specific symptoms. He has no recollection of his unresponsive spells to provide any cogent history. His states that he has fallen several times in the past six months. CARDIAC RISK FACTORS: Notable for a history of hypertension, but there is no history of diabetes. There is no reported hyperlipidemia. He smoked one pack per week for around five years but stopped 25 years ago. There is no family history of any premature coronary artery disease. PAST MEDICAL HISTORY: History of stroke and progressive mild dementia. He has had recurrent pneumonia and has had previous neck surgery. HOME MEDICATIONS: 1. Amlodipine 5 mg daily. 2. Losartan 100 mg daily. 3. Aspirin 81 mg daily. 4. Iron and vitamins. 5. Gabapentin 600 mg t.i.d. 6. Sertraline 25 mg daily. 7. Levetiracetam 1000 mg b.i.d. FAMILY HISTORY: UNREMARKABLE. SOCIAL HISTORY: The patient lives in [place] with his . He denies any alcohol consumption. REVIEW OF SYSTEMS: A complete review is performed and is notable for the absence of any fevers or chills, although he states he is chronically cold. Denies any recent weight change or vision change. No ENT problems. Denies any dyspnea. Has an occasional cough but no hemoptysis. No history of any peptic ulcer disease or GI blood loss. Denies any genitourinary complaints. Denies any recent CVA like symptoms although has had some progressive short-term memory issues. No history of any thyroid or bleeding disorder. His reports that he has some anxiety and depression. PHYSICAL EXAMINATION: Pleasant, elderly, male lying quite comfortably in bed. HR currently 68. BP 130/68. O2 saturation 96% on room air. Weight is 84.1 kg. Skin: Warm and dry. HEENT: EOMI. Without arcus. He has full set of dentures. Lungs: Clear bilaterally to auscultation and percussion. CV: Nonpalpable PMI with distant heart tones but no appreciable murmurs or gallops. JVP is 3-4 cm. Carotid and femoral pulses are 2+ bilaterally with a normal upstroke and no bruit. Dorsalis pedis and posterior tibial pulses are nonpalpable. Abdomen: Soft, nondistended, nontender, without any palpable masses or hepatosplenomegaly. Normal bowel tones are present without bruits. Extremities: Warm without any clubbing, cyanosis, or edema. Neuro: Moves all four extremities. Psych: Awake, alert, and oriented. LABORATORY: White count on admission was 13.9 with hematocrit of 40%. Sodium was 133 with a potassium of 4.3, with a BUN of 23 and a creatinine of 1.2. Glucose was 130. His A1c was 5.7 on his last admission. His last magnesium was 2.0 in January and his TSH was normal at 3.1. Troponins have remained normal. His last LDL was in 2014 and was 102. Chest x-ray: Clear lung kessler with a normal cardiac silhouette. ECG: Shows sinus rhythm with a left bundle branch block with occasional PVCs. His ECG from earlier today showed atrial fibrillation, again with some PVCs with a heart rate of 103. IMPRESSION: 1. Paroxysmal atrial fibrillation. The frequency and duration of this is unclear given the absence of any symptoms, although did have a rapid ventricular response today with associated hypotension and lightheadedness. Yet, I do not believe that his spells that have prompted admission reflect rapid atrial fibrillation given the vital signs that have been obtained at the time of these episodes in the absence of any documented atrial arrhythmias. Typically, beta blockade would be instituted to treat his rapid ventricular response to these paroxysms of atrial fibrillation but given his bradycardia down into the 40s and 50s, I think this would not be prudent in the absence of pacemaker therapy. It is conceivable that he could have more profound conduction disease in his left bundle branch block, although again, no documented pauses or profound bradycardia had been demonstrated. At this point, I would continue him off of beta blockade and continue to observe him. I will discuss his case with Dr. Tomlin, our locum tenens, who gathered his opinion in regards to proceeding with pacemaker therapy, but I think it would be important to understand that if we proceed with this, that this would be unlikely to impact his episodes of unresponsiveness that have been demonstrated. I would also recommend checking a magnesium level just to ensure that his electrolytes have been well repleted. 2. Periodic unresponsiveness. As above, it is not clear if this reflects an arrhythmia, although this cannot be entirely excluded. I would continue to monitor him on telemetry and I will discuss the case further with Dr. Tomlin. 3. Hypertension. Appears to be well controlled. 4. Mild dementia. 5. History of stroke. Given his paroxysmal atrial fibrillation, I would ordinarily recommend anticoagulation with warfarin or one of the newer anticoagulants. However, given his frequent falls, this is relatively contraindicated. If this can be stabilized, then I would advocate for institution of anticoagulation, whereas if he continues to have falls, then I think the risk of anticoagulation outweighs the benefit. 6. History of seizure disorder. Evaluation per Dr. Crawford. PLAN: 1. Continue to observe on telemetry. 2. I will consult with Dr. Tomlin for further consideration for pacemaker therapy. 3. Check a magnesium level. Ensure that it remains greater than 2.0. I will plan on following up with him tomorrow. I spent 1 hour and 52 minutes reviewing the patient's medical record, interviewing and examining the patient, answering his questions.
[2017-02-28] VITALS (11 sets, daily range): BP systolic 109–182; BP diastolic 64–78; PULSE 20–67; RESP 16–20; O2SAT 94–98
[2017-02-28] MEDS: 0.9% Sodium Chloride 1,000 ML IV SCH ×3 (03:46→19:28)
--- NOTE | 2017-02-28 06:20 | NUR ---
Hypertension: At 0515 noted hypertension, Blood pressure 182/68 pulse 59, patient taking in adequate fluids orally...took in 925ml tonight, urinated 1700ml out. IV intake of 1200ml. IV saline locked. Lungs clear, no signs of congestion, BP re-checked at 0545 175/77 pulse 54, 0618 BP re-check and was 162/75 pulse 48. MD notified, no new orders. Patient asymptomatic.
[2017-02-28 07:48] LABS: Magnesium 1.8 mg/dL (1.6-2.6)
[2017-02-28] MEDS: levETIRAcetam 500 mg Tablet PO SCH ×2 (08:37→20:35)
--- NOTE | 2017-02-28 08:56 | PROG NOTE ---
[address] [address] PROGRESS NOTE PATIENT: IFTIKHAR HUIZAR : 1930 MR#: [id number] ADMIT: 02/25/2017 JOB ID: [id number] DATE: 02/28/2017 SUBJECTIVE: The patient continues to feel well and has ambulated to the bathroom without any difficulty and specifically denies any lightheadedness or chest discomfort. He has had no dyspnea or palpitations. He denies any dysuria. Telemetry shows no further episodes of atrial fibrillation, although remains bradycardic down into the high 40s at night. PHYSICAL EXAMINATION: A comfortable appearing, elderly male, in no distress. HR 48, BP 162/76, O2 saturation 98% on room air. Lungs clear bilaterally without any rales or wheeze. CV slow regular rhythm with distant heart tones, but no appreciable murmurs or gallops. There is no obvious JVD. Abdomen soft, nondistended, nontender without any obvious hepatosplenomegaly. Extremities warm without any edema. LABORATORY: Potassium 4.1 with a BUN of 17 and a creatinine of 0.9. Magnesium was 1.8. IMPRESSION: 1. Paroxysmal atrial fibrillation with moderate tachybrady syndrome and periods of unresponsiveness. I had the opportunity to discuss the case this morning with Dr. Tomlin, our bicycle repairer. He believes that it is reasonable to proceed with pacemaker implantation in an effort to help control his rapid atrial fibrillation as it will allow us to institute beta blockade. However, we both agree that this very likely will not change his episodes of unresponsive to this that have prompted admission as the EMS reports an adequate heart rate and blood pressure during these episodes. I have explained this to the patient and he understands and is willing to proceed with pacemaker implantation. Dr. Tomlin is actually out of the office this week, but is willing to come in tomorrow for a pacemaker implantation, but is unable to do so today. Thus, we will keep the patient n.p.o. after midnight tonight. I will check a CBC to ensure that his leukocytosis has resolved, so there is no evidence for infection prior to pacemaker implantation. Once his pacemaker is implanted, we will have a better idea of his atrial fibrillation burden. If it is fairly extensive, anticoagulation can be readdressed. Following pacemaker implantation, I would institute of metoprolol therapy in an effort to help suppress any rapid heart rhythms. 2. Periodic unresponsiveness as above. 3. Hypertension. He remains moderately hypertensive, but I would continue with his current medications for now with the anticipation of initiating metoprolol following pacemaker implantation. 4. Mild dementia. He remained conversant. 5. History of seizure disorder. PLAN: 1. Continue current medications. I will supplement his magnesium slightly. 2. Dr. Tomlin will see the patient tomorrow morning in anticipation of proceeding with pacemaker implantation following that. 3. Check a CBC. If he does have a leukocytosis, an evaluation for possible infection will be needed prior to pacemaker insertion. 4. Initiate metoprolol therapy after pacemaker implantation. I spent 35 minutes reviewing the patient's medical record, discussing the case with Dr. Tomlin, examining the patient, and answering his questions.
--- NOTE | 2017-02-28 09:03 | NUR ---
Care note Provided written information regarding pacemaker to patient in Kosovan. Pt reports "I have been thinking about this a lot, maybe I should not have it done. I have lived a good life, when it is my time - let God take me. Offered reassurance, encouraged to speak to about it and at least read the handouts given to be informed." Addendum: 02/28/17 at 1107 by LEANN CRUZ RN came up and asked for instructions in hungarian as both of them unable to read bengali. She reports he has confusion at times When MD into see patient yesterday and asked if he had a , he looked around confused not sure of answer. Sat down with patient, and family Reviewed how pacemaker placed, function and answered all questions. Pt/family feel more comfortable and are ready to proceed tomorrow.
--- NOTE | 2017-02-28 11:10 | NUR ---
Pacemaker Notified nursing puttying and calking supervisor of pacemaker placement tomorrow and need for room on [facility], [facility].
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
[2017-02-28] MEDS: Sodium Chloride LOK Flush 10 mL Syringe IVFLUSH SCH (17:13)
[2017-02-28] MEDS: Heparin 5,000 Unit/mL Inj SUBQ SCH (20:36)
[2017-03-01] VITALS (18 sets, daily range): BP systolic 103–167; BP diastolic 58–86; PULSE 58–65; RESP 14–18; O2SAT 94–98
[2017-03-01] MEDS: Sodium Chloride LOK Flush 10 mL Syringe IVFLUSH SCH ×3 (00:34→17:19)
[2017-03-01] MEDS: 0.9% Sodium Chloride 1,000 ML IV SCH ×3 (05:24→15:14)
--- NOTE | 2017-03-01 05:33 | NUR ---
Unable to scan medications Computer scanners were down so unable to scam patient bracelet and medication barcode used date and name to identify patient. Patient is going to have a pacemaker placed this afternoon so will not be back here afterward. VSS and he is in good spirits. He is on RA, Telemetry with SR in the 60's, IV with N/S running at 100 Ml/Hr. TM
[2017-03-01] MEDS ORDERED: 0.9% Sodium Chloride 1,000 ML IV PRN (06:00)
[2017-03-01 06:12] LABS: BASOPHILS % (AUTO) 0.2 % (0-3); Mean Corpuscular Hemoglobin 31.3 pg (27.0-35.0); Mean Corpuscular Volume 90.1 fL (81-100); NEUTROPHILS % (AUTO) 60.4 % (40-74); Platelet Count 206 bil/L (150-400)
[2017-03-01 06:40] LABS: INR 0.95 ratio
[2017-03-01] MEDS: Heparin 5,000 Unit/mL Inj SUBQ SCH ×2 (08:30→21:13)
[2017-03-01] MEDS: levETIRAcetam 500 mg Tablet PO SCH ×2 (08:47→21:13)
[2017-03-01] MEDS ORDERED: Vancomycin Inj 1,000 MG in IV Premix 1 EACH IV ONE (12:00)
[2017-03-01] MEDS ORDERED: Bupivacaine-MPF 0.5% 30 mL Inj ONE (12:33)
[2017-03-01] MEDS ORDERED: 0.9% Sodium Chloride 250 ML ONE (12:33)
[2017-03-01] MEDS ORDERED: Heparin 10,000 Unit/1,000 mL NS Premix IV ONE (12:33)
[2017-03-01] MEDS ORDERED: Water for Injection 50 ML IV ONE (12:34)
[2017-03-01] MEDS ORDERED: Vancomycin 1,000 mg Inj ONE (12:34)
--- NOTE | 2017-03-01 12:48 | NUR ---
Social Work: FELIPE SW visited patient's room to deliver FELIPE. FELIPE has been signed by patient's spouse. PHAN Cam
[2017-03-01] MEDS ORDERED: fentaNYL-PF 50 mCg/mL 2 mL Inj ONE (13:10)
--- NOTE | 2017-03-01 13:42 | NUR ---
Optometric Technician Patient to Optometric Technician for pacemaker placement approximately 1245. Family informed of waiting area near procedure area. Will go to [facility] Unit after SURINDER recovery. Report given to SURINDER RN. All belongings gathered and taken by .
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
--- NOTE | 2017-03-01 15:21 | DRSVH ---
PROCEDURE: X-RAY CHEST ONE VIEW, PORTABLE ([id number]) INDICATIONS: For new leads placed TECHNIQUE: One view of the chest was acquired. COMPARISON: [facility], CR, XR CHEST 1VW (PORTABLE), 02/23/2017, 8:49. FINDINGS: Surgical changes and devices: There is a new dual-lead cardiac pacer. Lungs and pleura: No pleural effusions or pneumothorax. Lungs are clear. Mediastinum: Mediastinal contours appear normal. Heart size is normal. Bones and chest wall: No suspicious bony lesions. Overlying soft tissues appear unremarkable. IMPRESSION: No pneumothorax after pacer placement. Dictated by: Chelsy Stone M.D. on 03/01/2017 at 15:18 Approved by: Chelsy Stone M.D. on 03/01/2017 at 15:19
--- NOTE | 2017-03-01 17:16 | NUR ---
transfer pt transferred post pacer. pt denies pain/SOB/distress. pt arrived with a dinner tray and two cups of fluids. pt asks to be put into his sling per the instructions he was given post surgery. Sling is to be worn as a reminder to not use his arm, for the first 24hrs while up and while sleeping. pt states that he has been drinking lots of water throughout the day. Addendum: 03/01/17 at 1719 by MOY GLOVER RN pt arrived on [facility] floor at 1705
--- NOTE | 2017-03-01 18:03 | OP ---
[address] [address] OPERATIVE REPORT PATIENT: IFTIKHAR HUIZAR : 1930 MR#: [id number] ADMIT: 02/25/2017 JOB ID: [id number] DATE OF SURGERY: 03/01/2017 SURGEON: Andrea Tomlin MD REORDERING CLERK: Tamie Sharif PREOPERATIVE DIAGNOSIS(ES): Sick sinus syndrome. POSTOPERATIVE DIAGNOSIS(ES): Sick sinus syndrome. PROCEDURE PERFORMED: 1. Dual-chamber pacemaker implantation. 2. Fluoroscopy. IMPLANTED DEVICE: 1. [employer] pulse generator, model [id number]. 2. RA lead, [employer] 2088TC, 46 cm, serial number [id number]. 3. RV lead [facility] 2088TC, 52 cm, serial number [id number]. ANESTHESIA: Bolus dosing of Versed and fentanyl were administered for an appropriate level of sedation. INDICATION: This patient is a pleasant, 86-year-old man with preserved LV function, paroxysmal atrial fibrillation, chronic left bundle branch block, and recurrent syncope with documented sinus bradycardia. After discussion of risks and benefits of pacemaker implantation, he opted to proceed. PROCEDURAL DESCRIPTION: Following informed signed consent, the patient was taken to the EP Laboratory in a fasting state. She was prepped and draped in the usual sterile fashion. The left infraclavicular region was infiltrated with 40 cc of a 50/50 mixture bupivacaine and lidocaine. Once adequate anesthesia had been achieved, a 3 cm transverse . Dissection was carried down to the pectoralis fascia. A pocket was then fashioned using combination of electrocautery and blunt dissection. Once adequate hemostasis had been achieved, access to the left axillary vein was gotten with a micropuncture needle twice to deploy two 0.035, 3 mm J guidewires. Over the first of these, a 6-Moldovan tear-away sheath was advanced. fixation was RV outflow tract only the RV apex. The lead was affixed in position using associated fixation screw external analyzer and demonstrated appropriately sensed R waves, 10 V and there is no diaphragmatic stimulation. Attention was now paid to the right atrial lead. Over over the other previously deployed J guidewire, another 6-Moldovan tear-away sheath was advanced. Once the guidewire was removed, an active fixation lead was advanced to the right atrial appendage. It was affixed in position using associated active fixation screw external analyzer and demonstrated appropriately sensed P waves, at 10 V and there was no evidence of diaphragmatic stimulation. Once the position and redundancy of both leads had been confirmed in multiple fluoroscopic views, leads were anchored to the prepectoralis fascia using the associated anchoring sleeves and two Ethibond sutures. The pocket was copiously irrigated with antibiotic solution. using 1-0 Ti-Cron suture. The incision was then closed with running layers of absorbable suture. The wound was dressed with skin adhesive and a small dressing. At the end of the procedure, counts were all correct. COMPLICATIONS: None. ESTIMATED BLOOD LOSS: Negligible. DEVICE MEASURED DATA: 1. Right atrial lead 2.1 mV, 460 ohms, 0.75 V at 0.4 msec. 2. RV lead 9.1 mV, 540 ohms, 0.5 V at 0.4 msec. FINAL PROGRAM PARAMETERS: DDDR 60-130 beats per minute with VIP on. IMPRESSION: Successful dual-chamber pacemaker implantation. PLAN: 1. Stat portable chest x-ray. 2. Lateral chest x-ray in the morning. 3. Device interrogation. 4. IV vancomycin 5. Doxycycline 100 mg p.o. daily x7 days ATTENDING STATEMENT: Andrea Tomlin MD, Electrophysiology attending, was present for and has supervised/performed all aspects of this procedure.
--- NOTE | 2017-03-01 18:05 | PROG NOTE ---
[address] [address] PROGRESS NOTE PATIENT: IFTIKHAR HUIZAR : 1930 MR#: [id number] ADMIT: 02/25/2017 JOB ID: [id number] DATE: 03/01/2017 ELECTROPHYSIOLOGY NOTE: IDENTIFICATION AND HISTORY OF PRESENT ILLNESS: The patient is a pleasant 86-year-old man with preserved LV function, previous stroke, seizure disorder. Admitted for the 3rd time in the past few weeks with recurrent syncope. This time he walked to the bathroom and his heard a thud. She went in and he had fallen to the ground. He has a baseline left bundle branch block and has had documented paroxysmal atrial fibrillation. He is not on anticoagulation given his frequent falls. He had documented bradycardia with heart rates in the 30s on at least one occasion by paramedics upon arrival. He is not on any offending agents in terms of AV yoon blockers or heart rate lowering medications. IMPRESSION AND RECOMMENDATION: The patient is a pleasant 86-year-old man with preserved LV function, paroxysmal atrial fibrillation, chronic left bundle branch block, and recurrent syncope with documented sinus bradycardia. I recommended a dual-chamber pacemaker implantation. I discussed the risks and benefits at length in the presence of his family. Ultimately he wishes to proceed. PLAN: Dual-chamber pacemaker implantation. Thank you very much for allowing me to participate in the care of this patient. Please call with questions.
[2017-03-02] VITALS (9 sets, daily range): BP systolic 108–160; BP diastolic 50–73; PULSE 59–77; RESP 16–18; O2SAT 95–96
[2017-03-02] MEDS: 0.9% Sodium Chloride 1,000 ML IV SCH ×6 (00:35→21:14)
[2017-03-02] MEDS: Sodium Chloride LOK Flush 10 mL Syringe IVFLUSH SCH ×3 (00:48→15:55)
[2017-03-02] MEDS ORDERED: Vancomycin Inj 1,000 MG in IV Premix 1 EACH IV ONE (02:35)
--- NOTE | 2017-03-02 03:44 | NUR ---
pacer Tele paced in the 70s. dressing to left upper chest CDI; no hematoma noted. denies pain or discomfort. Pt still wearing left arm sling. needs to be reminded sometimes about pacer precaution; compliant when reminded. SBA to the BR; gait steady. seizure pads on; no seizure activity this shift.
[2017-03-02] MEDS: Heparin 5,000 Unit/mL Inj SUBQ SCH ×2 (08:16→20:05)
[2017-03-02] MEDS: levETIRAcetam 500 mg Tablet PO SCH ×2 (09:27→20:05)
--- NOTE | 2017-03-02 11:54 | PCM.PNMED ---
Subjective Date of Service Mar 02, 2017 Subjective Underwent pacemaker insertion. Patient states he feels better today. Pain at pacemaker site controlled Exam Vital Signs Vital Sign - Last Date Time Temp Pulse Resp B/P Pulse Ox O2 Delivery O2 Flow Rate FiO2 03/02/17 10:24 36.7 64 18 108/60 96 Room Air 02/27/17 07:30 2.00 Intake and Output 03/01/17 03/01/17 03/02/17 Cumulative From/Thru 15:00 23:00 07:00 02/25/17 06:53 - 03/02/17 06:17 Intake Total 400 ml 100 ml 18274 ml Output Total 350 ml 900 ml 43121 ml Balance -350 ml -500 ml 100 ml 5814 ml Intake Oral 400 ml 100 ml 8400 ml IV Total 8861 ml Output Urine Total 350 ml 900 ml 94422 ml # Voids 5 13 # Bowel Movements 0 3 Exam GENERAL: Alert, weak, in bed HEAD: atraumatic, normocephalic EYES: EOMI, anicteric SKIN: Skin color normal, turgor normal. Cleanly dressed pacemaker site EAR, NOSE, MOUTH, THROAT: Lips, oral mucosa, tongue are moist, pink, no lesions. NECK: no jugulovenous distention; supple ROM normal. RESPIRATORY: Lungs clear to auscultation. CARDIAC: normal S1 and S2; no rubs, or gallops; irregular rhythm ABDOMEN: Abdomen soft, non-tender. MUSCULOSKELETAL: ROM full, muscles are not tender EXTREMITIES: no pitting edema in LE, no new deformities or skin discoloration. NEURO: Alert, oriented X 3, Cranial nerves II-XII intact, Grossly normal motor function. PULSES: 2+ radial, 2+ carotid IVs and Medications Medications Reviewed: Medications were reviewed in detail Lab and Diagnostics Result Diagram: 03/01/1744 03/01/17 0544 Additional Diagnostics DATE OF SURGERY: 03/01/2017 SURGEON: Andrea Tomlin MD MEDICAL STAFF DIRECTOR: Tamie Sharif PREOPERATIVE DIAGNOSIS(ES): Sick sinus syndrome. POSTOPERATIVE DIAGNOSIS(ES): Sick sinus syndrome. PROCEDURE PERFORMED: 1. Dual-chamber pacemaker implantation. 2. Fluoroscopy. IMPLANTED DEVICE: 1. [employer] pulse generator, model [id number]. 2. RA lead, [employer] 2088TC, 46 cm, serial number [id number]. 3. [facility], 52 cm, serial number [id number]. Assessment & Plan 86-year-old male with seizure disorder on Keppra follows up at the [facility], recent hospitalization in Jan with TIA vs seizure episode, hx of CVA, HTN, paroxysmal A. fib, mild cognitive dysfunction presented to ED with episodes of unresponsiveness/confusion, ?seizures today. Patient was discharge from the hospital1 day prior o this admission in stable condition(he was admitted for similar reason). In ED he had mild leukocytosis . Neurology service was consulted by ED. Dr. Crawford advised CT angio of the head and neck, EEG. Cardiology was also consulted, advised pacemaker placement. #Syncopal episode due to sick sinus syndrome. Paroxysmal A. fib with RVR with hypotension - s/p PPM 03/01. Doxycycline 100 mg daily prophylaxis for 1 week -Started metoprolol tartrate 50 mg by mouth twice a day started 03/02 - recent CT head - chronic changes - neurologist Dr. Crawford and EP Dr Tomlin consulted - monitor on telemetry - seizure precautions - neurocheck q6h -continue home AEDs, Keppra , ASA -PT eval today #Hypertension - stable - resume losratan #Cognitive decline - stable #Iron-deficiency anemia, present on admission, - stable, - continue iron supplement #Chronic neck and back pain - secondary to being electrocuted in the past - continue patients home dose of gabapentin. DVT PROPHYLAXIS: Sequential compression devices Code status: I discussed with the patient code status, we talked in details about intubation, chest compressions, defibrillation, chemical code. All questions answered. Patient verbalized understanding. Patient would like to be DO NOT RESUSCITATE DO NOT INTUBATE. Patient declined intubation, chest compressions, defibrillations and other electrical shocks, chemical code. Family respected his decision. Disposition: discharge tomorrow Plan of care discussed with treatment team, Labs, radiology tests, Tele and recent ECG reviewed. Plan of care, available alternatives were discussed and reviewed with patient/ family. All questions answered. Patient/family verbalized understanding, approved and agreed to plan of care. VTE Mechanical Devices: Venous Foot Pump Ramón Burnett MD Mar 02, 2017 11:54
[2017-03-02] MEDS: HYDROcodone-APAP 5-325 mg Tablet PO PRN (12:59)
--- NOTE | 2017-03-02 13:15 | NUR ---
Evaluation completed. Please go to "Notes" then click on "Assessments and Notes" (bottom left corner of screen). Then select appropriate discipline tab on top of screen.
[2017-03-03] VITALS (8 sets, daily range): BP systolic 92–149; BP diastolic 55–67; PULSE 48–74; RESP 16–20; O2SAT 93–96
[2017-03-03] MEDS: Sodium Chloride LOK Flush 10 mL Syringe IVFLUSH SCH ×3 (01:25→17:33)
[2017-03-03] MEDS: HYDROcodone-APAP 5-325 mg Tablet PO PRN ×2 (04:12→08:47)
--- NOTE | 2017-03-03 05:49 | NUR ---
Post Pacer Placement Day 2 Pt denies chest or incisional pain, or SOB,fever,chills. Incision at left upper chest approximated well, appears shinny sealing material at the incision, slightly pink in color, no drainage or hematoma or edema, dressing has been removed by MD per pt. Pt instructed post pacer precaution: no affected arm abduction>90 degree, no lifting/push/pull > 10 pounds for 30 days, pt verbalizes understanding, and cooperative. Tele: A or AV paced 70s, PVCs per air conditioning technician. VSS,afebrile. Pt informed the plan of multi-disciplinary rounding and discharge today
[2017-03-03] MEDS: 0.9% Sodium Chloride 1,000 ML IV SCH ×3 (05:57→16:35)
[2017-03-03 08:10] LABS: BASOPHILS % (AUTO) 0.5 % (0-3); EOSINOPHILS % (AUTO) 3.8 % (0-5); MONOCYTES % (AUTO) 11.4 % (4-12); Mean Corpuscular Hemoglobin 31.7 pg (27.0-35.0); Mean Corpuscular Volume 91.9 fL (81-100); NEUTROPHILS % (AUTO) 58.7 % (40-74); Platelet Count 214 bil/L (150-400)
[2017-03-03] MEDS: Heparin 5,000 Unit/mL Inj SUBQ SCH ×2 (08:30→20:21)
[2017-03-03] MEDS: levETIRAcetam 500 mg Tablet PO SCH ×2 (08:48→20:18)
[2017-03-03 09:08] LABS: Magnesium 1.9 mg/dL (1.6-2.6)
--- NOTE | 2017-03-03 09:58 | NUR ---
Confusion Family reporting "not right." Found in room sitting in chair alert to self but not year. Weak, pale, no responding in full sentences. Charge, agent telegrapher and MD notified. Blood sugar 134, BP and HR low. Assisted back to bed using 2PA. Verbal responses improving. MD assessed. Addendum: 03/03/17 at 1654 by GREG GARCIA RN Cardiology consulted and assessed, medication orders adjusted.
--- NOTE | 2017-03-03 13:04 | DRSVH ---
PROCEDURE: X-RAY CHEST ONE VIEW, PORTABLE ([id number]) INDICATIONS: confusion,s/p PPM TECHNIQUE: One view of the chest was acquired. COMPARISON: [facility], CR, XR CHEST 2VW, 03/02/2017, 6:33. [facility], CR, XR CHEST 1VW (PORTABLE), 03/01/2017, 15:02. FINDINGS: Surgical changes and devices: Stable over time, pacemaker appears normal. Lungs and pleura: No pleural effusions or pneumothorax. Lungs are clear. Mediastinum: Mediastinal contours appear normal. Heart size is normal. Bones and chest wall: No suspicious bony lesions. Overlying soft tissues appear unremarkable. IMPRESSION: No source of confusion is identified. Prior extensive cervical fusion surgeries. Pacem aking device and dual chamber leads normal. Dictated by: Jayro Man M.D. on 03/03/2017 at 13:02 Approved by: Jayro Man M.D. on 03/03/2017 at 13:03
--- NOTE | 2017-03-03 13:29 | PROG NOTE ---
[address] [address] PROGRESS NOTE PATIENT: IFTIKHAR HUIZAR : 1930 MR#: [id number] ADMIT: 02/25/2017 JOB ID: [id number] DATE: 03/03/2017 Hospitalist, Dr. Burnett, asked me to see this patient as he had unresponsive episode this morning. This is the first time I am seeing this patient. At present, he is lying down. I talked to his who was there when he had unresponsive episode. I spoke to his daughter as well. According to the , they came to his room this morning and found that he was sitting on a chair but leaning on the table and staring and was unresponsive. However, he was breathing. He did not respond to their questions. Eventually, they asked nursing staff to come and nursing staff put the patient on the bed. Then slowly he came and resumed consciousness. They did not see any motor type of seizure activity or tongue biting or incontinence. The patient denies any active chest pain or palpitation or stroke-like symptoms or fever, chills, or bleeding. OBJECTIVE: Blood pressure 92/55, heart rate 74, respiratory rate 18, oxygen saturation room air 96%. Telemetry revealed AV sequential paced rhythm and some intermittent PVCs. No apparent JVP. Chest: No obvious crepitation or rhonchi. CVS: S1, S2 normal. No S3, no S4. There is soft ejection systolic murmur at the base. Abdomen: No pulsatile mass. Extremities: No significant pedal edema. In fact, patient appears a little bit on dry side. MACHINING ENGINEER: At present patient is drowsy but easy to arouse. Able to move all the four extremities. LABORATORIES: Hemoglobin 12.1, platelets 214, WBC 8.4. Sodium 139, potassium 4.3, BUN 15, creatinine 0.92. Recent troponin normal. AST, ALT normal. He had echocardiogram on February 24, 2017. At that time, LV ejection fraction 60% to 65% without any significant valvular pathology and normal right ventricular function. The patient underwent [employer] dual-chamber pacemaker by Dr. Tomlin on March 01, 2017, for sick sinus syndrome. The patient has underlying paroxysmal AFib, chronic left bundle branch block and recurrent syncope with documented sinus bradycardia. ASSESSMENT/PLAN: Prolonged episode of unresponsiveness. The patient has known sick sinus syndrome, paroxysmal atrial fibrillation, left bundle branch block, hypertension, and recently got dual-chamber permanent pacemaker. The pacemaker is functioning normally. On recent echocardiogram left ventricular function preserved. No significant valvular pathology. On telemetry, no obvious ventricular tachycardia other than isolated premature ventricular contractions. I had a detailed discussion with the patient's family and they told me whenever he gets seizure episode, it is like unresponsiveness. He does not have any motor component. He has known history of seizure disorder. This episode of unresponsiveness likely a seizure episode. I will recommend revisit by Neurology for that issue. His blood pressure is low-normal. At present, I will recommend holding his blood pressure medication. Will also recommend gentle fluid hydration. As Dr. Mazariegos mentioned that ideally he should be on anticoagulation but he has fall risk. At present, he is not on anticoagulation. Continue aspirin. Discussed the plan with Dr. Burnett and patient's family. They agreed and concur. Pacemaker site appears to be healing okay. At this point of time, Cardiology service will sign off and see him as needed. Follow up with Dr. Tomlin as an outpatient as planned. Total time spent reviewing his hospital records, having discussion with the hospitalist team and family members, about 40 minutes.
--- NOTE | 2017-03-03 15:04 | PCM.PNMED ---
Subjective Date of Service Mar 03, 2017 Subjective Patient was seen and slumped on table this morning with brief unresponsiveness followed by brief confusion. He was unable to recognize his . BP low 92/ 55,HR on monitor 58. Frequent PVCs during episode.patient was briefly confused.nurse put him on supine in bed, symptoms resolved and blood pressure improved. states he had similar episodes during seizure attacks. Exam Vital Signs Vital Sign - Last Date Time Temp Pulse Resp B/P Pulse Ox O2 Delivery O2 Flow Rate FiO2 03/03/17 11:40 74 03/03/17 09:53 36.3 18 92/55 96 Room Air 02/27/17 07:30 2.00 Intake and Output 03/02/17 03/02/17 03/03/17 Cumulative From/Thru 15:00 23:00 07:00 02/25/17 06:53 - 03/02/17 20:10 Intake Total 1090 ml 56237 ml Output Total 05967 ml Balance 1090 ml 6904 ml Intake Oral 1090 ml 9490 ml IV Total 8861 ml Output Urine Total 12407 ml # Voids 3 16 # Bowel Movements 1 1 5 Exam GENERAL: Alert, weak, in bed HEAD: atraumatic, normocephalic EYES: EOMI, anicteric SKIN: Skin color normal, turgor normal. Cleanly dressed pacemaker site EAR, NOSE, MOUTH, THROAT: Lips, oral mucosa, tongue are moist, pink, no lesions. NECK: no jugulovenous distention; supple ROM normal. RESPIRATORY: Lungs clear to auscultation. CARDIAC: normal S1 and S2; no rubs, or gallops; irregular rhythm ABDOMEN: Abdomen soft, non-tender. MUSCULOSKELETAL: ROM full, muscles are not tender EXTREMITIES: no pitting edema in LE, no new deformities or skin discoloration. NEURO: Alert, oriented X 3, Cranial nerves II-XII intact, Grossly normal motor function. PULSES: 2+ radial, 2+ carotid IVs and Medications Medications Reviewed: Medications were reviewed in detail Lab and Diagnostics Result Diagram: 03/03/17 0755 03/03/17 0755 Additional Diagnostics DATE OF SURGERY: 03/01/2017 SURGEON: Andrea Tomlin MD FIELD STAFF: Tamie Sharif PREOPERATIVE DIAGNOSIS(ES): Sick sinus syndrome. POSTOPERATIVE DIAGNOSIS(ES): Sick sinus syndrome. PROCEDURE PERFORMED: 1. Dual-chamber pacemaker implantation. 2. Fluoroscopy. IMPLANTED DEVICE: 1. [employer] pulse generator, model [id number]. 2. RA lead, [employer] 2087TC, 46 cm, serial number [id number]. 3. RV lead [facility] 2087TC, 52 cm, serial number [id number]. Assessment & Plan 86-year-old male with seizure disorder on Keppra follows up at the [facility], recent hospitalization in Jan with TIA vs seizure episode, hx of CVA, HTN, paroxysmal A. fib, mild cognitive dysfunction presented to ED with episodes of unresponsiveness/confusion, ?seizures today. Patient was discharge from the hospital1 day prior o this admission in stable condition ( he was admitted for similar reason ). In ED he had mild leukocytosis . Neurology service was consulted by ED. Dr. Crawford advised CT angio of the head and neck, EEG. Cardiology was also consulted, advised pacemaker placement. #Syncopal episode due to sick sinus syndrome. Paroxysmal A. fib with RVR with hypotension - s/p PPM 03/01. Doxycycline 100 mg daily prophylaxis for 1 week -Started metoprolol tartrate 50 mg by mouth twice a day started 03/02 - recent CT head - chronic changes - neurologist Dr. Crawford and EP Dr Tomlin consulted - monitor on telemetry - seizure precautions - neurocheck q6h -continue home AEDs, Keppra , ASA -PT eval today # Brief unresponsiveness and confusion on 03/03 -Due to seizure versus orthostatic hypotension due to neuropathy versus pacemaker malfunction vs -Unclear if this episode is similar to prior episodes. Nephrology was consulted initially prior to pacemaker and did not think episodes are seizure. -He was started on metoprolol 50 mg by mouth twice a day per Cardiology recommendation yesterday.lowered to 12.5 bid with holding parameter SBP< 100,HR < 60 -lowered valsartan to 40 bid from 80 bid with holding .continue 5 mg daily -UA requested # history of seizure -continue keppra #Hypertension - stable - resumed losratan at lower dose #Cognitive decline - stable #Iron-deficiency anemia, present on admission, - stable, - continue iron supplement #Chronic neck and back pain - secondary to being electrocuted in the past - continue patients home dose of gabapentin. DVT PROPHYLAXIS: Sequential compression devices Code status: I discussed with the patient code status, we talked in details about intubation, chest compressions, defibrillation, chemical code. All questions answered. Patient verbalized understanding. Patient would like to be DO NOT RESUSCITATE DO NOT INTUBATE. Patient declined intubation, chest compressions, defibrillations and other electrical shocks, chemical code. Family respected his decision. Disposition: discharge tomorrow Plan of care discussed with treatment team, Labs, radiology tests, Tele and recent ECG reviewed. Plan of care, available alternatives were discussed and reviewed with patient/ family. All questions answered. Patient/family verbalized understanding, approved and agreed to plan of care. eventually home,will resume HH with [facility] VTE Mechanical Devices: Venous Foot Pump Ramón Burnett MD Mar 03, 2017 15:04
--- NOTE | 2017-03-03 16:53 | NUR ---
Social Work Note: Continued Discharge Planning/Readiness for Discharge Data& Assessment: Per MD in multidisciplinary rounds, pt is getting closer to being medically ready for discharge. Pt underwent pacemaker placement on 03/01/2017 and has recovered well. Pt continues to do well with PT, but discharge plan continues to remain home with [facility] RN and PT for additional strengthening in the home and RN for vitals. No other MD orders identified at this time. BIOINFORMATICS SUPPORT SPECIALIST to continue to follow for any new pt needs or MD orders. Plan: Anticipated discharge home via POV with [facility] PT and RN when medically ready. BIOINFORMATICS SUPPORT SPECIALIST to continue to follow if any new MD orders or pt needs arise. PHAN Ordaz
[2017-03-03] MEDS ORDERED: .Epic Conversion Completed XX PRN (17:00)
--- NOTE | 2017-03-04 16:48 | DRSVH ---
PROCEDURE: X-RAY CHEST, TWO VIEWS ([id number]) INDICATIONS: For new lead placement TECHNIQUE: 2 views of the chest were acquired. COMPARISON: [facility], CR, XR CHEST 2VW, 12/07/2016, 10:47. FINDINGS: Surgical changes and devices: Lower cervical spine fixation hardware redemonstrated. Dual chamber le ft cardiac pacemaker present in expected position. Lungs and pleura: No pleural effusions or pneumothorax. Lungs are clear. Mediastinum: Mediastinal contours are normal. Heart size is enlarged. Bones and chest wall: No suspicious bony abnormalities. Soft tissues appear unremarkable. IMPRESSION: No immediate complications status post cardiac pacemaker placement. Dictated by: Miak SPANGLER Interpreted: Yana Galvan MD on 03/02/2017 at 8:24 Approved by: Yana Galvan M.D. on 03/04/2017 at 16:46
== END 2017-03-04 01:33 | disposition admitted as inpatient to this hospital (09) | DRG 244 ==
LOC: SED 06:43 → EDBD 06:43 → OBSVTOIN 10:45 → MOC 10:45 → MPC 03-01 17:52
PROVIDERS: ADMIT Internal Medicine; ATTEND Internal Medicine
PROC: 0JH606Z Insertion of Pacemaker, Dual Chamber into Chest Subcutaneous Tissue and Fascia, Open Approach (ICD-10-PCS; principal; 2017-02-25)
PROC: 02HK3JZ Insertion of Pacemaker Lead into Right Ventricle, Percutaneous Approach (ICD-10-PCS; 2017-02-25)
PROC: 02H63JZ Insertion of Pacemaker Lead into Right Atrium, Percutaneous Approach (ICD-10-PCS; 2017-02-25)
DX: I49.5 Sick sinus syndrome (principal); G40.909 Epilepsy, unspecified, not intractable, without status epilepticus; I48.0 Paroxysmal atrial fibrillation